=== PATIENT | male | born 1970 | race Caucasian/White ===

== ENCOUNTER 2019-07-30 15:38 | Inpatient (IN) | payer OTHER ==
[2019-07-30] VITALS (9 sets, daily range): BP systolic 140–158; BP diastolic 70–84
[~2019-07-30] VITALS: Ht 175.2 cm; Wt 111.0 kg
[2019-07-30] MEDS ORDERED: KETAMINE/NaCl 50 MG/5 ML SYRINGE (ED ONLY) ONE (15:49)
[2019-07-30] MEDS ORDERED: fentaNYL INJECTION 100 MCG/2 ML AMP ONE ×2 (15:50→20:10)
[2019-07-30] MEDS ORDERED: ONDANSETRON 4 MG/2 ML (SDV) Z0FRAN ONE ×3 (15:50→23:30)
[2019-07-30 16:00] LABS: HEMOGLOBIN 13.9 G/DL (13.3-17.7); MEAN PLATELET VOLUME 11.4 FL (7.4-10.4); RED CELL DISTRIBUTION WIDTH 13.2 % (10.0-14.5); WHITE BLOOD COUNT 29.5 10^3/uL (4.3-11.0)
[2019-07-30] MEDS ORDERED: HOLD METFORMIN - RECEIVED CONTRAST 20 ML VIAL IV SCH ×2 (16:00→16:15)
[2019-07-30] MEDS ORDERED: fentaNYL INJECTION 100 MCG/2 ML AMP IVP ONE (16:00)
[2019-07-30] MEDS ORDERED: NS 100 ML (IVPB) BAG IV ONE ×2 (16:00→16:15)
[2019-07-30] MEDS ORDERED: KETAMINE/NaCl 50 MG/5 ML SYRINGE (ED ONLY) IV ONE (16:00)
[2019-07-30] MEDS ORDERED: IOHEXOL 350 MG/ML 100 ML (OMNIPAQUE 350) VIAL IV ONE ×2 (16:00→16:15)
--- NOTE | 2019-07-30 16:18 | Diagnostic Imaging Report ---
INDICATION: Femur fracture. TIME OF EXAMINATION: 3:52 PM. COMPARISON: No prior studies are available for comparison. FINDINGS: The heart size is normal. The pulmonary vascularity is unremarkable. The lungs are clear. No infiltrate, effusion, or pneumothorax is detected. IMPRESSION: No acute cardiopulmonary process is detected. Dictated by: Dictated on workstation # [id number]
[2019-07-30 16:22] LABS: ALANINE AMINOTRANSFERASE 43 U/L (0-55); ALBUMIN 3.6 GM/DL (3.2-4.5); ALKALINE PHOSPHATASE 25 U/L (40-136); BILIRUBIN,DIRECT 0.1 MG/DL (0.0-0.3); BILIRUBIN,INDIRECT 0.3 MG/DL; BILIRUBIN,TOTAL 0.4 MG/DL (0.1-1.0); BUN/CREATININE RATIO 32; CARBON DIOXIDE 17 MMOL/L (21-32); CHLORIDE 102 MMOL/L (98-107); CREATININE SERUM 1.13 MG/DL (0.60-1.30); GFR ESTIMATED > 60; GLUCOSE 242 MG/DL (70-105); POTASSIUM 4.2 MMOL/L (3.6-5.0); SODIUM 134 MMOL/L (135-145)
--- NOTE | 2019-07-30 16:24 | Diagnostic Imaging Report ---
EXAMINATION: Left femur 2 or more views. HISTORY: Trauma. FINDINGS: No comparison available. There is a displaced comminuted and angulated mid left femoral fracture with an 11 cm butterfly fragment. Knee joint and hip joint alignment is normal. IMPRESSION: 1. Displaced, angled and comminuted midshaft left femoral fracture with large butterfly fragment. Dictated by: Dictated on workstation # [id number]
--- NOTE | 2019-07-30 16:24 | Diagnostic Imaging Report ---
INDICATION: Trauma. TIME OF EXAM: 03:54 p.m. FINDINGS: AP view of the pelvis shows femoral acetabular alignment to be normal. Both hips appear to be intact. Very slight prominence of the symphysis is noted. Left superior pubic ramus also appears to be slightly cephalad to the right superior pubic ramus. SI joints do not appear to be widened. No definite fracture is seen. IMPRESSION: There is very slight widening of the symphysis pubis as well as some minimal malalignment between the superior pubic rami. Pelvic fractures cannot be excluded, although no definite SI joint widening is seen. CT through the pelvis is recommended for further evaluation. This was discussed with Dr. Sanchez of the emergency department prior to this dictation. Dictated by: Dictated on workstation # [id number]
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
[2019-07-30] MEDS ORDERED: LIDOCAINE UROJET 2% GEL 10 ML PKG ONE (16:43)
[2019-07-30] MEDS ORDERED: HYDROmorphone 2 MG/ML VIAL (DILAUDID) ONE ×3 (16:43→22:35)
[2019-07-30] MEDS ORDERED: ONDANSETRON 4 MG/2 ML (SDV) Z0FRAN IVP ONE ×2 (16:45→20:15)
[2019-07-30] MEDS ORDERED: HYDROmorphone 2 MG/ML VIAL (DILAUDID) IV ONE ×3 (16:45→23:15)
[2019-07-30] MEDS ORDERED: LIDOCAINE UROJET 2% GEL 10 ML PKG TOP ONE (16:45)
[2019-07-30] MEDS ORDERED: TRANEXAMIC ACID INJECTION 1,000 MG in NS (IVPB) 50 ML IV ONE (16:45)
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
[2019-07-30] MEDS ORDERED: TRANEXAMIC ACID 100 MG/ML 10 ML INJECTION IV ONE (16:55)
[2019-07-30] MEDS ORDERED: NS (IVPB) 250 ML ONE (16:55)
[2019-07-30] MEDS ORDERED: TRANEXAMIC ACID INJECTION 1,000 MG in NS (IVPB) 250 ML IV SCH (17:00)
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
[2019-07-30] MEDS ORDERED: ceFAZolin 2 GM IV Premixed 50 ML IV ONE (18:00)
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
[2019-07-30 18:14] LABS: BILIRUBIN,URINE NEGATIVE (NEGATIVE); CLARITY,URINE CLEAR; COLOR,URINE YELLOW; GLUCOSE, URINE (UA) 1+ (NEGATIVE); KETONES,URINE NEGATIVE (NEGATIVE); LEUKOCYTE ESTERASE ,URINE NEGATIVE (NEGATIVE); NITRITE,URINE NEGATIVE (NEGATIVE); PH,URINE 5 (5-9); PROTEIN,URINE 2+ (NEGATIVE)
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
[2019-07-30 18:21] LABS: AMORPHOUS SEDIMENT,UR FEW AMOR URATES /LPF; BACTERIA,URINE TRACE /HPF; SQUAMOUS EPITHELIAL CELL,UR 0-2 /HPF
[2019-07-30] MEDS ORDERED: TETANUS,DIPTH,PERTUSS P/F (BOOSTRIX) 0.5 ML VIAL IM ONE (19:00)
[2019-07-30] MEDS: LACTATED RINGERS 1,000 ML IV SCH ×2 (19:09→21:45)
[2019-07-30] MEDS ORDERED: LIDOCAINE PF 2% 5 ML (XYLOCAINE) VIAL ONE (20:10)
[2019-07-30] MEDS ORDERED: SUCCINYLCHOLINE INJ 100 MG/5 ML SYR ONE (20:10)
[2019-07-30] MEDS ORDERED: ROCURONIUM 10 MG/ML 5 ML SYRINGE IV ONE (20:10)
[2019-07-30] MEDS ORDERED: DEXAMETHASONE 10 MG/ML (DECADRON) 1 ML VIAL ONE (20:10)
[2019-07-30] MEDS ORDERED: proPOfol 200 MG/20 ML (DIPRIVAN) VIAL IV ONE (20:10)
[2019-07-30] MEDS ORDERED: SEVOFLURANE (ULTANE) 15 ML INHAL SOLN ONE ×7 (20:10→21:48)
[2019-07-30] MEDS ORDERED: MIDAZOLAM 2 MG/2 ML (VERSED) VIAL ONE (20:11)
[2019-07-30] MEDS ORDERED: ceFAZolin INJECTION 2,000 MG ONE (20:37)
[2019-07-30] MEDS ORDERED: ROPIVACAINE 5MG/ML 30ML VIAL ONE (21:52)
[2019-07-30] MEDS ORDERED: METOCLOPRAMIDE INJ 10 MG/2 ML (REGLAN) ONE (22:16)
[2019-07-30] MEDS ORDERED: NEOSTIGMINE 3 MG/3 ML VIAL ONE (22:21)
[2019-07-30] MEDS ORDERED: GLYCOPYRROLATE 0.2 MG/ML (ROBINUL) 2 ML VIAL ONE (22:21)
[2019-07-30] MEDS ORDERED: NEO/POLY/BAC (NEOSPORIN) OINT 15 GM TUBE ONE (22:30)
[2019-07-30] MEDS ORDERED: fentaNYL INJECTION 100 MCG/2 ML AMP IVP PRN (23:15)
[2019-07-30] MEDS ORDERED: ONDANSETRON 4 MG/2 ML (SDV) Z0FRAN IVP PRN (23:15)
[2019-07-30] MEDS ORDERED: MEPERIDINE (DEMEROL) INJ 50 MG/ML IVP ONE (23:15)
[2019-07-30] MEDS ORDERED: MEPERIDINE (DEMEROL) INJ 50 MG/ML ONE (23:48)
--- NOTE | 2019-07-30 23:53 | Operative Report - Ortho ---
Operative Report Surgeon (s)/Steam Shovel Operator (s) Surgeon MAGALI LI MD Steam Shovel Operator n/a Pre-Operative Diagnosis comminuted fracture left femoral shaft Post-Operative Diagnosis same Operative Report Date of Procedure: Jul 30, 2019 Name of Procedure Performed: Closed IM rodding left femoral shaft fracture. 12 mm x 400 mm IM ada with 2 proximal and 2 distal locking screws Description & Findings The patient was seen in the emergency room and treatment options were discussed. I am rodding was recommended. The patient would like proceed understanding the procedure risks and complications. Patient was given 2 g Ancef IV preoperatively. He is taken to the operating room and after administration of general anesthesia was placed on the fracture table. A traction post was used. The right leg was placed in the well leg dukes with flexion and abduction of the hip and flexion of the knee. The left foot and ankle were placed in the traction boot which was reinforced with Coban and. Traction was then placed across the fracture site. The hip was placed in adduction. Image is used to visualize the fracture and fracture was out to length but displaced in both views which could be corrected with posterior direction on the distal aspect of the proximal fragment and ADD duction of the distal aspect of the proximal fragment. Initially the foot was placed in about 10 of internal rotation. A timeout was then performed. The left hip thigh and knee were then prepped and draped in the usual sterile manner. Incision was made just proximal to the tip of the greater trochanter. This was taken down through subtendinous tissue and through the gluteal fascia down to the tip of the greater trochanter. A guidewire was placed in the medial aspect of the tip of the greater trochanter in the central portion on the lateral view and this was advanced into the proximal femur. This was then overreamed with proximal reamer. The guidewire was removed and a beaded guidewire was placed into the proximal fragment. Using the reduction device the fracture was able to be reduced fairly well and the guidewire was advanced across the fracture site in both AP and lateral views and down to the knee just at the level of the proximal patella. This was then measured and a 400 mm ada was selected. The femur was reamed over the guidewire initially with a 8.5 mm reamer and advancing every 0.5 mm up to 13 mm. There was good reaming both proximal and distal to the fracture with the 13 mm reamer starting in about 11- 1/2 mm. Traction was taken off of the femur at this point and the fracture gap was reduced to approximately 2 mm. This could not be corrected with additional manipulation at the fracture site. At this point the 12 mm x 400 mm ada was i nserted and with the fracture reduced fairly well was advanced across the fracture site down into the distal femur. It was advanced to just below the opening in the greater trochanter which left it added the level of the patella superiorly in the distal fragment. The fracture was fairly well reduced even the comminuted aspect with the large butterfly fragment posterior fairly well reduced. The small butterfly fragment was fairly well reduced. Attempts were made to close the gap down at the non-comminuted lateral aspect of the fracture but this could only be reduced to about 2 mm with attempts at reduction. It was felt was probably some soft tissue between the fragments at this level. At this point the rotation was evaluated and the foot was placed in neutral position which matched up the thickness of the cortices. This point the 2 proximal locking screws were inserted through small neck incisions and guides which were then measured after drilling and appropriate length screws were inserted. The proximal femoral guide was then removed. At this point the hip and femur were brought out into neutral position and again the rotation was evaluated and it was felt that rotation was appropriate and accurate. The image was set up in the lateral view for distal locking screw insertion. Once in position the proximal screw was placed through the static hole drilling measuring and inserti ng the appropriate length screw. The next screw was placed through the slot distally again with drilling measuring and inserting appropriate length screws. This point the entire femur was evaluated and permanent images were obtained. These were AP and lateral hip, AP and lateral of the knee and AP and lateral of the fracture site. The wounds were irrigated with normal saline. Fascia was closed with #1 Vicryl. Subtendinous tissue with 2-0 Vicryl and the skin with skin clips. All wounds were dressed with antibiotic ointment and Adaptic and 4 x 4's including the abrasion which was noted at the lateral aspect of the distal femur and around the knee. The leg was wrapped with Kerlix and an Wali wrap. The right leg was taken out of the well leg dukes and the left foot and ankle were taken of the traction boot. Both knees were evaluated and no instability was noted. The legs had equal internal and neck or rotation at the hips. Leg lengths were equal. Anesthesia then inserted a femoral nerve block. The patient was then transferred to his hospital bed then to ICU for recovery. He tolerated procedure well. After the procedure on review of the x-rays it was noted that the AP and lateral of the fracture site was not saved from image or fluoroscopy. Permanent x-rays of the femur will be obtained Anesthesia Type Gen. Estimated Blood Loss 150 mL's. Replacement none. Drains none Packing none. Specimen(s) collected/removed None MAGALI LI MD Jul 30, 2019 23:53 POS
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
[2019-07-31] VITALS (23 sets, daily range): BP systolic 108–154; BP diastolic 73–94
[2019-07-31] MEDS: LACTATED RINGERS 1,000 ML IV SCH ×4 (00:17→20:24)
[2019-07-31] MEDS ORDERED: fentaNYL INJECTION 100 MCG/2 ML AMP ONE (00:57)
[2019-07-31] MEDS: fentaNYL INJECTION 100 MCG/2 ML AMP IVP PRN ×5 (01:03→20:10)
--- NOTE | 2019-07-31 01:44 | NUR ---
Call placed to Dr Fitzgerald at this time to update on patient condition and to request stop order on TXA as per protocol patient dose is complete but order is continuous in the EMAR. Order to DC the TXA order and to hold Lovenox. also ordered patient to have CT scan in the am of abd/pelvis. Dilaudid 0.5mg IV q 2 hrs PRN pain also ordered. This RN will place telephone orders at this time.
[2019-07-31] MEDS ORDERED: HYDROmorphone 2 MG/ML VIAL (DILAUDID) ONE (01:55)
[2019-07-31] MEDS: HYDROmorphone 2 MG/ML VIAL (DILAUDID) IV PRN ×4 (01:58→23:50)
[2019-07-31 03:13] LABS: BASOPHILS % (AUTO) 0 % (0-10); EOSINOPHILS % (AUTO) 0 % (0-10); HEMATOCRIT 34 % (40-54); HEMOGLOBIN 11.8 G/DL (13.3-17.7); LYMPHOCYTES % (AUTO) 4 % (12-44); MEAN CORPUSCULAR HEMOGLOBIN 29 PG (25-34); MEAN CORPUSCULAR HGB CONC 35 G/DL (32-36); MEAN CORPUSCULAR VOLUME 82 FL (80-99); MEAN PLATELET VOLUME 11.2 FL (7.4-10.4); MONOCYTES # (AUTO) 1.5 X 10^3 (0.0-1.0); MONOCYTES % (AUTO) 6 % (0-12); NEUTROPHILS # (AUTO) 24.5 X 10^3 (1.8-7.8); NEUTROPHILS % (AUTO) 91 % (42-75); PLATELET COUNT 308 10^3/uL (130-400); RED CELL DISTRIBUTION WIDTH 13.4 % (10.0-14.5)
[2019-07-31 03:46] LABS: BUN/CREATININE RATIO 28; CALCIUM 8.7 MG/DL (8.5-10.1); CARBON DIOXIDE 15 MMOL/L (21-32); CHLORIDE 103 MMOL/L (98-107); CREATININE SERUM 1.23 MG/DL (0.60-1.30); GFR ESTIMATED > 60; GLUCOSE 263 MG/DL (70-105); MAGNESIUM 1.7 MG/DL (1.6-2.4); PHOSPHORUS 5.1 MG/DL (2.3-4.7); POTASSIUM 5.1 MMOL/L (3.6-5.0); SODIUM 134 MMOL/L (135-145)
[2019-07-31] MEDS: ceFAZolin 2 GM IV Premixed 50 ML IV SCH ×2 (04:05→11:52)
[2019-07-31] MEDS: MAGNESIUM 1 GM/100 ML IVPB 100 ML IV SCH ×3 (04:08→04:49)
[2019-07-31] MEDS: POTASSIUM CL 10MEQ/50ML IVPB 50 ML IV SCH (04:10)
[2019-07-31] MEDS: KCL 20 MEQ TAB (K-DUR) PO SCH (04:11)
[2019-07-31 04:55] LABS: LYMPHOCYTES % (MANUAL) 2 %; MONOCYTES % (MANUAL) 4 %; NEUTROPHILS % (MANUAL) 94 %
[2019-07-31] MEDS ORDERED: CATHETER FLUSH 10 ML SYR IV PRN (07:00)
--- NOTE | 2019-07-31 07:15 | Diagnostic Imaging Report ---
INDICATION: Left femur fracture postop COMPARISON: None FINDINGS: Four views of the left femur demonstrate IM ada and cannulated screws in place. The fracture site in the mid femur is well aligned. There is no unexpected radiopaque foreign body. IMPRESSION: ORIF left femur Dictated by: Dictated on workstation # [id number]
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
--- NOTE | 2019-07-31 07:19 | Diagnostic Imaging Report ---
INDICATION: Shortness of breath. COMPARISON: 07/30/19 FINDINGS: Single view chest demonstrates clear lungs bilaterally. The heart is normal. There is no pneumothorax. Osseous structures normal. IMPRESSION: Negative chest. Dictated by: Dictated on workstation # [id number]
--- NOTE | 2019-07-31 07:20 | Diagnostic Imaging Report ---
INDICATION: Left femur. IMPRESSION: 4 fluoroscopic images left hip. Fluoroscopic time: 202 seconds. Dictated by: Dictated on workstation # [id number]
[2019-07-31] MEDS: oxyCODONE/APAP 5/325MG (PERCOCET 5) TABLET PO PRN ×4 (08:26→23:42)
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
[2019-07-31] MEDS ORDERED: ONDANSETRON 4 MG/2 ML (SDV) Z0FRAN IVP PRN (08:45)
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
[2019-07-31] MEDS ORDERED: FENO135C4 PO (10:39)
[2019-07-31] MEDS ORDERED: OMG1KC PO (10:39)
[2019-07-31] MEDS ORDERED: LISI-552 PO (10:39)
[2019-07-31] MEDS ORDERED: LORA10TA76 PO (10:39)
[2019-07-31] MEDS ORDERED: BACL20TA PO (10:40)
[2019-07-31] MEDS ORDERED: OXYC1TAB87 PO (10:40)
[2019-07-31] MEDS ORDERED: BACL10TA PO (10:42)
--- NOTE | 2019-07-31 10:42 | NUR ---
SPOKE WITH THE PATIENT ABOUT HIS MEDICATIONS. HE LISTED WHAT HE IS TAKING. I COMPARED IT WITH THE EXT MED HX AND CALLED [facility] TO VERIFY THE PAIN MEDICATIONS THAT WERE RECENTLY FILLED AND NOT SHOWING ON THE EXT MED HX. [facility] FILLED: 07-23-19 BACLOFEN 10MG TID #30 07-23-19 PERCOCET 5-325MG Q6H PRN #28 OTC MEDS: CLARITIN 10MG HS FISH OIL HS
--- NOTE | 2019-07-31 11:05 | NUR ---
Pastoral care visit.
[2019-07-31] MEDS ORDERED: ENOXAPARIN 40 MG/0.4 ML (LOVENOX) SYR SC SCH (11:15)
[2019-07-31] MEDS: HYDROcodone/APAP 5 MG/325 MG (LORTAB) TAB PO PRN (11:58)
--- NOTE | 2019-07-31 13:10 | Anesthesia-General Post-Op ---
General Patient Condition Mental Status/LOC: Same as Preop Cardiovascular: Satisfactory Nausea/Vomiting: Absent Respiratory: Satisfactory Pain: Controlled Complications: Absent Post Op Complications Complications None Follow Up Care/Instructions Patient Instructions None needed. Anesthesia/Patient Condition Patient Condition Patient is doing well, no complaints, stable vital signs, no apparent adverse anesthesia problems. No complications reported per nursing. BRENDA MARIEE CRNA Jul 31, 2019 13:10 POS
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
--- NOTE | 2019-07-31 13:46 | Physical Therapy Daily Note ---
PT Daily Note-Current Subjective Patient in bed pre tx, agrees to PT, has 6/10 pain in both wrists. Appearance Patient in recliner at bedside post tx with nurse call, phone, tray, all needs met. Mental Status Patient Orientation: Person, Place, Situation Attachments: SCD's, Powers Catheter, IV Transfers SCALE: Activities may be completed with or without assistive devices. 4-Ojgkbmviyr-xsvtfyg completes the activity by him/herself with no assistance from a helper. 5-Set-up or Clean-up Assistance-helper sets up or cleans up; patient completes activity. [place] assists only prior to or following the activity. 4-Supervision or Touching Assistance-helper provides verbal cues and/or touching/steadying and/or contact guard assistance as patient completes activity. Assistance may be provided throughout the activity or intermittently. 3-Partial/Moderate Assistance-helper does LESS THAN HALF the effort. [place] lifts, holds or supports trunk or limbs, but provides less than half the effort. 2-Substantial/Maximal Assistance-helper does MORE THAN HALF the effort. [place] lifts or holds trunk or limbs and provides more than half the effort. 6-Yalisnsuc-yeulkg does ALL the effort. Patient does none of the effort to complete the activity. Or, the assistance of 2 or more helpers is required for the patient to complete the activity. If activity was not attempted, code reason: 7-Patient Refused. 9-Not Applicable-not attempted and the patient did not perform the activity before the current illness, exacerbation or injury. 10-Not Attempted due to Environmental Limitations-(lack of equipment, weather restraints, etc.). 88-Not Attempted due to Medical Conditions or Safety Concerns. Roll Left to Right (QC): 3 Sit to Lying (QC): 3 Sit to Stand (QC): 4 Chair/Ipq-yx-Qwyrq Xfer(QC): 4 CGA for transfer, patient performed it quickly but seemed to keep weight off of left leg, however he did lean his arm onto the sonoscope operator of the walker on the right side. Patient needs a bilateral platform walker. Weight Bearing Right Lower Extremity: Right Full Weight Bearing Left Lower Extremity: Left Partial Weight Bearing Exercises Seated Therapy Exercises: Ankle pumps, Long arc quads, Hip flexion Seated Reps: 15 (AAROM on the left side except for ankle pumps) Treatments bed mobility and transfers, LE exercise Assessment Current Status: Fair Progress no nausea, patient was able to perform a stand pivot transfer PT Care Home Goals Public Health Internship Goals PT Public Health Internship Goals Time Frame: Aug 07, 2019 Sit to Lying (QC): 4 (SBA) Lying-Sitting on Side/Bed(QC): 4 (SBA) Sit to Stand (QC): 4 (SBA) Roll Left to Right (QC): 6 Chair/Hqt-kq-Qmbdr Xfer(QC): 4 (SBA) Distance: 20' Walk 10 feet (QC): 4 (CGA) Gait Assistive Device: Walker Platform PT Plan Problem List Problem List: Activity Tolerance, Functional Strength, Safety, Balance, Gait, Transfer, Bed Mobility, ROM Treatment/Plan Treatment Plan: Continue Plan of Care Treatment Plan: Bed Mobility, Concurrent Therapy, Education, Functional Activity Adonis, Functional Strength, Gait, Safety, Therapeutic Exercise, Transfers Treatment Duration: Aug 07, 2019 Frequency: 11 times per week Estimated Hrs Per Day: .25 hour per day Patient and/or Family Agrees t: Yes Safety Risks/Education Patient Education: Transfer Techniques, Reviewed Precautions, Correct Positioning, Safety Issues Teaching Recipient: Patient Teaching Methods: Demonstration, Discussion Response to Teaching: Reinforcement Needed Time/GCodes Time In: 1326 Time Out: 1339 Total Billed Treatment Time: 13 Total Billed Treatment 1 visit FA MARSHALL DASILVA PT Jul 31, 2019 13:46 POS
[2019-07-31] MEDS ORDERED: ceFAZolin 2 GM IV Premixed 50 ML IV SCH (20:00)
[2019-07-31] MEDS: lisINopril 20 MG (PRINIVIL) TABLET PO SCH (21:57)
[2019-08-01] VITALS (22 sets, daily range): BP systolic 110–147; BP diastolic 54–89
[2019-08-01 03:34] LABS: BASOPHILS % (AUTO) 0 % (0-10); EOSINOPHILS % (AUTO) 0 % (0-10); HEMATOCRIT 25 % (40-54); HEMOGLOBIN 8.6 G/DL (13.3-17.7); LYMPHOCYTES # (AUTO) 1.5 X 10^3 (1.0-4.0); LYMPHOCYTES % (AUTO) 13 % (12-44); MEAN CORPUSCULAR HEMOGLOBIN 29 PG (25-34); MEAN CORPUSCULAR HGB CONC 35 G/DL (32-36); MEAN CORPUSCULAR VOLUME 84 FL (80-99); MEAN PLATELET VOLUME 11.1 FL (7.4-10.4); MONOCYTES # (AUTO) 1.4 X 10^3 (0.0-1.0); MONOCYTES % (AUTO) 13 % (0-12); NEUTROPHILS # (AUTO) 8.3 X 10^3 (1.8-7.8); NEUTROPHILS % (AUTO) 74 % (42-75); PLATELET COUNT 179 10^3/uL (130-400); RED CELL DISTRIBUTION WIDTH 13.1 % (10.0-14.5); WHITE BLOOD COUNT 11.3 10^3/uL (4.3-11.0)
[2019-08-01] MEDS: oxyCODONE/APAP 5/325MG (PERCOCET 5) TABLET PO PRN ×5 (03:39→20:33)
[2019-08-01 03:50] LABS: BUN/CREATININE RATIO 30; CALCIUM 7.9 MG/DL (8.5-10.1); CARBON DIOXIDE 24 MMOL/L (21-32); CHLORIDE 100 MMOL/L (98-107); CREATININE SERUM 0.93 MG/DL (0.60-1.30); GFR ESTIMATED > 60; GLUCOSE 197 MG/DL (70-105); MAGNESIUM 2.1 MG/DL (1.6-2.4); PHOSPHORUS 2.8 MG/DL (2.3-4.7); POTASSIUM 4.3 MMOL/L (3.6-5.0); SODIUM 134 MMOL/L (135-145)
[2019-08-01] MEDS: fentaNYL INJECTION 100 MCG/2 ML AMP IVP PRN (03:55)
[2019-08-01] MEDS: POTASSIUM CL 10MEQ/50ML IVPB 50 ML IV SCH (05:23)
[2019-08-01] MEDS: KCL 20 MEQ TAB (K-DUR) PO SCH (05:23)
[2019-08-01] MEDS: LACTATED RINGERS 1,000 ML IV SCH ×2 (05:23→18:49)
[2019-08-01] MEDS: MAGNESIUM 1 GM/100 ML IVPB 100 ML IV SCH (05:23)
--- NOTE | 2019-08-01 09:32 | Physical Therapy Daily Note ---
PT Daily Note-Current Subjective Patient in bed pre tx, agrees to PT, has pain of 8/10 in left leg. Patient just got through with OT and just got back to bed and doesn't want to get back out at this time. Another platform was obtained for the walker so it is now a bilateral platform walker (due to right wrist pain). Patient will perform BLE ex this morning and get out of bed and try to ambulate this afternoon. Appearance Patient in bed post tx with nurse call, phone, tray, all needs met, SCD's on. Mental Status Patient Orientation: Normal For Age Attachments: SCD's, Powers Catheter, IV Transfers SCALE: Activities may be completed with or without assistive devices. 2-Wuqnijqfsu-oqiyrpx completes the activity by him/herself with no assistance from a helper. 5-Set-up or Clean-up Assistance-helper sets up or cleans up; patient completes activity. [place] assists only prior to or following the activity. 4-Supervision or Touching Assistance-helper provides verbal cues and/or touching/steadying and/or contact guard assistance as patient completes activity. Assistance may be provided throughout the activity or intermittently. 3-Partial/Moderate Assistance-helper does LESS THAN HALF the effort. [place] lifts, holds or supports trunk or limbs, but provides less than half the effort. 2-Substantial/Maximal Assistance-helper does MORE THAN HALF the effort. [place] lifts or holds trunk or limbs and provides more than half the effort. 9-Ofecjvlmh-udphja does ALL the effort. Patient does none of the effort to complete the activity. Or, the assistance of 2 or more helpers is required for the patient to complete the activity. If activity was not attempted, code reason: 7-Patient Refused. 9-Not Applicable-not attempted and the patient did not perform the activity before the current illness, exacerbation or injury. 10-Not Attempted due to Environmental Limitations-(lack of equipment, weather restraints, etc.). 88-Not Attempted due to Medical Conditions or Safety Concerns. Weight Bearing Right Lower Extremity: Right Full Weight Bearing Left Lower Extremity: Left Partial Weight Bearing Exercises Supine Ex: Ankle pumps, Quad Set, Glut sets, Heel Slides, Short Arc Quads, Straight leg raise, Hip abd/add Supine Reps: 15 (AAROM on the left leg except for QS and GS and HS) Treatments BLE exercise Assessment Current Status: Fair Progress better quad control on left leg PT Long-Term Goals Fruit Farmer Goals PT Fruit Farmer Goals Time Frame: Aug 07, 2019 Sit to Lying (QC): 4 (SBA) Lying-Sitting on Side/Bed(QC): 4 (SBA) Sit to Stand (QC): 4 (SBA) Roll Left to Right (QC): 6 Chair/Qux-kw-Nzkhb Xfer(QC): 4 (SBA) Distance: 20' Walk 10 feet (QC): 4 (CGA) Gait Assistive Device: Walker Platform PT Plan Problem List Problem List: Activity Tolerance, Functional Strength, Safety, Balance, Gait, Transfer, Bed Mobility, ROM Treatment/Plan Treatment Plan: Continue Plan of Care Treatment Plan: Bed Mobility, Concurrent Therapy, Education, Functional Activity Adonis, Functional Strength, Gait, Safety, Therapeutic Exercise, Transfers Treatment Duration: Aug 07, 2019 Frequency: 11 times per week Estimated Hrs Per Day: .25 hour per day Patient and/or Family Agrees t: Yes Safety Risks/Education Patient Education: Correct Positioning, Safety Issues Teaching Recipient: Patient Teaching Methods: Demonstration, Discussion Response to Teaching: Reinforcement Needed Time/GCodes Time In: 0908 Time Out: 09 Total Billed Treatment Time: 13 Total Billed Treatment 1 visit EX 13' MARSHALL LONG PT Aug 01, 2019 09:32 POS
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
--- NOTE | 2019-08-01 10:16 | Occupational Ther Daily Note ---
OT Current Status-Daily Note Subjective Pt. reports 7/10 pain in back and left LE. Nursing notified and gives pt. pain meds. Appearance Pt. in bed. Agrees to work with OT. Mental Status/Objective Patient Orientation: Person, Place, Time, Situation ADL-Treatment Therapy Code Descriptions/Definitions Functional Briggs Measure: 0=Not Assessed/NA 4=Minimal Assistance 1=Total Assistance 5=Supervision or Setup 2=Maximal Assistance 6=Modified Briggs 3=Moderate Assistance 7=Complete IndependenceSCALE: Activities may be completed with or without assistive devices. 1-Tiwnstagpe-uckgvfz completes the activity by him/herself with no assistance from a helper. 5-Set-up or Clean-up Assistance-helper sets up or cleans up; patient completes activity. [place] assists only prior to or following the activity. 4-Supervision or Touching Assistance-helper provides verbal cues and/or touching/steadying and/or contact guard assistance as patient completes activity. Assistance may be provided throughout the activity or intermittently. 3-Partial/Moderate Assistance-helper does LESS THAN HALF the effort. [place] lifts, holds or supports trunk or limbs, but provides less than half the effort. 2-Substantial/Maximal Assistance-helper does MORE THAN HALF the effort. [place] lifts or holds trunk or limbs and provides more than half the effort. 8-Atdqyidce-ymjeol does ALL the effort. Patient does none of the effort to complete the activity. Or, the assistance of 2 or more helpers is required for the patient to complete the activity. If activity was not attempted, code reason: 7-Patient Refused. 9-Not Applicable-not attempted and the patient did not perform the activity before the current illness, exacerbation or injury. 10-Not Attempted due to Environmental Limitations-(lack of equipment, weather restraints, etc.). 88-Not Attempted due to Medical Conditions or Safety Concerns. Oral Hygiene (QC): 5 (Set up with built up handle on toothbrush, seated on side of bed.) Pt. and OT talk about pt's current status. He reports that his right wrist is still sore and difficult to move. Dr. Lew came in and assessed it. Wrist splint to be ordered for pt. Pt. requests a second platform for walker before standing. PT notified and will put platform on walker. Pt. agrees to transfer to side of bed. Requires mod assist overall to transfer supine-sit, with careful positioning of left LE. Pt. reports feeling dizzy. BP and 02 sats appr opriate. Pt. sat on side of bed and brushed teeth, washed face. OT washed pt's hair with shampoo cap. Pt. able to comb hair afterwards. Pt. sat on side of bed with no physical assist, approximately 20 minutes. Requests to lay back down. Transferred sit-supine with min assist, and max x 2 for re-positioning in bed. All needs met back in bed. Education OT Patient Education: Correct positioning, Modified ADL techniques, Progress toward Goal/Update tx plan, Purpose of tx/functional activities, Reviewed precautions, Rehab process, Transfer techniques Teaching Recipient: Patient Teaching Methods: Demonstration, Discussion Response to Teaching: Verbalize Understanding, Return Demonstration OT Short Term Goals Short Term Goals Time Frame: Aug 07, 2019 Eating(FIM): 6 Grooming(FIM): 4 Bathing(FIM): 4 Upper Body Dressing(FIM): 4 Lower Body Dressing(FIM): 3 Toileting(FIM): 4 Transfers (B,C,W/C) (FIM): 4 Toilet/Commode Transfer(FIM): 4 Additional Short Term Goals: 1-Demonstrate ADL Tasks, 2-Verbalize Understanding, 3-ImproveStrength/Adonis 1=Demonstrate adherence to instructed precautions during ADL tasks. 2=Patient will verbalize/demonstrate understanding of assistive devices/[place] fications for ADL. 3=Patient will improve strength/tolerance for activity to enable patient to perform ADL's. OT Language Therapist Goals Mcc Goals Time Frame: Aug 14, 2019 Eating (QC): 6 Oral Hygiene (QC): 6 Shower/Bathe Self (QC): 6 Upper Body Dressing (QC): 6 Lower Body Dressing (QC): 6 On/Off Footwear (QC): 6 Toileting Hygiene (QC): 6 Toilet/Commode Transfer (QC): 6 Additional Goals: 1-Demonstrate ADL Tasks, 2-Verbalize Understanding, 3- ImproveStrength/Adonis 1=Demonstrate adherence to instructed precautions during ADL tasks. 2=Patient will verbalize/demonstrate understanding of assistive devices/modifications for ADL. 3=Patient will improve strength/tolerance for activity to enable patient to perform ADL's. OT Education/Plan Problem List/Assessment Assessment: Decreased Activ Tolerance, Decreased UE Strength, Dependent Transfers, Impaired Bed Mobility, Impaired Coordination, Impaired I ADL's, Impaired Self-Care Skills, Restricted Funct UE ROM Discharge Recommendations Plan/Recommendations: Continue POC Therapy Discharge Recommendati: Post Acute OT Comment Equipment needs and discharge location to be determined. Treatment Plan/Plan of Care Treatment,Training & Education: Yes Patient would benefit from OT for education, treatment and training to promote independence in ADL's, mobility, safety and/or upper extremity function for ADL's. Plan of Care: ADL Retraining, Functional Mobility, UE Funct Exercise/Act Treatment Duration: Aug 14, 2019 Frequency: 5 times per week Estimated Hrs Per Day: .5 hour per day Agreement: Yes Rehab Potential: Good Time/GCodes Start Time: 08:30 Stop Time: 09:05 Total Time Billed (hr/min): 35 Billed Treatment Time 1, FA x 20minutes, ADL x 15minutes SAMIRA DE LEON OT Aug 01, 2019 10:16 POS
--- NOTE | 2019-08-01 11:10 | NUR ---
Visit and communion provided by Rn Compliance.
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
[2019-08-01 12:32] LABS: HEMOGLOBIN 8.6 G/DL (13.3-17.7)
--- NOTE | 2019-08-01 15:38 | Physical Therapy Daily Note ---
PT Daily Note-Current Subjective pt in bed pre-tx. Pt agrees to PT this afternoon. pt reports 4/10 pain in his low back. Appearance pt in recliner post tx with feet down. pt has call light, room phone, and tray table in reach with all needs met at this time. pt has a family member in room at this time and for duration of session. Mental Status Patient Orientation: Person, Place, Time, Situation Attachments: SCD's, IV pulse-ox, tele, BP cuff. Transfers SCALE: Activities may be completed with or without assistive devices. 1-Rhemgpiveq-wydcbst completes the activity by him/herself with no assistance from a helper. 5-Set-up or Clean-up Assistance-helper sets up or cleans up; patient completes activity. [place] assists only prior to or following the activity. 4-Supervision or Touching Assistance-helper provides verbal cues and/or touching/steadying and/or contact guard assistance as patient completes activity. Assistance may be provided throughout the activity or intermittently. 3-Partial/Moderate Assistance-helper does LESS THAN HALF the effort. [place] lifts, holds or supports trunk or limbs, but provides less than half the effort. 2-Substantial/Maximal Assistance-helper does MORE THAN HALF the effort. [place] lifts or holds trunk or limbs and provides more than half the effort. 4-Ajfkitplt-ohrrum does ALL the effort. Patient does none of the effort to complete the activity. Or, the assistance of 2 or more helpers is required for the patient to complete the activity. If activity was not attempted, code reason: 7-Patient Refused. 9-Not Applicable-not attempted and the patient did not perform the activity bef ore the current illness, exacerbation or injury. 10-Not Attempted due to Environmental Limitations-(lack of equipment, weather r estraints, etc.). 88-Not Attempted due to Medical Conditions or Safety Concerns. Sit to Stand (QC): 4 (CGA) Chair/Zgw-uu-Gkufe Xfer(QC): 3 (Romy stand and stepping.) pt was able to stand from EOB and take multiple steps with B/L platform FWW over to the chair. Pt takes fast choppy steps and is hurried this session. Weight Bearing Right Lower Extremity: Right Full Weight Bearing Left Lower Extremity: Left Partial Weight Bearing Gait Training Does the Patient Walk?: Yes Distance: 5' Gait Assistive Device: Walker Platform (B/L platform) pt maintained.PWB on the LLE. Wheelchair Training Does the Pt Use a Wheelchair?: No Exercises Supine Ex: Ankle pumps, Quad Set Supine Reps: 10 Treatments Pt performed LE strengthening exercises, skilled ambulation training, transfer training, bed mobility training, and education this date. Assessment Current Status: Good Progress Pt ernesto EOB sitting with mod light headedness without drop in BP from supine. Pt was able to take multiple steps from bed to chair with the platformed FWW without increasing pain. Pt continues to have restricted LE ROM while in supine and c/o pain with movement in his groin. PT Prospecting Observer Goals Prospecting Observer Goals PT Prospecting Observer Goals Time Frame: Aug 07, 2019 Sit to Lying (QC): 4 (SBA) Lying-Sitting on Side/Bed(QC): 4 (SBA) Sit to Stand (QC): 4 (SBA) Roll Left to Right (QC): 6 Chair/Sum-bt-Cylyr Xfer(QC): 4 (SBA) Distance: 20' Walk 10 feet (QC): 4 (CGA) Gait Assistive Device: Walker Platform PT Plan Problem List Problem List: Activity Tolerance, Functional Strength, Safety, Balance, Gait, Transfer, Bed Mobility, ROM Treatment/Plan Treatment Plan: Continue Plan of Care Treatment Plan: Bed Mobility, Education, Functional Activity Adonis, Functional Strength, Gait, Safety, Therapeutic Exercise, Transfers Treatment Duration: Aug 07, 2019 Frequency: 11 times per week Estimated Hrs Per Day: .25 hour per day Patient and/or Family Agrees t: Yes Safety Risks/Education Patient Education: Gait Training, Transfer Techniques, Correct Positioning, Safety Issues Teaching Recipient: Patient Teaching Methods: Demonstration, Discussion Response to Teaching: Return Demonstration, Reinforcement Needed Time/GCodes Time In: 1237 Time Out: 1250 Total Billed Treatment Time: 13 Total Billed Treatment 1 visit FA 13' TRACE MICHAELS PT Aug 01, 2019 15:38 POS
[2019-08-01] MEDS: lisINopril 20 MG (PRINIVIL) TABLET PO SCH (20:33)
[2019-08-02] VITALS (27 sets, daily range): BP systolic 99–162; BP diastolic 63–90
[2019-08-02] MEDS: oxyCODONE/APAP 5/325MG (PERCOCET 5) TABLET PO PRN ×3 (01:00→09:10)
[2019-08-02 03:38] LABS: BASOPHILS % (AUTO) 0 % (0-10); EOSINOPHILS # (AUTO) 0.1 10^3/uL (0.0-0.3); EOSINOPHILS % (AUTO) 2 % (0-10); HEMATOCRIT 23 % (40-54); HEMOGLOBIN 7.9 G/DL (13.3-17.7); LYMPHOCYTES # (AUTO) 1.6 X 10^3 (1.0-4.0); LYMPHOCYTES % (AUTO) 20 % (12-44); MEAN CORPUSCULAR HEMOGLOBIN 29 PG (25-34); MEAN CORPUSCULAR HGB CONC 34 G/DL (32-36); MEAN CORPUSCULAR VOLUME 84 FL (80-99); MEAN PLATELET VOLUME 11.1 FL (7.4-10.4); MONOCYTES # (AUTO) 0.8 X 10^3 (0.0-1.0); MONOCYTES % (AUTO) 10 % (0-12); NEUTROPHILS # (AUTO) 5.4 X 10^3 (1.8-7.8); NEUTROPHILS % (AUTO) 68 % (42-75); PLATELET COUNT 167 10^3/uL (130-400); RED CELL DISTRIBUTION WIDTH 12.8 % (10.0-14.5)
[2019-08-02 04:06] LABS: ALANINE AMINOTRANSFERASE 26 U/L (0-55); ALBUMIN 3.1 GM/DL (3.2-4.5); ALKALINE PHOSPHATASE 33 U/L (40-136); BILIRUBIN,TOTAL 0.5 MG/DL (0.1-1.0); BUN/CREATININE RATIO 22; CARBON DIOXIDE 22 MMOL/L (21-32); CHLORIDE 107 MMOL/L (98-107); CREATININE SERUM 0.76 MG/DL (0.60-1.30); GFR ESTIMATED > 60; GLUCOSE 150 MG/DL (70-105); MAGNESIUM 2.1 MG/DL (1.6-2.4); PHOSPHORUS 2.1 MG/DL (2.3-4.7); SODIUM 138 MMOL/L (135-145); TOTAL PROTEIN 5.4 GM/DL (6.4-8.2)
[2019-08-02] MEDS: KCL 20 MEQ TAB (K-DUR) PO SCH (05:16)
[2019-08-02] MEDS: MAGNESIUM 1 GM/100 ML IVPB 100 ML IV SCH (05:16)
[2019-08-02] MEDS: POTASSIUM CL 10MEQ/50ML IVPB 50 ML IV SCH (05:16)
--- NOTE | 2019-08-02 07:00 | NUR ---
REPORT RECIEVED AND ASSESSMENT COMPLETED, PT HAS NO COMPLAINTS. HE WOULD LIKE SCHEDULED PAIN MEDICATION AVAILABLE. SENSATION INTACT TO ALL EXTREMITIES. WILL MONITOR CLOSELY.
--- NOTE | 2019-08-02 07:02 | Diagnostic Imaging Report ---
INDICATION: Dyspnea. COMPARISON: 07/31/2019. FINDINGS: The lungs are clear. Heart size and vessels normal. There is no effusion or pneumothorax. IMPRESSION: Negative. Dictated by: Dictated on workstation # [id number]
[2019-08-02] MEDS: LACTATED RINGERS 1,000 ML IV SCH ×2 (08:06→23:23)
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
[2019-08-02] MEDS ORDERED: LACTATED RINGERS 1,000 ML IV PRN (10:45)
--- NOTE | 2019-08-02 10:54 | Occ Therapy Progress Note ---
Therapy Progress Note Discussed pt plan of care with RN who states pt will be going to surgery today. Will hold therapy today and continue to follow. MARTINE MENSAH OT Aug 02, 2019 10:54 POS
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
--- NOTE | 2019-08-02 11:48 | Physical Therapy Daily Note ---
PT Daily Note-Current Subjective pt in bed pre-tx. pt agrees to bed exercises today but refuses out of bed activity due to surgical procedure this afternoon. Pt will only be seen once today secondary to his procedure scheduled for this afternoon. pt reports pain 5/10 in his L thigh and calf. Appearance pt in bed post-tx with family in the room, pt with call light, room phone, tray table in reach and all needs met at this time. pt had radiographs captured during this session. Mental Status Patient Orientation: Person, Place, Time, Situation Attachments: Powers Catheter, IV Transfers SCALE: Activities may be completed with or without assistive devices. 5-Qftsvdndzq-zovkhaq completes the activity by him/herself with no assistance from a helper. 5-Set-up or Clean-up Assistance-helper sets up or cleans up; patient completes activity. Paulina assists only prior to or following the activity. 4-Supervision or Touching Assistance-helper provides verbal cues and/or touching/steadying and/or contact guard assistance as patient completes activity. Assistance may be provided throughout the activity or intermittently. 3-Partial/Moderate Assistance-helper does LESS THAN HALF the effort. Paulina lifts, holds or supports trunk or limbs, but provides less than half the effort. 2-Substantial/Maximal Assistance-helper does MORE THAN HALF the effort. Paulina lifts or holds trunk or limbs and provides more than half the effort. 8-Bhmbtncmm-dyqarh does ALL the effort. Patient does none of the effort to compl ete the activity. Or, the assistance of 2 or more helpers is required for the patient to complete the activity. If activity was not attempted, code reason: 7-Patient Refused. 9-Not Applicable-not attempted and the patient did not perform the activity before the current illness, exacerbation or injury. 10-Not Attempted due to Environmental Limitations-(lack of equipment, weather restraints, etc.). 88-Not Attempted due to Medical Conditions or Safety Concerns. Weight Bearing Right Lower Extremity: Right Full Weight Bearing Left Lower Extremity: Left Partial Weight Bearing Exercises Supine Ex: Ankle pumps, Quad Set, Heel Slides, Short Arc Quads, Straight leg raise (AAROM), Hip abd/add Treatments Pt performed functional LE strengthening exercises in bed this morning. Assessment Current Status: Fair Progress Pt is increasing functional mobility of the LLE and pain free motion with AAROM this session. PT Mcfp Goals Mcfp Goals PT Rough Rib Grader Goals Time Frame: Aug 07, 2019 Sit to Lying (QC): 4 (SBA) Lying-Sitting on Side/Bed(QC): 4 (SBA) Sit to Stand (QC): 4 (SBA) Roll Left to Right (QC): 6 Chair/Pwz-jw-Argtm Xfer(QC): 4 (SBA) Distance: 20' Walk 10 feet (QC): 4 (CGA) Gait Assistive Device: Walker Platform PT Plan Problem List Problem List: Activity Tolerance, Functional Strength, Safety, Balance, Gait, Transfer, Bed Mobility, ROM Treatment/Plan Treatment Plan: Continue Plan of Care Treatment Plan: Bed Mobility, Education, Functional Activity Adonis, Functional Strength, Gait, Safety, Therapeutic Exercise, Transfers Treatment Duration: Aug 07, 2019 Frequency: 11 times per week Estimated Hrs Per Day: .25 hour per day Patient and/or Family Agrees t: Yes Safety Risks/Education Patient Education: Correct Positioning, Safety Issues Teaching Recipient: Patient Teaching Methods: Demonstration, Discussion Response to Teaching: Return Demonstration, Reinforcement Needed Time/GCodes Time In: 1055 Time Out: 1109 Total Billed Treatment Time: 14 Total Billed Treatment 1 visit EX 14' MARSHALL LONG PT Aug 02, 2019 11:48 POS
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
--- NOTE | 2019-08-02 15:00 | NUR ---
PT TO OR WITH SURGICAL STAFF VIA BED.
[2019-08-02] MEDS: LACTATED RINGERS 1,000 ML IV PRN ×2 (15:05→15:53)
[2019-08-02] MEDS ORDERED: BUP/EPI 0.5% 1:200,000 (SENSORCAINE) 30 ML VIAL ONE (15:21)
[2019-08-02] MEDS ORDERED: MIDAZOLAM 2 MG/2 ML (VERSED) VIAL ONE (15:24)
[2019-08-02] MEDS ORDERED: fentaNYL INJECTION 100 MCG/2 ML AMP ONE ×2 (15:26→15:39)
[2019-08-02] MEDS ORDERED: DEXAMETHASONE 10 MG/ML (DECADRON) 1 ML VIAL ONE (15:29)
[2019-08-02] MEDS ORDERED: SEVOFLURANE (ULTANE) 15 ML INHAL SOLN ONE ×5 (15:29→16:33)
[2019-08-02] MEDS ORDERED: proPOfol 200 MG/20 ML (DIPRIVAN) VIAL IV ONE (15:29)
[2019-08-02] MEDS ORDERED: GLYCOPYRROLATE 0.2 MG/ML (ROBINUL) 2 ML VIAL ONE (15:29)
[2019-08-02] MEDS ORDERED: ONDANSETRON 4 MG/2 ML (SDV) Z0FRAN ONE (15:29)
[2019-08-02] MEDS ORDERED: ROCURONIUM 10 MG/ML 5 ML SYRINGE IV ONE (15:29)
[2019-08-02] MEDS ORDERED: LIDOCAINE PF 2% 5 ML (XYLOCAINE) VIAL ONE (15:29)
[2019-08-02] MEDS ORDERED: NEOSTIGMINE 3 MG/3 ML VIAL ONE (15:29)
[2019-08-02] MEDS ORDERED: ceFAZolin INJECTION 2,000 MG ONE (15:54)
[2019-08-02] MEDS ORDERED: PHENYLEPHRINE 100 MCG/ML 10 ML (ANESTHESIA) SYR ONE (15:56)
[2019-08-02] MEDS ORDERED: morphine INJ 10 MG/ML 1ML (SYR OR VIAL) ONE (16:35)
[2019-08-02] MEDS ORDERED: ONDANSETRON 4 MG/2 ML (SDV) Z0FRAN IVP PRN (16:45)
[2019-08-02] MEDS ORDERED: morphine INJ 10 MG/ML 1ML (SYR OR VIAL) IVP ONE (16:45)
[2019-08-02] MEDS ORDERED: HYDROmorphone 2 MG/ML VIAL (DILAUDID) IV ONE (16:45)
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
[2019-08-02] MEDS: HYDROcodone/APAP 5 MG/325 MG (LORTAB) TAB PO PRN (20:36)
[2019-08-02] MEDS: lisINopril 20 MG (PRINIVIL) TABLET PO SCH (20:36)
[2019-08-03] VITALS (14 sets, daily range): BP systolic 107–136; BP diastolic 61–89
[2019-08-03] MEDS: HYDROcodone/APAP 5 MG/325 MG (LORTAB) TAB PO PRN ×5 (00:32→19:59)
[2019-08-03 02:54] LABS: BASOPHILS % (AUTO) 0 % (0-10); EOSINOPHILS % (AUTO) 0 % (0-10); HEMATOCRIT 24 % (40-54); HEMOGLOBIN 8.5 G/DL (13.3-17.7); LYMPHOCYTES # (AUTO) 0.6 X 10^3 (1.0-4.0); LYMPHOCYTES % (AUTO) 7 % (12-44); MEAN CORPUSCULAR HEMOGLOBIN 30 PG (25-34); MEAN CORPUSCULAR HGB CONC 35 G/DL (32-36); MEAN CORPUSCULAR VOLUME 84 FL (80-99); MEAN PLATELET VOLUME 10.6 FL (7.4-10.4); MONOCYTES # (AUTO) 0.4 X 10^3 (0.0-1.0); MONOCYTES % (AUTO) 5 % (0-12); NEUTROPHILS # (AUTO) 7.2 X 10^3 (1.8-7.8); NEUTROPHILS % (AUTO) 88 % (42-75); PLATELET COUNT 237 10^3/uL (130-400); RED CELL DISTRIBUTION WIDTH 12.5 % (10.0-14.5); WHITE BLOOD COUNT 8.2 10^3/uL (4.3-11.0)
[2019-08-03 03:16] LABS: BUN/CREATININE RATIO 22; CALCIUM 8.5 MG/DL (8.5-10.1); CARBON DIOXIDE 20 MMOL/L (21-32); CHLORIDE 105 MMOL/L (98-107); CREATININE SERUM 0.76 MG/DL (0.60-1.30); GFR ESTIMATED > 60; GLUCOSE 189 MG/DL (70-105); MAGNESIUM 2.2 MG/DL (1.6-2.4); PHOSPHORUS 3.1 MG/DL (2.3-4.7); POTASSIUM 4.2 MMOL/L (3.6-5.0); SODIUM 137 MMOL/L (135-145)
[2019-08-03] MEDS: KCL 20 MEQ TAB (K-DUR) PO SCH (05:12)
[2019-08-03] MEDS: POTASSIUM CL 10MEQ/50ML IVPB 50 ML IV SCH (05:12)
[2019-08-03] MEDS: MAGNESIUM 1 GM/100 ML IVPB 100 ML IV SCH (05:12)
--- NOTE | 2019-08-03 06:55 | Diagnostic Imaging Report ---
INDICATION: Shortness of breath COMPARISON: 07/30/2019 FINDINGS: Frontal view of the chest demonstrates clear lungs bilaterally. The heart size is normal. There is no pneumothorax. Osseous structures are normal. IMPRESSION: No acute findings. Normal chest. Dictated by: Dictated on workstation # [id number]
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
--- NOTE | 2019-08-03 09:19 | Progress Note - Ortho ---
Progress Note Subjective Date of Exam 08/03/19 Chief Complaint POD#4 I am rodding left femur HPI/Events since last exam Mr Fuller is doing better. He states he's having less pain in both wrists. He states his ankle feels better as well. Still pain in left thigh. Review of Systems Reviewed and no additions or changes Allergies: Coded Allergies: cyclobenzaprine (Verified Allergy, Unknown, 07/30/19) Home Meds Reported Medications Baclofen (Baclofen) 10 Mg Tablet, 10 MG PO TID PRN for MUSCLE SPASMS, TAB 07/31/19 Oxycodone HCl/Acetaminophen (Percocet 5-325 mg Tablet) 1 Each Tablet, 1 TAB PO Q6H PRN for PAIN-MODERATE, TAB 07/31/19 [place] 3 Polyunsat Fatty Acids (Fish Oil 1,000 mg Capsule) 1,000 Mg Cap, 1000 MG PO HS, CAP 07/31/19 Loratadine (Claritin) 10 Mg Tablet, 10 MG PO HS, TAB 07/31/19 Fenofibric Acid (Choline) (Fenofibric Acid) 135 Mg Capsule.dr, 135 MG PO HS, CAP 07/31/19 Lisinopril (Lisinopril) 20 Mg Tablet, 20 MG PO HS, TAB 07/31/19 Discontinued Reported Medications Baclofen (Baclofen) 20 Mg Tablet, 20 MG PO TID, TAB 07/31/19 Objective Exam Constitutional: [] HEENT: [] Neck: [] Cardiovascular: [] Respiratory: [] Gastrointestinal: [] Genitourinary: [] Skin: [] Back/Spine: [] Extremities: [] Right upper extremity has mild swelling and bruising in the wrist and distal forearm but normal sensation to the fingers and thumb with good cap refill. Good motion and strength with less pain. Left upper extremitycast is intact. No swelling in the fingers. Normal sensation with good capillary refill and no pain with motion of the fingers or thumb Left lower extremitydressings are intact. Mild swelling left ankle with mild pain with palpation. No instability. Normal sensation. No weakness with dorsiflexion or plantarflexion foot-ankle Neurologic: [] Psychiatric: [] Hematologic/lymphatic/immunologic: [] Vital Signs Vital Signs Date Time Temp Pulse Resp B/P (MAP) Pulse Ox O2 Delivery O2 Flow Rate FiO2 08/03/19 08:00 72 11 122/74 (90) 100 Room Air 08/03/19 07:00 79 08/03/19 07:00 84 15 115/69 (84) 99 Room Air 08/03/19 06:00 80 14 107/64 (78) 91 Room Air 08/03/19 05:00 83 17 117/68 (84) 97 Room Air 08/03/19 04:00 Room Air 08/03/19 04:00 37.3 08/03/19 04:00 97 18 124/89 (101) 90 Room Air 08/03/19 03:00 81 17 110/67 (81) 97 Room Air 08/03/19 02:00 84 16 109/65 (80) 95 Room Air 08/03/19 01:00 89 08/03/19 01:00 86 19 117/65 (82) 97 Room Air 08/03/19 00:00 37.5 08/03/19 00:00 103 19 136/61 (86) 97 Room Air 08/03/19 00:00 Room Air 08/02/19 23:00 91 19 121/66 (84) 97 Room Air 08/02/19 22:00 98 20 112/64 (80) 98 Room Air 08/02/19 21:00 89 19 138/82 (100) 97 Room Air 08/02/19 20:00 92 22 118/63 (81) 98 Room Air 08/02/19 20:00 Room Air 08/02/19 20:00 37.5 08/02/19 19:00 104 08/02/19 19:00 104 19 132/79 (96) 98 Room Air 08/02/19 18:00 86 19 99/66 (77) 97 Room Air 08/02/19 17:50 Room Air 08/02/19 17:50 36.7 18 117/67 (84) 98 Room Air 08/02/19 17:41 Room Air 08/02/19 17:40 18 120/65 (83) 98 Room Air 08/02/19 17:30 18 117/73 (88) 100 Room Air 08/02/19 17:30 87 21 124/75 (91) 100 Room Air 08/02/19 17:28 OxyMask 2 08/02/19 17:20 18 124/75 (91) 100 OxyMask 4 08/02/19 17:15 OxyMask 4 08/02/19 17:10 Room Air 08/02/19 17:10 18 123/68 (86) 100 OxyMask 6 08/02/19 17:02 36.9 15 115/69 (84) 100 OxyMask 6 08/02/19 17:02 OxyMask 6 08/02/19 14:00 87 13 124/71 (88) 98 Room Air 08/02/19 13:00 83 08/02/19 13:00 87 15 123/78 (93) 98 Room Air 08/02/19 12:32 Room Air 08/02/19 12:00 86 15 135/90 (105) 99 Room Air 08/02/19 12:00 36.9 08/02/19 11:00 87 16 124/77 (93) 99 Room Air 08/02/19 10:00 85 21 110/82 (91) 99 Room Air I & O 08/03/19 07:00 Intake Total 4270 ml Output Total 4650 ml Balance -380 ml Lab Results Laboratory Tests 08/03/19 02:50: White Blood Count 8.2, Red Blood Count 2.86L, Hemoglobin 8.5L, Hematocrit 24L, Mean Corpuscular Volume 84, Mean Corpuscular Hemoglobin 30, Mean Corpuscular Hemoglobin Concent 35, Red Cell Distribution Width 12.5, Platelet Count 237, Mean Platelet Volume 10.6H, Neutrophils (%) (Auto) 88H, Lymphocytes (%) (Auto) 7L, Monocytes (%) (Auto) 5, Eosinophils (%) (Auto) 0, Basophils (%) (Auto) 0, Neutrophils # (Auto) 7.2, Lymphocytes # (Auto) 0.6L, Monocytes # (Auto) 0.4, Eosinophils # (Auto) 0.0, Basophils # (Auto) 0.0, Sodium Level 137, Potassium Level 4.2, Chloride Level 105, Carbon Dioxide Level 20L, Anion Gap 12, Blood Urea Nitrogen 17, Creatinine 0.76, Estimat Glomerular Filtration Rate > 60, BUN/Creatinine Ratio 22, Glucose Level 189H, Calcium Level 8.5, Phosphorus Level 3.1, Magnesium Level 2.2 Assessment and Plan Assessment Doing well postop day number 4 Problem List No changes Plan Still awaiting splint for her right wrist. Continue out of bed as tolerated with partial weight on the left and full weight on the right. Rehabilitation limited to 3 extremities involved Final Diagonsis Nondisplaced fracture left distal radius ulnar styloid Fracture mid shaft left femur status post IM rodding Level of the visit: Level 3 Clinical Quality Measures DVT/VTE Risk/Contraindication: Risk Factor Score Per Nursin RFS Level Per Nursing on Admit: 4+=Very High MAGALI LI MD Aug 03, 2019 09:19 POS
--- NOTE | 2019-08-03 11:46 | Physical Therapy Daily Note ---
PT Daily Note-Current Subjective Pt is agreeable with the plan to get up and ambulate. Mental Status Patient Orientation: Person, Place, Time, Situation Transfers SCALE: Activities may be completed with or without assistive devices. 1-Cxttdorcad-frmhuph completes the activity by him/herself with no assistance from a helper. 5-Set-up or Clean-up Assistance-helper sets up or cleans up; patient completes activity. [place] assists only prior to or following the activity. 4-Supervision or Touching Assistance-helper provides verbal cues and/or touching/steadying and/or contact guard assistance as patient completes activity. Assistance may be provided throughout the activity or intermittently. 3-Partial/Moderate Assistance-helper does LESS THAN HALF the effort. [place] lifts, holds or supports trunk or limbs, but provides less than half the effort. 2-Substantial/Maximal Assistance-helper does MORE THAN HALF the effort. [place] lifts or holds trunk or limbs and provides more than half the effort. 6-Yandvhime-ztqmyj does ALL the effort. Patient does none of the effort to complete the activity. Or, the assistance of 2 or more helpers is required for the patient to complete the activity. If activity was not attempted, code reason: 7-Patient Refused. 9-Not Applicable-not attempted and the patient did not perform the activity before the current illness, exacerbation or injury. 10-Not Attempted due to Environmental Limitations-(lack of equipment, weather restraints, etc.). 88-Not Attempted due to Medical Conditions or Safety Concerns. Transfers (B, C, W/C): 5 Roll Left to Right (QC): 5 Sit to Lying (QC): 5 Sit to Stand (QC): 5 Chair/Kde-rw-Fyfnb Xfer(QC): 5 Bed to/from Chair: 5 Weight Bearing Right Lower Extremity: Right Full Weight Bearing Left Lower Extremity: Left Partial Weight Bearing Gait Training Does the Patient Walk?: Yes Gait: 3 Distance: 30ft Gait Assistive Device: Walker Platform Wheelchair Training Does the Pt Use a Wheelchair?: No Assessment Pt was able to perform sit to stand pivot to the bedside chair. Then he was able to perform sit to stand with SBA and ambulated 30ft with the platform walker. PT Video Editing Internship Goals Video Editing Internship Goals PT Prison Goals Time Frame: Aug 07, 2019 Sit to Lying (QC): 4 (SBA) Lying-Sitting on Side/Bed(QC): 4 (SBA) Sit to Stand (QC): 4 (SBA) Roll Left to Right (QC): 6 Chair/Mei-pu-Kzapn Xfer(QC): 4 (SBA) Distance: 20' Walk 10 feet (QC): 4 (CGA) Gait Assistive Device: Walker Platform PT Plan Treatment/Plan Treatment Plan: Continue Plan of Care Treatment Plan: Bed Mobility, Education, Functional Activity Adonis, Functional Strength, Gait, Safety, Therapeutic Exercise, Transfers Treatment Duration: Aug 07, 2019 Frequency: 11 times per week Estimated Hrs Per Day: .25 hour per day Patient and/or Family Agrees t: Yes Time/GCodes Time In: 1048 Time Out: 1103 Total Billed Treatment Time: 15 Total Billed Treatment 1, gt 15 ORI WU PT Aug 03, 2019 11:46 POS
--- NOTE | 2019-08-03 11:47 | NUR ---
Patient transferred to 415 per RECLINER accompanied by ICU staff. Patient and family notified and understand transfer. Personal belongings with patient. Report given to THIS RN PER SENIOR HR GENERALIST.
--- NOTE | 2019-08-03 12:35 | NUR ---
PT TO ROOM 415 VIA W/C ACCOMPANIED BY THIS RN AT 1045 REPORT GIVEN TO CHIP AYALA.
[2019-08-03] MEDS: lisINopril 20 MG (PRINIVIL) TABLET PO SCH (20:46)
[2019-08-04] VITALS: BP 122/74
[2019-08-04] MEDS: HYDROcodone/APAP 5 MG/325 MG (LORTAB) TAB PO PRN ×5 (00:08→19:48)
[2019-08-04 04:00] VITALS: BP 147/83
[2019-08-04 08:00] VITALS: BP 136/87
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
--- NOTE | 2019-08-04 11:06 | NUR ---
PT IS SITTING UP IN BED. FAMILY AT BEDSIDE. PT STATES HE HAS PAIN BUT IT IS CONTROLLED. HE STATES HE IS ONLY TAKING THE HYDROCODONE. DENIES ANY NEEDS AT THIS TIME.
[2019-08-04 12:00] VITALS: BP 157/91
--- NOTE | 2019-08-04 13:53 | Anesthesia-General Post-Op ---
General Patient Condition Mental Status/LOC: Same as Preop Cardiovascular: Satisfactory Nausea/Vomiting: Absent Respiratory: Satisfactory Pain: Controlled Complications: Absent Post Op Complications Complications None Follow Up Care/Instructions Patient Instructions None needed. Anesthesia/Patient Condition Patient Condition Patient is doing well, no complaints, stable vital signs, no apparent adverse anesthesia problems. No complications reported per nursing. KANIKA HARMAN CRNA Aug 04, 2019 13:53 POS
[2019-08-04 16:15] VITALS: BP 128/69
[2019-08-04 20:00] VITALS: BP 143/84
[2019-08-04] MEDS: lisINopril 20 MG (PRINIVIL) TABLET PO SCH (21:06)
[2019-08-05 00:20] VITALS: BP 147/79
[2019-08-05] MEDS: HYDROcodone/APAP 5 MG/325 MG (LORTAB) TAB PO PRN ×5 (01:55→20:17)
[2019-08-05 04:00] VITALS: BP 147/88
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
[2019-08-05 07:51] LABS: HEMOGLOBIN 9.2 G/DL (13.3-17.7)
[2019-08-05 08:00] VITALS: BP 134/76
--- NOTE | 2019-08-05 09:50 | Physical Therapy Daily Note ---
PT Daily Note-Current Subjective Patient and family agree to PT at this time. Patient reports the furthest he has walked since being hospitalized is to the bathroom or doorway. Pain Numeric Pain Scale: 5-Moderate Pain Location: Left Location Body Site: Knee Pain Description: Acute Mental Status Patient Orientation: Person, Place, Time, Situation Transfers SCALE: Activities may be completed with or without assistive devices. 3-Spvlcicibc-ywnwozn completes the activity by him/herself with no assistance from a helper. 5-Set-up or Clean-up Assistance-helper sets up or cleans up; patient completes activity. [place] assists only prior to or following the activity. 4-Supervision or Touching Assistance-helper provides verbal cues and/or touching/steadying and/or contact guard assistance as patient completes activity. Assistance may be provided throughout the activity or intermittently. 3-Partial/Moderate Assistance-helper does LESS THAN HALF the effort. [place] lifts, holds or supports trunk or limbs, but provides less than half the effort. 2-Substantial/Maximal Assistance-helper does MORE THAN HALF the effort. [place] lifts or holds trunk or limbs and provides more than half the effort. 4-Zpikitujg-izelsq does ALL the effort. Patient does none of the effort to complete the activity. Or, the assistance of 2 or more helpers is required for the patient to complete the activity. If activity was not attempted, code reason: 7-Patient Refused. 9-Not Applicable-not attempted and the patient did not perform the activity before the current illness, exacerbation or injury. 10-Not Attempted due to Environmental Limitations-(lack of equipment, weather restraints, etc.). 88-Not Attempted due to Medical Conditions or Safety Concerns. Transfers (B, C, W/C): 5 Roll Left to Right (QC): 6 Sit to Stand (QC): 5 (elevated bed height) Weight Bearing Right Lower Extremity: Right Full Weight Bearing Left Lower Extremity: Left Partial Weight Bearing Gait Training Does the Patient Walk?: Yes Gait: 5 Distance: 225' Walk 10 feet (QC): 5 Walk 50 ft with 2 Turns(QC): 5 Walk 150 ft (QC): 5 Gait Assistive Device: Walker Platform (bilateral) PWB left LE Exercises Supine Ex: Ankle pumps, Heel Slides, Straight leg raise, Hip abd/add Supine Reps: 10 Seated Therapy Exercises: Long arc quads Seated Reps: 10 Assessment Patient required assistance to complete LLE exercises but was able to complete bed mobility independently. Patient stood from elevated bed with use of platform walker. Patient ambulated with platform walker 225' PWB with rest breaks. Edwin cox reported fatigue at conclusion of treatment and seated in chair with LE down to continue exercising. Patient states he won't perform exercises unless someone is with him and tells him to do to. This PT educated patient on performing exercises and bed mobility by self to improve strength and LOF. Patient continued to voice he would not do that. PT Shelter Goals Supervisor Film Processing Goals PT Supervisor Film Processing Goals Time Frame: Aug 07, 2019 Sit to Lying (QC): 4 (SBA) Lying-Sitting on Side/Bed(QC): 4 (SBA) Sit to Stand (QC): 4 (SBA) Roll Left to Right (QC): 6 Chair/Kcx-qw-Qtpyl Xfer(QC): 4 (SBA) Distance: 20' Walk 10 feet (QC): 4 (CGA) Gait Assistive Device: Walker Platform PT Plan Treatment/Plan Treatment Plan: Continue Plan of Care Treatment Plan: Bed Mobility, Education, Functional Activity Adonis, Functional Strength, Gait, Safety, Therapeutic Exercise, Transfers Treatment Duration: Aug 07, 2019 Frequency: 11 times per week Estimated Hrs Per Day: .25 hour per day Patient and/or Family Agrees t: Yes Safety Risks/Education Patient Education: Gait Training, Disease Process Teaching Recipient: Patient Teaching Methods: Discussion Response to Teaching: Verbalize Understanding, Return Demonstration Time/GCodes Time In: 820 Time Out: 843 Total Billed Treatment Time: 23 Total Billed Treatment 1 visit EX 10min FA 13min TRACE MICHAELS PT Aug 05, 2019 09:50 POS
--- NOTE | 2019-08-05 10:05 | NUR ---
TIMELINE NOTE BELOW: 08/05/19 AT 1000: PT PULLED IV OUT. 08/05/19 AT 1004: THIS RN CALLED DR. RUIZ TO ASK ABOUT NEW IV START. DR. RUIZ STATED "LEAVE IT OUT." NEW ORDERS OBTAINED, SEE ORDER HISTORY.
[2019-08-05] MEDS: ENOXAPARIN 40 MG/0.4 ML (LOVENOX) SYR SC SCH (10:12)
[2019-08-05] MEDS ORDERED: ONDANSETRON 4 MG (ZOFRAN) ORAL DISSOLVE TAB PO PRN (10:15)
--- NOTE | 2019-08-05 10:52 | NUR ---
TUNDE/FELIPA spoke with the patient upon the patient's request. The patient was seeking information regarding voting. TUNDE/FELIPA spoke to the [facility] to obtain information for the patient. The worker Rebekah called back and stated that she would fax forms over for the patient. TUNDE/FELIPA gave the patient the forms and information such as address, phone number, and office hours. Will continue to follow if forms need faxed back to the office. Addendum: 08/05/19 at 1212 by LADONNA WONG reviewed / approved
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
--- NOTE | 2019-08-05 11:49 | Occupational Ther Daily Note ---
OT Current Status-Daily Note Subjective Pt alert and willing to participate with OT services this date, however he reported that he was fatigued from PT session earlier this morning. Pt declined participating in ADLs and also declined participating in functional mobility training. ADL-Treatment Therapy Code Descriptions/Definitions Functional [place] Measure: 0=Not Assessed/NA 4=Minimal Assistance 1=Total Assistance 5=Supervision or Setup 2=Maximal Assistance 6=Modified [place] 3=Moderate Assistance 7=Complete IndependenceSCALE: Activities may be completed with or without assistive devices. 6-Ciakpramum-eitnazh completes the activity by him/herself with no assistance from a helper. 5-Set-up or Clean-up Assistance-helper sets up or cleans up; patient completes activity. [place] assists only prior to or following the activity. 4-Supervision or Touching Assistance-helper provides verbal cues and/or touching/steadying and/or contact guard assistance as patient completes activity. Assistance may be provided throughout the activity or intermittently. 3-Partial/Moderate Assistance-helper does LESS THAN HALF the effort. [place] lifts, holds or supports trunk or limbs, but provides less than half the effort. 2-Substantial/Maximal Assistance-helper does MORE THAN HALF the effort. [place] lifts or holds trunk or limbs and provides more than half the effort. 1-Xoltqfpdb-elzspu does ALL the effort. Patient does none of the effort to complete the activity. Or, the assistance of 2 or more helpers is required for the patient to complete the activity. If activity was not attempted, code reason: 7-Patient Refused. 9-Not Applicable-not attempted and the patient did not perform the activity before the current illness, exacerbation or injury. 10-Not Attempted due to Environmental Limitations-(lack of equipment, weather restraints, etc.). 88-Not Attempted due to Medical Conditions or Safety Concerns. Other Treatment Pt participated in bed mobility training, as well as activities while seated unsupported at EOB. Pt required [place] for supine to sit, and SBA to maintain unsupported sitting at EOB. Pt participated in functional sit to stand transfer training from EOB to standing with platform walker. Pt required CGA and verbal cues for PWB through LLE, and NWB through wrists. Pt able to maintain precautions with verbal cues. Pt able to perform sitting to supine with [place] to manage affected LLE. Pt educated on positioning in bed, as well as ROM exercises to complete through BUE's later on in the day when he is feeling less fatigued. Pt positioned properly in bed, and call light was within reach. OT Short Term Goals Short Term Goals Time Frame: Aug 07, 2019 Eating(FIM): 6 Grooming(FIM): 4 Bathing(FIM): 4 Upper Body Dressing(FIM): 4 Lower Body Dressing(FIM): 3 Toileting(FIM): 4 Transfers (B,C,W/C) (FIM): 4 Toilet/Commode Transfer(FIM): 4 Additional Short Term Goals: 1-Demonstrate ADL Tasks, 2-Verbalize Understanding, 3-ImproveStrength/Adonis 1=Demonstrate adherence to instructed precautions during ADL tasks. 2=Patient will verbalize/demonstrate understanding of assistive devices/modifications for ADL. 3=Patient will improve strength/tolerance for activity to enable patient to perform ADL's. OT Instrumentation Engineer Goals Alf Goals Time Frame: Aug 14, 2019 Eating (QC): 6 Oral Hygiene (QC): 6 Shower/Bathe Self (QC): 6 Upper Body Dressing (QC): 6 Lower Body Dressing (QC): 6 On/Off Footwear (QC): 6 Toileting Hygiene (QC): 6 Toilet/Commode Transfer (QC): 6 Additional Goals: 1-Demonstrate ADL Tasks, 2-Verbalize Understanding, 3- ImproveStrength/Adonis 1=Demonstrate adherence to instructed precautions during ADL tasks. 2=Patient will verbalize/demonstrate understanding of assistive devices/modifications for ADL. 3=Patient will improve strength/tolerance for activity to enable patient to perform ADL's. OT Education/Plan Discharge Recommendations Plan/Recommendations: Continue POC Treatment Plan/Plan of Care Patient would benefit from OT for education, treatment and training to promote independence in ADL's, mobility, safety and/or upper extremity function for ADL's. Plan of Care: ADL Retraining, Functional Mobility, UE Funct Exercise/Act Treatment Duration: Aug 14, 2019 Frequency: 5 times per week Estimated Hrs Per Day: .5 hour per day Agreement: Yes Rehab Potential: Good Time/GCodes Start Time: 11:23 Stop Time: 11:48 Total Time Billed (hr/min): 25 Billed Treatment Time 1, TA2 SHADY MORRIS OT Aug 05, 2019 11:48 POS
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
--- NOTE | 2019-08-05 14:04 | NUR ---
provided prayer and Communion.
--- NOTE | 2019-08-05 14:10 | NUR ---
REPORT GIVEN TO JAMIE BARRERA.
--- NOTE | 2019-08-05 14:27 | NUR ---
IRF Evaluation Chart review complete and findings discussed with Dr. Zaman - patient accepted. Prior authorization process initiated and clinical information submitted to [facility]. Will continue to follow. Thank you for this referral.
--- NOTE | 2019-08-05 15:15 | Physical Therapy Daily Note ---
PT Daily Note-Current Subjective Patient agrees to PT at this time. Patient reports he sat in his chair until noon this morning before returning to bed. Pain Numeric Pain Scale: 5-Moderate Pain Location: Left Location Body Site: Thigh Pain Description: Ache Mental Status Patient Orientation: Person, Place, Time, Situation Transfers SCALE: Activities may be completed with or without assistive devices. 1-Aamzfyddmh-beodbuz completes the activity by him/herself with no assistance from a helper. 5-Set-up or Clean-up Assistance-helper sets up or cleans up; patient completes activity. [place] assists only prior to or following the activity. 4-Supervision or Touching Assistance-helper provides verbal cues and/or touching/steadying and/or contact guard assistance as patient completes activity . Assistance may be provided throughout the activity or intermittently. 3-Partial/Moderate Assistance-helper does LESS THAN HALF the effort. [place] lifts, holds or supports trunk or limbs, but provides less than half the effort. 2-Substantial/Maximal Assistance-helper does MORE THAN HALF the effort. [place] lifts or holds trunk or limbs and provides more than half the effort. 3-Bacwsskzh-bgjlzc does ALL the effort. Patient does none of the effort to complete the activity. Or, the assistance of 2 or more helpers is required for the patient to complete the activity. If activity was not attempted, code reason: 7-Patient Refused. 9-Not Applicable-not attempted and the patient did not perform the activity before the current illness, exacerbation or injury. 10-Not Attempted due to Environmental Limitations-(lack of equipment, weather restraints, etc.). 88-Not Attempted due to Medical Conditions or Safety Concerns. Transfers (B, C, W/C): 6 Roll Left to Right (QC): 6 Sit to Stand (QC): 5 Weight Bearing Right Lower Extremity: Right Full Weight Bearing Left Lower Extremity: Left Partial Weight Bearing Gait Training Does the Patient Walk?: Yes Gait: 5 Distance: 225' Walk 10 feet (QC): 5 Walk 50 ft with 2 Turns(QC): 5 Gait Assistive Device: Walker Platform (Bilateral platform) Antalgic gait, PWB LLE, significant weight bearing through upper body and UE on walker, required rest breaks during ambulation and fatigued at conclusion Exercises Seated Therapy Exercises: Long arc quads Seated Reps: 8 Assessment Patient performed all bed mobility independently and was able to stand from elevated EOB with use of platform walker. Patient ambulated 225' with walker, SBA, and PWB on LLE. Patient self limited with reported fatigue and difficulty of task. Patient demonstrated improved ambulation mechanics compared to morning treatment. Patient seated in chair with LEs in dependent position at conclusion of treatment. PT Short Term Goals Short Term Goals Time Frame: Aug 05, 2019 PT Half-Way Goals Extrusion Bender Goals PT Half-Way Goals Time Frame: Aug 07, 2019 Sit to Lying (QC): 4 (SBA) Lying-Sitting on Side/Bed(QC): 4 (SBA) Sit to Stand (QC): 4 (SBA) Roll Left to Right (QC): 6 Chair/Tkn-mz-Zpydx Xfer(QC): 4 (SBA) Distance: 20' Walk 10 feet (QC): 4 (CGA) Gait Assistive Device: Walker Platform PT Plan Treatment/Plan Treatment Plan: Continue Plan of Care Treatment Plan: Bed Mobility, Education, Functional Activity Adonis, Functional Strength, Gait, Safety, Therapeutic Exercise, Transfers Treatment Duration: Aug 07, 2019 Frequency: 11 times per week Estimated Hrs Per Day: .25 hour per day Patient and/or Family Agrees t: Yes Time/GCodes Time In: 225 Time Out: 237 Total Billed Treatment Time: 12 Total Billed Treatment 1 visit FA 12min TRACE MICHAELS PT Aug 05, 2019 15:15 POS
[2019-08-05 15:50] VITALS: BP 127/75
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
[2019-08-05] MEDS: lisINopril 20 MG (PRINIVIL) TABLET PO SCH (20:16)
[2019-08-06] VITALS: BP 141/81
[2019-08-06] MEDS: HYDROcodone/APAP 5 MG/325 MG (LORTAB) TAB PO PRN ×3 (01:01→08:57)
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
[2019-08-06 08:00] VITALS: BP 125/81
[2019-08-06] MEDS: ENOXAPARIN 40 MG/0.4 ML (LOVENOX) SYR SC SCH (08:40)
[2019-08-06] MEDS ORDERED: NORM2DIS3 IV (09:13)
[2019-08-06] MEDS ORDERED: ONDA4TAB11 PO (09:13)
[2019-08-06] MEDS ORDERED: ACHD5005 PO (09:13)
[2019-08-06] MEDS ORDERED: ENOX40DI8 SC (09:13)
--- NOTE | 2019-08-06 11:25 | Progress Note ---
SHASHANK MORAMED STUDENT 08/06/19 1124: Progress Note Pt feeling well today. Pain well controlled 02/08 during visit. Informed him his insurance approved him for rehab and patient agreed with plan to transfer to rehab unit today. Denied BRITO, chest pain, N/V constipation, diarrhea, syncope, SOB. States his work has been very accommodating setting up his short term disability. Participating in PT and ambulating with their assistance. Endorses some fatigue after bowel movements. No other concerns at this time. Accompanied by mother at bedside. JANEL BERRY DO 08/06/192020: Supervisory-Addendum Brief Verification & Attestation Participated in pt care: history, MDM, physical Personally performed: exam, history, MDM, supervision of care Care discussed with: Medical Student Procedures: n/a Results interpretation: Verified all documentation Verification and Attestation of Medical Student E/M Service A medical student performed and documented this service in my presence. I reviewed and verified all information documented by the medical student and made modifications to such information, when appropriate. I personally performed the physical exam and medical decision making. Janel Berry, Aug 06, 2019,20:21 SHASHANK MORA,MED STUDENT Aug 06, 2019 11:24 JANEL FLORES DO Aug 06, 2019 20:21 POS
== END 2019-08-06 09:44 | DRG 956 ==
LOC: EDUNIT# 15:38 → ER 15:40 → SDC 19:49 → ICU 23:21 → 4TH 08-03 11:44
PROVIDERS: ADMIT Surgery; ATTEND Surgery
PROC: 2W3DX2Z Immobilization of Left Lower Arm using Cast (ICD-10-PCS; 2019-07-30)
PROC: 0QS936Z Reposition Left Femoral Shaft with Intramedullary Internal Fixation Device, Percutaneous Approach (ICD-10-PCS; principal; 2019-07-30 20:30)
PROC: 0DJW4ZZ Inspection of Peritoneum, Percutaneous Endoscopic Approach (ICD-10-PCS; 2019-08-02)
PROC: 0DJV4ZZ Inspection of Mesentery, Percutaneous Endoscopic Approach (ICD-10-PCS; 2019-08-02)
PROC: 0WJP4ZZ Inspection of Gastrointestinal Tract, Percutaneous Endoscopic Approach (ICD-10-PCS; 2019-08-02)
PROC: 0WJF4ZZ Inspection of Abdominal Wall, Percutaneous Endoscopic Approach (ICD-10-PCS; 2019-08-02)
PROC: 0WJJ4ZZ Inspection of Pelvic Cavity, Percutaneous Endoscopic Approach (ICD-10-PCS; 2019-08-02)
DX: S72.352A Displaced comminuted fracture of shaft of left femur, initial encounter for closed fracture (principal); S52.515A Nondisplaced fracture of left radial styloid process, initial encounter for closed fracture; S52.612A Displaced fracture of left ulna styloid process, initial encounter for closed fracture; S36.892A Contusion of other intra-abdominal organs, initial encounter; S36.899A Unspecified injury of other intra-abdominal organs, initial encounter; Z23 Encounter for immunization; R04.0 Epistaxis; S36.893A Laceration of other intra-abdominal organs, initial encounter; S50.02XA Contusion of left elbow, initial encounter; S63.501A Unspecified sprain of right wrist, initial encounter; S80.01XA Contusion of right knee, initial encounter; S80.02XA Contusion of left knee, initial encounter; S60.511A Abrasion of right hand, initial encounter; S60.512A Abrasion of left hand, initial encounter; S81.812A Laceration without foreign body, left lower leg, initial encounter; S50.312A Abrasion of left elbow, initial encounter; S93.402A Sprain of unspecified ligament of left ankle, initial encounter; S02.2XXA Fracture of nasal bones, initial encounter for closed fracture; I10 Essential (primary) hypertension; E78.00 Pure hypercholesterolemia, unspecified; M54.40 Lumbago with sciatica, unspecified side; V43.52XA Car driver injured in collision with other type car in traffic accident, initial encounter; Y92.413 State road as the place of occurrence of the external cause
CPT/HCPCS: 36415; 51702; 70450; 71045; 71260; 72125; 72170; 73110; 73552; 73610; 74176; 74177; 80048; 80053; 80076; 80320; 81000; 83735; 84100; 85007; 85014; 85018; 85025; 85027; 86850; 86900; 86901; 86920; 90715; 93041; 94664; 96361; 96365; 96366; 96375; 96376

== ENCOUNTER 2019-08-06 08:50 | Inpatient (IN) | payer OTHER ==
[~2019-08-06] VITALS: Ht 172.7 cm; Wt 103.2 kg
[~2019-08-06 08:50] MED LIST: BACL10TA PO; BACL20TA PO; FENO135C4 PO; LISI-552 PO; LORA10TA76 PO; OMG1KC PO; OXYC1TAB87 PO
[2019-08-06] MEDS ORDERED: ENOX40DI8 SC (09:13)
[2019-08-06] MEDS ORDERED: NORM2DIS3 IV (09:13)
[2019-08-06] MEDS ORDERED: ONDA4TAB11 PO (09:13)
[2019-08-06] MEDS ORDERED: ACHD5005 PO (09:13)
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
[2019-08-06 10:19] VITALS: BP 118/78
[2019-08-06 10:30] LABS: HEMOGLOBIN 10.5 G/DL (13.3-17.7); MEAN PLATELET VOLUME 9.8 FL (7.4-10.4); RED CELL DISTRIBUTION WIDTH 14.5 % (10.0-14.5); WHITE BLOOD COUNT 16.3 10^3/uL (4.3-11.0)
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
--- NOTE | 2019-08-06 10:44 | NUR ---
Dr. Lew here to see patient.
[2019-08-06 10:53] LABS: ALANINE AMINOTRANSFERASE 32 U/L (0-55); ALBUMIN 3.9 GM/DL (3.2-4.5); ALKALINE PHOSPHATASE 44 U/L (40-136); BILIRUBIN,TOTAL 1.2 MG/DL (0.1-1.0); BUN/CREATININE RATIO 19; CARBON DIOXIDE 19 MMOL/L (21-32); CHLORIDE 102 MMOL/L (98-107); CREATININE SERUM 0.96 MG/DL (0.60-1.30); GFR ESTIMATED > 60; GLUCOSE 174 MG/DL (70-105); SODIUM 135 MMOL/L (135-145); TOTAL PROTEIN 6.7 GM/DL (6.4-8.2)
--- NOTE | 2019-08-06 10:58 | NUR ---
REVIEWED MED REC IT WAS ORDERED UPON DISCHARGE FROM 4TH FLOOR. THE FOLLOWING CHANGES WERE MADE AT THAT DISCHARGE: START TAKING: SALINE FLUSH PRN LOVENOX 40MG DAILY HYDROCODONE 5-325MG Q4H PRN ZOFRAN ODT 4MG Q6H PRN I WILL UPDATE THE MED REC BACK TO THE LIST OF MEDICATIONS REPORTED UPON ADMISSION TO ICU AT A LATER DATE FOR PROPER DISCHARGE TO HOME ORDERS. Addendum: 08/06/19 at 1355 by JACKIE KING cloth picker REMOVED THE 4 NEW PRESCRIPTIONS ORDERED AT DISCHARGE FROM 4TH FLOOR FROM THE MED REC AT THIS TIME. REVIEWED EVERYTHING ELSE IT WAS REPORTED UPON ADMISSION TO ICU.
[2019-08-06] MEDS ORDERED: ONDANSETRON 4 MG (ZOFRAN) ORAL DISSOLVE TAB PO PRN (11:30)
[2019-08-06] MEDS ORDERED: CATHETER FLUSH 10 ML SYR IV PRN (11:30)
--- NOTE | 2019-08-06 11:51 | Progress Note - Ortho ---
Progress Note Subjective Date of Exam 08/06/19 Chief Complaint POD#7 closed IM rodding left femur. HPI/Events since last exam was transferred to rehabilitation this morning. He states he's Arty walked up and down the hallway to the gym without any problems using his platform walker partial weightbearing on the left. He states her right wrist feels much better with the splint. No problems with the left wrist Review of Systems Reviewed and no additions or changes Allergies: Coded Allergies: cyclobenzaprine (Verified Allergy, Unknown, 07/30/19) Home Meds Active Scripts Ondansetron (Ondansetron Odt) 4 Mg Tab.rapdis, 4 MG PO Q6H PRN for NAUSEA/VOMITING-1ST LINE for 1 Day, TAB Prov:SHARA RUIZ DO 08/06/19 0.9 % Sodium Chloride (Normal Saline Flush) 2 Ml Syringe, 0 ML IV NEEDED PRN for LINE FLUSH for 1 Day, SYRINGE Prov:SHARA RUIZ DO 08/06/19 Hydrocodone Bit/Acetaminophen (Hydrocodone/Acetaminophen 5/325mg Tablet) 1 Tab Tab, 1 TAB PO Q4H PRN for PAIN-MODERATE for 1 Day, TAB Prov:SHARA RUIZ DO 08/06/19 Enoxaparin Sodium (Enoxaparin Sodium) 40 Mg/0.4 Ml Syringe, 40 MG SC Q24H for 1 Day, SYRINGE Prov:SHARA RUIZ DO 08/06/19 Reported Medications Baclofen (Baclofen) 10 Mg Tablet, 10 MG PO TID PRN for MUSCLE SPASMS, TAB 07/31/19 Oxycodone HCl/Acetaminophen (Percocet 5-325 mg Tablet) 1 Each Tablet, 1 TAB PO Q6H PRN for PAIN-MODERATE, TAB 07/31/19 [place] 3 Polyunsat Fatty Acids (Fish Oil 1,000 mg Capsule) 1,000 Mg Cap, 1000 MG PO HS, CAP 07/31/19 Loratadine (Claritin) 10 Mg Tablet, 10 MG PO HS, TAB 07/31/19 Fenofibric Acid (Choline) (Fenofibric Acid) 135 Mg Capsule.dr, 135 MG PO HS, CAP 07/31/19 Lisinopril (Lisinopril) 20 Mg Tablet, 20 MG PO HS, TAB 07/31/19 Discontinued Reported Medications Baclofen (Baclofen) 20 Mg Tablet, 20 MG PO TID, TAB 07/31/19 Objective Exam Constitutional: [] HEENT: [] Neck: [] Cardiovascular: [] Respiratory: [] Gastrointestinal: [] Genitourinary: [] Skin: [] Back/Spine: [] Extremities: [The right wrist is still painful and mildly swollen with bruising. But he has normal sensation of the fingers and thumb with good capillary refill bilateral. Bivalved cast is in good condition and no swelling in the fingers or thumb Left lower extremity all dressings were removed. All incisions look well without redness or drainage. His abrasions are healing well without redness or drainage. No calf tenderness negative Homans. He is neurovascularly intact to both lower extremities] Neurologic: [] Psychiatric: [] Hematologic/lymphatic/immunologic: [] Vital Signs Vital Signs Date Time Temp Pulse Resp B/P (MAP) Pulse Ox O2 Delivery O2 Flow Rate FiO2 08/06/19 10:19 35.2 109 20 118/78 99 Room Air Lab Results Laboratory Tests 08/06/19 10:25: White Blood Count 16.3H, Red Blood Count 3.57L, Hemoglobin 10.5L, Hematocrit 30L , Mean Corpuscular Volume 84, Mean Corpuscular Hemoglobin 29, Mean Corpuscular Hemoglobin Concent 35, Red Cell Distribution Width 14.5, Platelet Count 562H, Mean Platelet Volume 9.8, Sodium Level 135, Potassium Level 4.0, Chloride Level 102, Carbon Dioxide Level 19L, Anion Gap 14, Blood Urea Nitrogen 18, Creatinine 0.96, Estimat Glomerular Filtration Rate > 60, BUN/Creatinine Ratio 19, Glucose Level 174H, Calcium Level 9.0, Corrected Calcium 9.1, Total Bilirubin 1.2H, Aspartate Amino Transf (AST/SGOT) 21, Alanine Aminotransferase (ALT/SGPT) 32, Alkaline Phosphatase 44, Total Protein 6.7, Albumin 3.9 Assessment and Plan Assessment Doing well postop day number 7 Problem List Unchanged Plan His cast left wrist was incorporated with a 2 inch roll of fiberglass since his swelling is down. Continue with platform walker ambulation partial weight on the left. Dressing changes needed. Final Diagonsis Midshaft fracture left femur status post IM rodding Nondisplaced intra-articular fracture left radius and minimally displaced ulnar styloid fracture Sprain right wrist Level of the visit: Level 3 MAGALI LI MD Aug 06, 2019 11:51 POS
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
[2019-08-06] MEDS ORDERED: ACETAMINOPHEN 500 MG TAB (TYLENOL) PO SCH (12:00)
--- NOTE | 2019-08-06 12:00 | NUR ---
Pt is Rastafari. Weigher Bulker provided prayer and Communion.
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
[2019-08-06] MEDS: HYDROcodone/APAP 5 MG/325 MG (LORTAB) TAB PO PRN ×2 (13:43→19:22)
[2019-08-06 14:06] LABS: BILIRUBIN,URINE NEGATIVE (NEGATIVE); CLARITY,URINE CLEAR; COLOR,URINE YELLOW; GLUCOSE, URINE (UA) NEGATIVE (NEGATIVE); KETONES,URINE NEGATIVE (NEGATIVE); LEUKOCYTE ESTERASE ,URINE NEGATIVE (NEGATIVE); NITRITE,URINE NEGATIVE (NEGATIVE); PH,URINE 6 (5-9); PROTEIN,URINE 1+ (NEGATIVE)
[2019-08-06 14:16] LABS: AMORPHOUS SEDIMENT,UR RARE AMOR URATES /LPF; BACTERIA,URINE NEGATIVE /HPF; SQUAMOUS EPITHELIAL CELL,UR RARE /HPF; WBC,URINE RARE /HPF
--- NOTE | 2019-08-06 15:17 | Occupational Ther Daily Note ---
OT Current Status-Daily Note Subjective No c/o of pain. Pt laying in bed. Pt mother in room. Pt agrees to therapy treatment. Mental Status/Objective Patient Orientation: Person, Place, Time, Situation ADL-Treatment Therapy Code Descriptions/Definitions Functional [place] Measure: 0=Not Assessed/NA 4=Minimal Assistance 1=Total Assistance 5=Supervision or Setup 2=Maximal Assistance 6=Modified [place] 3=Moderate Assistance 7=Complete IndependenceSCALE: Activities may be completed with or without assistive devices. 7-Sxhjetwokt-virmogj completes the activity by him/herself with no assistance from a helper. 5-Set-up or Clean-up Assistance-helper sets up or cleans up; patient completes activity. [place] assists only prior to or following the activity. 4-Supervision or Touching Assistance-helper provides verbal cues and/or touching/steadying and/or contact guard assistance as patient completes activity. Assistance may be provided throughout the activity or intermittently. 3-Partial/Moderate Assistance-helper does LESS THAN HALF the effort. [place] lifts, holds or supports trunk or limbs, but provides less than half the effort. 2-Substantial/Maximal Assistance-helper does MORE THAN HALF the effort. [place] lifts or holds trunk or limbs and provides more than half the effort. 7-Jvbpqlyaa-heklwh does ALL the effort. Patient does none of the effort to complete the activity. Or, the assistance of 2 or more helpers is required for the patient to complete the activity. If activity was not attempted, code reason: 7-Patient Refused. 9-Not Applicable-not attempted and the patient did not perform the activity before the current illness, exacerbation or injury. 10-Not Attempted due to Environmental Limitations-(lack of equipment, weather restraints, etc.). 88-Not Attempted due to Medical Conditions or Safety Concerns. Oral Hygiene (QC): 6 (Pt had supplies next to recliner. Completed oral hygiene independently seated on his recliner.) Bathing Location: L Arm, R Arm, L Upper Leg, R Upper Leg, L Lower Leg (including foot), R Lower Leg (including foot), Chest, Abdomen, Perineal Area Shower/Bathe Self (QC): 3 (Pt completed sponge bath with set up only. Pt stated that he needed assistance to cleanse buttocks.) Upper Body Dressing (QC): 5 (Pt required set to complete upper body dressing.) Lower Body Dressing (QC): 3 (Pt required mod assist to stand to hike pants over hips. Pt was dependent with donning socks.) Toileting Hygiene (QC): 7 (Pt did not use the toilet.) Toilet Transfer (QC): 7 Footwear QC- 1. Will introduce pt to sock aide. Other Treatment Supine to EOB, pt required mod assist sit to stand then min A to transfer with B UE platform walker to the recliner. Pt was set for sponge bath. Pt did not use toilet at this time. Pt declined to cleanse bottom stated that " they just stephen serina it". Pt completed sponge bath seated on his recliner, OT assisted with shampooing pt hair. Pt combed hair and brushed teeth while seated. Pt donned/doffed on brace on his right hand with supervision. Pt then participated in UE fine motor/strengthening exercise to improve activity tolerance for functional tasks. Pt given therapy sponge to increase preliminary school psychologist/pinch strength and educated the important of it. Pt seated in recliner, phone/call light in reach. All needs met. Education OT Patient Education: Correct positioning, Exercise program, Instructions don/doff splint/brace, Modified ADL techniques, Progress toward Goal/Update tx plan, Purpose of tx/functional activities, Reviewed precautions, Rehab process, Safety issues, Transfer techniques, Use of adapted equipment Teaching Recipient: Patient, Family Teaching Methods: Demonstration Response to Teaching: Verbalize Understanding, Return Demonstration OT Short Term Goals Short Term Goals Upper Body Dressing(FIM): 3 Lower Body Dressing(FIM): 3 1=Demonstrate adherence to instructed precautions during ADL tasks. 2=Patient will verbalize/demonstrate understanding of assistive devices/modifications for ADL. 3=Patient will improve strength/tolerance for activity to enable patient to perform ADL's. OT Jail Goals Jail Goals Time Frame: Aug 20, 2019 Eating (QC): 6 Oral Hygiene (QC): 6 Shower/Bathe Self (QC): 5 Upper Body Dressing (QC): 6 Lower Body Dressing (QC): 6 On/Off Footwear (QC): 6 Toileting Hygiene (QC): 6 Toilet/Commode Transfer (QC): 6 Additional Goals: 1-Demonstrate ADL Tasks, 2-Verbalize Understanding, 3- ImproveStrength/Adonis 1=Demonstrate adherence to instructed precautions during ADL tasks. 2=Patient will verbalize/demonstrate understanding of assistive devices/mod ifications for ADL. 3=Patient will improve strength/tolerance for activity to enable patient to perform ADL's. OT Education/Plan Problem List/Assessment Assessment: Decreased Activ Tolerance, Decreased UE Strength, Dependent Transfers, Impaired Bed Mobility, Impaired Coordination, Impaired Funct Balance, Impaired I ADL's, Impaired Self-Care Skills, Restricted Funct UE ROM Discharge Recommendations Plan/Recommendations: Continue POC Therapy Discharge Recommendati: Post Acute OT Equpiment Recommendations-D/C: Sock Aide Treatment Plan/Plan of Care Treatment,Training & Education: Yes Patient would benefit from OT for education, treatment and training to promote independence in ADL's, mobility, safety and/or upper extremity function for ADL's. Plan of Care: ADL Retraining, Caregiver Training, Functional Mobility, Group Exercise/Act as Ind, UE Funct Exercise/Act Treatment Duration: Aug 20, 2019 Frequency: At least 5 of 7 days/Wk (IRF) Estimated Hrs Per Day: 1.5 hours per day Rehab Potential: Good Time/GCodes Start Time: 14:15 Stop Time: 15:15 Total Time Billed (hr/min): 60 Billed Treatment Time 1, ADL x 45 Minutes EX x15 Minutes MAYE WALTER Aug 06, 2019 15:17 POS
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
--- NOTE | 2019-08-06 15:55 | Diagnostic Imaging Report ---
INDICATION: Elevated white count. Comparison made with prior examination of 08/03/2019. PA and lateral views of the chest were obtained. FINDINGS: The heart size, mediastinal configuration, and pulmonary vascularity are within normal limits. There is no pleural effusion, pneumothorax, or pneumonia. The osseous structures are unremarkable. IMPRESSION: No acute cardiopulmonary abnormality. Dictated by: Dictated on workstation # [id number]
--- NOTE | 2019-08-06 16:17 | Physical Therapy Daily Note ---
PT Daily Note-Current Subjective Pt sitting in recliner visiting with mother upon arrival. Pt agrees to PT. Pain Numeric Pain Scale: 5-Moderate Pain Location: Left Location Body Site: Thigh Pain Description: Ache, Tightness Mental Status Patient Orientation: Person, Place, Time, Situation Transfers SCALE: Activities may be completed with or without assistive devices. 7-Ofeuiwvvwr-csqkvdi completes the activity by him/herself with no assistance from a helper. 5-Set-up or Clean-up Assistance-helper sets up or cleans up; patient completes a ctivity. [place] assists only prior to or following the activity. 4-Supervision or Touching Assistance-helper provides verbal cues and/or touching/steadying and/or contact guard assistance as patient completes activity. Assistance may be provided throughout the activity or intermittently. 3-Partial/Moderate Assistance-helper does LESS THAN HALF the effort. [place] lifts, holds or supports trunk or limbs, but provides less than half the effort. 2-Substantial/Maximal Assistance-helper does MORE THAN HALF the effort. [place] lifts or holds trunk or limbs and provides more than half the effort. 3-Qopzsoacj-acgbnu does ALL the effort. Patient does none of the effort to complete the activity. Or, the assistance of 2 or more helpers is required for the patient to complete the activity. If activity was not attempted, code reason: 7-Patient Refused. 9-Not Applicable-not attempted and the patient did not perform the activity before the current illness, exacerbation or injury. 10-Not Attempted due to Environmental Limitations-(lack of equipment, weather restraints, etc.). 88-Not Attempted due to Medical Conditions or Safety Concerns. Sit to Stand (QC): 4 Weight Bearing Right Lower Extremity: Right Full Weight Bearing Left Lower Extremity: Left Partial Weight Bearing Gait Training Does the Patient Walk?: Yes Gait: 4 Distance: 150' x2 Walk 10 feet (QC): 4 Walk 50 ft with 2 Turns(QC): 4 Walk 150 ft (QC): 4 Gait Persons Needed: 1 Gait Assistive Device: Walker Platform Pt walks using double platform walker & is PWB on L LE. Exercises NuStep Minutes: 10 NuStep Workload: 4 Treatments Pt transfers to standing then ambulates in hallway. Pt uses NuStep for 10m at WL 4 (pt requested). Pt then ambulates back to room to rest Supine in bed. Pt needs Min A to lift B LE into bed. Pt has all needs met, call light in hand. Assessment Current Status: Good Progress Pt is motivated to get stronger and heal to get home. PT Manager Multimedia Goals Mcc Goals PT Mcc Goals Time Frame: Aug 20, 2019 Sit to Lying (QC): 6 Lying-Sitting on Side/Bed(QC): 6 Sit to Stand (QC): 6 Roll Left to Right (QC): 6 Chair/Oru-cd-Nhugm Xfer(QC): 6 Car Transfer (QC): 6 Walk 10 feet (QC): 6 Walk 10ft-Uneven Surface(QC): 6 Walk 50ft with 2 Turns (QC): 6 Walk 150 ft (QC): 6 Gait Assistive Device: FWW ( with platform) 1 Step (curb) (QC): 6 4 Steps (QC): 6 12 Steps (QC): 6 PT Plan Problem List Problem List: Activity Tolerance Treatment/Plan Treatment Plan: Continue Plan of Care Treatment Plan: Bed Mobility, Education, Functional Activity Adonis, Functional Strength, Group Therapy, Gait, Safety, Therapeutic Exercise, Transfers Treatment Duration: Aug 20, 2019 Frequency: At least 5 of 7 days/Wk (IRF) Estimated Hrs Per Day: 1.5 hours per day Patient and/or Family Agrees t: Yes Safety Risks/Education Patient Education: Gait Training, Transfer Techniques, Correct Positioning, Safety Issues Teaching Recipient: Patient Teaching Methods: Discussion Response to Teaching: Verbalize Understanding Time/GCodes Time In: 1500 Time Out: 1530 Total Billed Treatment Time: 30 Total Billed Treatment 1, GT (15m) & EX (15m) ELISEO PETERSON SURGICAL CODER Aug 06, 2019 16:17 POS
[2019-08-06] MEDS ORDERED: ACETAMINOPHEN 500 MG TAB (TYLENOL) PO PRN (17:00)
[2019-08-06 18:00] VITALS: BP 118/79
[2019-08-06] MEDS: lisINopril 20 MG (PRINIVIL) TABLET PO SCH (21:14)
[2019-08-07] MEDS: HYDROcodone/APAP 5 MG/325 MG (LORTAB) TAB PO PRN ×6 (00:14→21:07)
[2019-08-07 06:00] VITALS: BP 125/75
[2019-08-07 06:36] LABS: BASOPHILS % (AUTO) 1 % (0-10); EOSINOPHILS # (AUTO) 0.3 10^3/uL (0.0-0.3); EOSINOPHILS % (AUTO) 4 % (0-10); HEMATOCRIT 27 % (40-54); HEMOGLOBIN 9.4 G/DL (13.3-17.7); LYMPHOCYTES # (AUTO) 1.7 X 10^3 (1.0-4.0); LYMPHOCYTES % (AUTO) 20 % (12-44); MEAN CORPUSCULAR HEMOGLOBIN 29 PG (25-34); MEAN CORPUSCULAR HGB CONC 34 G/DL (32-36); MEAN CORPUSCULAR VOLUME 85 FL (80-99); MEAN PLATELET VOLUME 10.1 FL (7.4-10.4); MONOCYTES # (AUTO) 0.7 X 10^3 (0.0-1.0); MONOCYTES % (AUTO) 8 % (0-12); NEUTROPHILS # (AUTO) 5.7 X 10^3 (1.8-7.8); NEUTROPHILS % (AUTO) 68 % (42-75); PLATELET COUNT 369 10^3/uL (130-400); RED CELL DISTRIBUTION WIDTH 14.9 % (10.0-14.5); WHITE BLOOD COUNT 8.5 10^3/uL (4.3-11.0)
[2019-08-07 07:02] LABS: ALANINE AMINOTRANSFERASE 27 U/L (0-55); ALBUMIN 3.4 GM/DL (3.2-4.5); ALKALINE PHOSPHATASE 38 U/L (40-136); BILIRUBIN,TOTAL 1.1 MG/DL (0.1-1.0); BUN/CREATININE RATIO 21; CALCIUM 8.6 MG/DL (8.5-10.1); CARBON DIOXIDE 22 MMOL/L (21-32); CHLORIDE 106 MMOL/L (98-107); CREATININE SERUM 0.71 MG/DL (0.60-1.30); GFR ESTIMATED > 60; GLUCOSE 134 MG/DL (70-105); SODIUM 138 MMOL/L (135-145); TOTAL PROTEIN 5.9 GM/DL (6.4-8.2)
[2019-08-07] MEDS: ENOXAPARIN 40 MG/0.4 ML (LOVENOX) SYR SC SCH (08:40)
[2019-08-07] MEDS: NEO/POLY/BAC (NEOSPORIN) OINT 15 GM TUBE TOP SCH (08:41)
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
--- NOTE | 2019-08-07 08:45 | Individualized Plan of Care ---
Individualized Plan of Care Rehab Nursing IPOC Order Admission Date Aug 06, 2019 at 09:40 Current Orders Orders Admission Order(Inpt,Obs,Sdc) (08/06/19 09:42) Vital Signs: Per Unit Policy ( 08,16,00 (08/06/19 09:42) Belting Cutter-Inpt Rehab Con (08/06/19 09:42) Rehab Nursing Orders-Ipoc (08/06/19 09:42) Physical Therapy Rehab Orders (08/06/19 09:42) Occupational Therapy Rehab Ord (08/06/19 09:42) Speech Therapy Rehab Orders (08/06/19 09:42) Cbc No Diff (08/06/19 09:42) Comprehensive Metabolic Panel (08/06/19 09:42) Intake & Output 06,14,22 (08/06/19 09:42) Precautions (Aru) (08/06/19 09:42) Weekly Weight WEEK (08/06/19 09:42) Rehab-Intensity Of Therapy (08/06/19 09:42) Initiate Admission Nursing Pro .admission (08/06/19 09:42) Acetaminophen Tablet (Tylenol Tablet) (08/06/19 12:00) Therapeutic Activity Goal (08/06/19 09:42) Initiate Admission Nursing Pro .admission (08/06/19 09:42) Admission Arrival Bed Request (08/06/19 09:49) Jesse/Poly/Crow Topical Ointment (Neosporin (08/07/19 09:00) Code/Resuscitation (08/06/19 11:29) Dressing Order (Intervention) ONCE (08/06/19 11:29) Ice: Apply To Affected Area (08/06/19 11:29) Incentive Spirometry (Nursing) Q2H (08/06/19 11:29) Oxygen-Administer 07,19 (08/06/19 11:29) Hydrocodone/Apap 5/325 Tablet (Lortab 5 (08/06/19 11:30) Ondansetron Oral Dissolve Tab (Zofran (08/06/19 11:30) Sodium Chloride Flush (Catheter Flush Sy (08/06/19 11:30) Lisinopril Tablet (Zestril Tablet) (08/06/19 21:00) Enoxaparin Injection (Lovenox Injection) (08/07/19 09:00) Request Ot Evaluate & Treat (08/06/19 11:49) Urinalysis (08/06/19 14:00) Chest Pa/Lat (2 View) (08/06/19 11:55) Cbc With Automated Diff (08/07/19 06:00) Comprehensive Metabolic Panel (08/07/19 06:00) Ambulate 08,12,20 (08/06/19 12:12) Sequential Compression Device Q4H (08/06/19 12:12) Dvt/Vte Risk - Notifiy Physici Q4H (08/06/19 12:12) Patient Visit (08/06/19 ) Speech Sound Lang Comp (08/06/19 ) Patient Visit (08/06/19 ) Pt Eval Moderate Complexity (08/06/19 ) Gait Training, Ea 15 Min (08/06/19 ) Functional Activities, Ea 15 (08/06/19 ) Patient Visit (08/06/19 ) Exercise Therap, Ea 15 Min (08/06/19 ) Gait Training, Ea 15 Min (08/06/19 ) Acetaminophen Tablet (Tylenol Tablet) (08/06/19 17:00) General/Regular (08/07/19 Dinner) Consult Physician (08/07/19 13:51) Patient Visit (08/07/19 ) Gait Training, Ea 15 Min (08/07/19 ) Exercise Therap, Ea 15 Min (08/07/19 ) Functional Activities, Ea 15 (08/07/19 ) Patient Visit (08/07/19 ) Therapeutic, Group (08/07/19 ) Loperamide Tablet (Imodium Tablet) (08/07/19 16:15) Rehab Nursing Orders: Ongoing Assess. of Function Status, Bladder Training, Bowel Management, Disease Management & Educaiton, DVT Prophylaxis, Fall Prevention, Fluid/Electrolyte/Nutrition Mgmt, Medication Management & Education, Management of Risks & Complications, Nutrition Management, Pain Management, Patient/Family Support, Safety Management Intensity of Therapy to be met Patient to be seen: Min.3h per day/5 of 7d PT IPOC Problem List: Activity Tolerance Treatment Plan: Continue Plan of Care Bed Mobility, Education, Functional Activity Adonis, Functional Strength, Group Therapy, Gait, Safety, Therapeutic Exercise, Transfers Treatment Duration: Aug 20, 2019 Frequency: At least 5 of 7 days/Wk (IRF) Estimated Hrs Per Day: 1.5 hours per day OT IPOC Problems: Decreased Activ Tolerance, Decreased UE Strength, Dependent T ransfers, Impaired Bed Mobility, Impaired Coordination, Impaired Funct Balance, Impaired I ADL's, Impaired Self-Care Skills, Restricted Funct UE ROM OT Treatment, Training and Edu: Yes Plan of Care: ADL Retraining, Caregiver Training, Functional Mobility, Group Exercise/Act as Ind, UE Funct Exercise/Act Treatment Duration: Aug 20, 2019 Frequency: At least 5 of 7 days/Wk (IRF) Estimated Hrs Per Day: 1.[address] IPOC Speech Therapy Treatment Plan: Discontinue ST Treatment Duration: Aug 06, 2019 Frequency: 1 time per week Estimated Hrs Per Day: .25 hour per day Belting Cutter/Case Mgmt Belting Cutter/Case Managemen: Discharge Planning Dietitian/Physician Dietitian/Physician to monitor nutritional status and make changes and/or recommendations as needed and work with speech pathology on dietary upgrades as the occur. Physician IPOC Medical Issues being managed closely and that require the 24 hour availability of a physician: Recent femur fracture with anemia post op and leukocytosis at risk for infection will require close observation Medical Issues: Bowel/Bladder Function, DVT Prophylaxis, Falls Precautions, Fluid/Electrolyte/Nutrition Balance, Infection Protection, Pain Management, Wound Care Brief Synthesis of Preadmission Screen, Post-Admission Evaluation, and Therapy Evaluations: PT will focus on partial weight bearing status with ambulatory devices OT will focus on regaining independent ADL's Medical Prognosis: Good Anticipated Length of Stay: 7 days YESENIA BERRY DO Aug 07, 2019 08:45 POS
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
--- NOTE | 2019-08-07 09:59 | Occupational Ther Daily Note ---
OT Current Status-Daily Note Subjective Pt alert, lying in bed. Pt agrees to therapy. Pt states that it is time for his pain pill, reported to nrsg. Pt stated that his hip was stiff and sore. Mental Status/Objective Patient Orientation: Person, Place, Time, Situation ADL-Treatment Pt agrees to shower. With bed slightly elevated and assist to hold front of FWW down while pt pulls self up with FWW, pt able to complete with CGA. Pt ambulated with SBA using platform FWW to shower. Transferred with close SBA for shower transfer. Sitting on shower bench to cleanse all areas using hand held shower, grabbars and long handle sponge. Set up for upper/lower body dressing. Pt donned/doffed upper body clothing by self. Pt introduced to dressing stick and sock aide for donning/doffing socks. Pt able to don/doff pants over feet by self then CGA in standing to hike pants over hips. Sitting at sink pt able to complete oral care and grooming. Nrsg in room at end of therapy. Pt sitting in recliner with call light/phone in reach. All needs met in room. Therapy Code Descriptions/Definitions Functional [place] Measure: 0=Not Assessed/NA 4=Minimal Assistance 1=Total Assistance 5=Supervision or Setup 2=Maximal Assistance 6=Modified [place] 3=Moderate Assistance 7=Complete IndependenceSCALE: Activities may be completed with or without assistive devices. 7-Xonvcucfrm-ueecpme completes the activity by him/herself with no assistance from a helper. 5-Set-up or Clean-up Assistance-helper sets up or cleans up; patient completes activity. [place] assists only prior to or following the activity. 4-Supervision or Touching Assistance-helper provides verbal cues and/or touching/steadying and/or contact guard assistance as patient completes activity. Assistance may be provided throughout the activity or intermittently. 3-Partial/Moderate Assistance-helper does LESS THAN HALF the effort. [place] lifts, holds or supports trunk or limbs, but provides less than half the effort. 2-Substantial/Maximal Assistance-helper does MORE THAN HALF the effort. [place] lifts or holds trunk or limbs and provides more than half the effort. 0-Pelpbvikq-qkjxgr does ALL the effort. Patient does none of the effort to complete the activity. Or, the assistance of 2 or more helpers is required for the patient to complete the activity. If activity was not attempted, code reason: 7-Patient Refused. 9-Not Applicable-not attempted and the patient did not perform the activity before the current illness, exacerbation or injury. 10-Not Attempted due to Environmental Limitations-(lack of equipment, weather restraints, etc.). 88-Not Attempted due to Medical Conditions or Safety Concerns. Oral Hygiene (QC): 6 Shower/Bathe Self (QC): 4 Upper Body Dressing (QC): 5 Lower Body Dressing (QC): 4 Toileting Hygiene (QC): 7 Toilet Transfer (QC): 7 Footwear (QC) 3 OT Short Term Goals Short Term Goals Upper Body Dressing(FIM): 3 Lower Body Dressing(FIM): 3 1=Demonstrate adherence to instructed precautions during ADL tasks. 2=Patient will verbalize/demonstrate understanding of assistive devices/modifications for ADL. 3=Patient will improve strength/tolerance for activity to enable patient to perform ADL's. OT Mcfp Goals Weight Checker Goals Time Frame: Aug 20, 2019 Eating (QC): 6 Oral Hygiene (QC): 6 Shower/Bathe Self (QC): 5 Upper Body Dressing (QC): 6 Lower Body Dressing (QC): 6 On/Off Footwear (QC): 6 Toileting Hygiene (QC): 6 Toilet/Commode Transfer (QC): 6 Additional Goals: 1-Demonstrate ADL Tasks, 2-Verbalize Understanding, 3- ImproveStrength/Adonis 1=Demonstrate adherence to instructed precautions during ADL tasks. 2=Patient will verbalize/demonstrate understanding of assistive devices/mod ifications for ADL. 3=Patient will improve strength/tolerance for activity to enable patient to perform ADL's. OT Education/Plan Problem List/Assessment Assessment: Decreased Activ Tolerance, Impaired Coordination, Impaired Funct Balance, Impaired Self-Care Skills, Restricted Funct UE ROM Discharge Recommendations Plan/Recommendations: Continue POC Treatment Plan/Plan of Care Patient would benefit from OT for education, treatment and training to promote independence in ADL's, mobility, safety and/or upper extremity function for ADL' s. Plan of Care: ADL Retraining, Caregiver Training, Functional Mobility, Group Exercise/Act as Ind, UE Funct Exercise/Act Treatment Duration: Aug 20, 2019 Frequency: At least 5 of 7 days/Wk (IRF) Estimated Hrs Per Day: 1.5 hours per day Rehab Potential: Good Time/GCodes Start Time: 08:15 Stop Time: 09:15 Total Time Billed (hr/min): 60 Billed Treatment Time 1 visit-ADL 4 (60 min) MAYE WALTER Aug 07, 2019 09:59 POS
--- NOTE | 2019-08-07 11:09 | Physical Therapy Daily Note ---
PT Daily Note-Current Subjective Pt agreeable to PT session. States he had his pain med about 2 hours ago. Pain Numeric Pain Scale: 5-Moderate Pain Comment: L hip pain, has been giving him the most problems, L knee tightens up Appearance Upon arrival, pt in bed awake and alert. Pt requesting and assisted to bathroom for BM during session, requiring physical assist for BM kiko care. At end of session, pt sitting up in recliner with feet on small pedestal, call light, phone and bedside table within reach. Mental Status Patient Orientation: Person, Place, Time, Eyes Open, Situation, Normal For Age Attachments: Other-See Comments cast LUE, splint RUE, bandages LLE Transfers SCALE: Activities may be completed with or without assistive devices. 2-Piefbaagbf-ajtjstf completes the activity by him/herself with no assistance from a helper. 5-Set-up or Clean-up Assistance-helper sets up or cleans up; patient completes activity. [place] assists only prior to or following the activity. 4-Supervision or Touching Assistance-helper provides verbal cues and/or touching/steadying and/or contact guard assistance as patient completes activity. Assistance may be provided throughout the activity or intermittently. 3-Partial/Moderate Assistance-helper does LESS THAN HALF the effort. [place] lifts, holds or supports trunk or limbs, but provides less than half the effort. 2-Substantial/Maximal Assistance-helper does MORE THAN HALF the effort. [place] lifts or holds trunk or limbs and provides more than half the effort. 3-Rlfttezxz-xpygxa does ALL the effort. Patient does none of the effort to complete the activity. Or, the assistance of 2 or more helpers is required for the patient to complete the activity. If activity was not attempted, code reason: 7-Patient Refused. 9-Not Applicable-not attempted and the patient did not perform the activity before the current illness, exacerbation or injury. 10-Not Attempted due to Environmental Limitations-(lack of equipment, weather restraints, etc.). 88-Not Attempted due to Medical Conditions or Safety Concerns. Roll Left to Right (QC): 5 (use of bedrail) Sit to Lying (QC): 5 (use of bedrail) Sit to Stand (QC): 3 (physical assist to stabilize walker for pt to stand due to not wanting to put pressure on UE's pushing from bed, instead UE's on platforms on walker before standing) Weight Bearing Right Lower Extremity: Right Full Weight Bearing Left Lower Extremity: Left Partial Weight Bearing Gait Training Does the Patient Walk?: Yes Distance: 400, 100 Walk 10 feet (QC): 4 Walk 50 ft with 2 Turns(QC): 4 Walk 150 ft (QC): 4 Gait Persons Needed: 1 Gait Assistive Device: Walker Platform (BUE platform) pt demonstrates good follow through with NWB LLE precautions, fair balance, several standing rest breaks, decreased stance time LLE and on toes, fatigue and SOA Exercises NuStep Minutes: 16 (16 min 47 sec, 1038 steps) NuStep Workload: 4 (LE's only) Treatments safety, education, bed mobility, transfers, gait, balance, strength, functional mobility, activity tolerance, kiko care Assessment Current Status: Good Progress PT Chcf Goals Print Finisher Goals PT Chcf Goals Time Frame: Aug 20, 2019 Sit to Lying (QC): 6 Lying-Sitting on Side/Bed(QC): 6 Sit to Stand (QC): 6 Roll Left to Right (QC): 6 Chair/Dcp-nw-Zeuio Xfer(QC): 6 Car Transfer (QC): 6 Walk 10 feet (QC): 6 Walk 10ft-Uneven Surface(QC): 6 Walk 50ft with 2 Turns (QC): 6 Walk 150 ft (QC): 6 Gait Assistive Device: FWW ( with platform) 1 Step (curb) (QC): 6 4 Steps (QC): 6 12 Steps (QC): 6 PT Plan Treatment/Plan Treatment Plan: Continue Plan of Care Treatment Plan: Bed Mobility, Education, Functional Activity Adonis, Functional Strength, Group Therapy, Gait, Safety, Therapeutic Exercise, Transfers Treatment Duration: Aug 20, 2019 Frequency: At least 5 of 7 days/Wk (IRF) Estimated Hrs Per Day: 1.5 hours per day Patient and/or Family Agrees t: Yes Safety Risks/Education Patient Education: Gait Training, Transfer Techniques, Reviewed Precautions, Safety Issues Teaching Recipient: Patient Teaching Methods: Discussion Response to Teaching: Verbalize Understanding, Return Demonstration Time/GCodes Time In: 1100 Time Out: 1200 Total Billed Treatment Time: 60 Total Billed Treatment 1 visit, ex x16 min, FA x17 min, GT x 27min ISRAEL KING MOLD MAKER PLASTER Aug 07, 2019 11:09 POS
--- NOTE | 2019-08-07 12:00 | NUR ---
provided prayer and Communion.
--- NOTE | 2019-08-07 14:25 | Therapy Group Daily Note ---
Therapy Daily Group Note Patient Education Topic Home Safety Exercises LE Seated Exercise, UE Exercise Session Ratio (pt:therapist): 6:2 Goal of Session: Home Safety Strategies, UE/LE Strengthing Goal Met for this Session: Yes Pt Benefit of Group: Contributions to Others, F/U Use of Strategies @Home, Increased Functional Safety, Increased Functional Strength, Improved Cognition, Recognition of Peers, Socialization Other/Notes Pt ambulated using B UE platform [facility]PT group. Group consisted of introductions (name, place living, favorite room), socialization, U E/LE seated exercises and educational topics over home safety environment/adaptive equipment. Pt introduced self appropriately and actively listened to peers. Pt was able to complete UE/LE exercises without difficulty. Pt acknowledged understanding of educational topics with personal stories and strategies used at own home. After therapy, pt lying in bed with call light/phone in reach. All needs met in room. Start Time: 12:55 Stop Time: 14:10 Total Billed Treatment Time: 75 Total Billed Treatment 1-[facility] MAYE WALTER Aug 07, 2019 14:25 POS
[2019-08-07] MEDS ORDERED: LOPERAMIDE 2 MG (IMODIUM) TABLET PO PRN (16:15)
--- NOTE | 2019-08-07 16:21 | NUR ---
Reviewed weekly rehab team conference summary with patient and his mother, Sweta Fuller. Patient is in agreement to a continued stay with proposed discharge 08/13/19 if medically and functionally stable; otherwise, review 08/14/19. DME: Will need shower chair, sock aide and dressing stick, FWW with bilateral platforms. SUMMARY/UPDATE: An optional day pass for weekend was discussed, patient verbalized he did not think he was ready for that. No other changes in discharge planning at this time. Patient is young and motivated to return home within the boundaries of his recuperation and functional status with adequate support.
[2019-08-07 17:29] VITALS: BP 133/78
[2019-08-07] MEDS: lisINopril 20 MG (PRINIVIL) TABLET PO SCH (20:24)
[2019-08-08] MEDS: HYDROcodone/APAP 5 MG/325 MG (LORTAB) TAB PO PRN ×5 (02:28→20:01)
[2019-08-08 05:12] VITALS: BP 115/71
[2019-08-08] MEDS: ENOXAPARIN 40 MG/0.4 ML (LOVENOX) SYR SC SCH (08:44)
[2019-08-08] MEDS: NEO/POLY/BAC (NEOSPORIN) OINT 15 GM TUBE TOP SCH (08:45)
--- NOTE | 2019-08-08 09:59 | Occupational Ther Daily Note ---
OT Current Status-Daily Note Subjective Pt seen in room, up in bed, agreeable to OT. No pain mentioned Appearance Alert, cooperative ADL-Treatment Pt agreeable to completing a sponge bath at the sink. CGA sit to stand, with bed elevated. Pt pulls up from walker due to difficulty positioning hands for push ing up (cast and splint on hands). Walked SBA, FWW with platforms, to bathroom and sat in chair with CGA. Pt setup bathing at sink and washed/dried upper body without help (except help to wash his back). Washed lower body with min assist sit to stand from lower chair and CGA when washing bottom while standing. Pt dressed upper body with setup, lower body with min assist sit to stand, then he pulled pants up. Doffed/donned socks with dressing stick and sock aid but otherwise setup. Brushed teeth indep at sink. Min assist to get up from chair, then walked SBA, FWW to recliner. Pt completed 15 reps bilat UE exercise with 1# weight on each arm, focusing on shoulders and elbows, as needed for getting up and down during ADLs. Up from recliner with CGA and walked SBA, FWW to bed. Able to get into bed without help. pt left up in bed, all needs met. Therapy Code Descriptions/Definitions Functional [place] Measure: 0=Not Assessed/NA 4=Minimal Assistance 1=Total Assistance 5=Supervision or Setup 2=Maximal Assistance 6=Modified [place] 3=Moderate Assistance 7=Complete IndependenceSCALE: Activities may be completed with or without assistive devices. 0-Jjxscxxuth-ajktyfd completes the activity by him/herself with no assistance from a helper. 5-Set-up or Clean-up Assistance-helper sets up or cleans up; patient completes activity. [place] assists only prior to or following the activity. 4-Supervision or Touching Assistance-helper provides verbal cues and/or touching/steadying and/or contact guard assistance as patient completes activity. Assistance may be provided throughout the activity or intermittently. 3-Partial/Moderate Assistance-helper does LESS THAN HALF the effort. [place] lifts, holds or supports trunk or limbs, but provides less than half the effort. 2-Substantial/Maximal Assistance-helper does MORE THAN HALF the effort. [place] lifts or holds trunk or limbs and provides more than half the effort. 2-Ndlppeeur-gikftq does ALL the effort. Patient does none of the effort to complete the activity. Or, the assistance of 2 or more helpers is required for the patient to complete the activity. If activity was not attempted, code reason: 7-Patient Refused. 9-Not Applicable-not attempted and the patient did not perform the activity before the current illness, exacerbation or injury. 10-Not Attempted due to Environmental Limitations-(lack of equipment, weather restraints, etc.). 88-Not Attempted due to Medical Conditions or Safety Concerns. Oral Hygiene (QC): 6 Shower/Bathe Self (QC): 3 (Min assist sit to stand to wash bottom, then CGA when standing) Upper Body Dressing (QC): 5 Lower Body Dressing (QC): 3 (min assist sit to stand to manage clothing. Socks setup) Education OT Patient Education: Exercise program, Progress toward Goal/Update tx plan, Purpose of tx/functional activities, Reviewed precautions, Transfer techniques, Use of adapted equipment Teaching Recipient: Patient Teaching Methods: Discussion Response to Teaching: Verbalize Understanding, Return Demonstration OT Short Term Goals Short Term Goals Upper Body Dressing(FIM): 3 Lower Body Dressing(FIM): 3 1=Demonstrate adherence to instructed precautions during ADL tasks. 2=Patient will verbalize/demonstrate understanding of assistive devices/modifications for ADL. 3=Patient will improve strength/tolerance for activity to enable patient to perform ADL's. OT Director Of Staff Development Goals [facility] Goals Time Frame: Aug 20, 2019 Eating (QC): 6 Oral Hygiene (QC): 6 Shower/Bathe Self (QC): 5 Upper Body Dressing (QC): 6 Lower Body Dressing (QC): 6 On/Off Footwear (QC): 6 Toileting Hygiene (QC): 6 Toilet/Commode Transfer (QC): 6 Additional Goals: 1-Demonstrate ADL Tasks, 2-Verbalize Understanding, 3- ImproveStrength/Adonis 1=Demonstrate adherence to instructed precautions during ADL tasks. 2=Patient will verbalize/demonstrate understanding of assistive devices/m odifications for ADL. 3=Patient will improve strength/tolerance for activity to enable patient to perform ADL's. OT Education/Plan Discharge Recommendations Plan/Recommendations: Continue POC Treatment Plan/Plan of Care Patient would benefit from OT for education, treatment and training to promote independence in ADL's, mobility, safety and/or upper extremity function for ADL's. Plan of Care: ADL Retraining, Caregiver Training, Functional Mobility, Group Exercise/Act as Ind, UE Funct Exercise/Act Treatment Duration: Aug 20, 2019 Frequency: At least 5 of 7 days/Wk (IRF) Estimated Hrs Per Day: 1.5 hours per day Rehab Potential: Good Time/GCodes Start Time: 08:45 Stop Time: 09:45 Total Time Billed (hr/min): 60 Billed Treatment Time visit, 45 minutes ADL, 15 minutes exercise GILA BARTH OT Aug 08, 2019 09:59 POS
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
--- NOTE | 2019-08-08 13:22 | Occupational Ther Daily Note ---
OT Current Status-Daily Note Subjective Pt seen in room up in bed, agreeable to OT. Pain mentioned later in tx, in his back due to sciatica, per pt report. He declined interventions during tx but applied ice pack to hip area at end of tx. Appearance Alert, cooperative ADL-Treatment Therapy Code Descriptions/Definitions Functional [place] Measure: 0=Not Assessed/NA 4=Minimal Assistance 1=Total Assistance 5=Supervision or Setup 2=Maximal Assistance 6=Modified [place] 3=Moderate Assistance 7=Complete IndependenceSCALE: Activities may be completed with or without assistive devices. 5-Lzvtiztynv-jxqnnmz completes the activity by him/herself with no assistance from a helper. 5-Set-up or Clean-up Assistance-helper sets up or cleans up; patient completes activity. [place] assists only prior to or following the activity. 4-Supervision or Touching Assistance-helper provides verbal cues and/or touching/steadying and/or contact guard assistance as patient completes ac tivity. Assistance may be provided throughout the activity or intermittently. 3-Partial/Moderate Assistance-helper does LESS THAN HALF the effort. [place] lifts, holds or supports trunk or limbs, but provides less than half the effort. 2-Substantial/Maximal Assistance-helper does MORE THAN HALF the effort. [place] lifts or holds trunk or limbs and provides more than half the effort. 6-Fwwpkyksr-gxkltl does ALL the effort. Patient does none of the effort to complete the activity. Or, the assistance of 2 or more helpers is required for the patient to complete the activity. If activity was not attempted, code reason: 7-Patient Refused. 9-Not Applicable-not attempted and the patient did not perform the activity before the current illness, exacerbation or injury. 10-Not Attempted due to Environmental Limitations-(lack of equipment, weather restraints, etc.). 88-Not Attempted due to Medical Conditions or Safety Concerns. Other Treatment Pt got up to EOB without help and got up from bed with help holding walker stationary. He walked SBA, FWW with platforms, to gym, appearing to follow weight bearing restrictions. He got into chair with arms with SBA but needed help to hold walker steady when getting back up at end of tx. He completed 10 minutes bilat UE exercise set at 15-20W resistance and no recovery breaks except at end. He reported no difficulty hanging on to handles with his hands, even with cast and splint. To strengthen arms to help with transfers and ADLs. Pt walked back to room SBA, FWW and got into bed SBA. 4 rails up, per pt request. Pt left up in bed, all needs met, ice packs for comfort. Education OT Patient Education: Exercise program, Progress toward Goal/Update tx plan, Purpose of tx/functional activities Teaching Recipient: Patient Teaching Methods: Discussion Response to Teaching: Verbalize Understanding, Return Demonstration OT Short Term Goals Short Term Goals Upper Body Dressing(FIM): 3 Lower Body Dressing(FIM): 3 1=Demonstrate adherence to instructed precautions during ADL tasks. 2=Patient will verbalize/demonstrate understanding of assistive devices/m odifications for ADL. 3=Patient will improve strength/tolerance for activity to enable patient to perform ADL's. OT [facility] Goals Linen Manager Goals Time Frame: Aug 20, 2019 Eating (QC): 6 Oral Hygiene (QC): 6 Shower/Bathe Self (QC): 5 Upper Body Dressing (QC): 6 Lower Body Dressing (QC): 6 On/Off Footwear (QC): 6 Toileting Hygiene (QC): 6 Toilet/Commode Transfer (QC): 6 Additional Goals: 1-Demonstrate ADL Tasks, 2-Verbalize Understanding, 3- ImproveStrength/Adonis 1=Demonstrate adherence to instructed precautions during ADL tasks. 2=Patient will verbalize/demonstrate understanding of assistive devices/modifications for ADL. 3=Patient will improve strength/tolerance for activity to enable patient to perform ADL's. OT Education/Plan Discharge Recommendations Plan/Recommendations: Continue POC Treatment Plan/Plan of Care Patient would benefit from OT for education, treatment and training to promote independence in ADL's, mobility, safety and/or upper extremity function for ADL's. Plan of Care: ADL Retraining, Caregiver Training, Functional Mobility, Group Exercise/Act as Ind, UE Funct Exercise/Act Treatment Duration: Aug 20, 2019 Frequency: At least 5 of 7 days/Wk (IRF) Estimated Hrs Per Day: 1.5 hours per day Rehab Potential: Good Time/GCodes Start Time: 12:45 Stop Time: 13:15 Total Time Billed (hr/min): 30 Billed Treatment Time visit, 30 minutes exercise GILA BARTH OT Aug 08, 2019 13:22 POS
--- NOTE | 2019-08-08 15:10 | Physical Therapy Daily Note ---
PT Daily Note-Current Subjective Patient agrees to PT at this time. Patient reports he would like to walk and use the NuStep to work his legs. Pain Numeric Pain Scale: 5-Moderate Pain Location: Left Location Body Site: Thigh Pain Description: Ache Mental Status Patient Orientation: Person, Place, Time, Situation Transfers SCALE: Activities may be completed with or without assistive devices. 7-Eybmmktefu-tllmjhr completes the activity by him/herself with no assistance from a helper. 5-Set-up or Clean-up Assistance-helper sets up or cleans up; patient completes activity. [place] assists only prior to or following the activity. 4-Supervision or Touching Assistance-helper provides verbal cues and/or touching/steadying and/or contact guard assistance as patient completes activity. Assistance may be provided throughout the activity or intermittently. 3-Partial/Moderate Assistance-helper does LESS THAN HALF the effort. [place] lifts, holds or supports trunk or limbs, but provides less than half the effort. 2-Substantial/Maximal Assistance-helper does MORE THAN HALF the effort. [place] lifts or holds trunk or limbs and provides more than half the effort. 2-Bpvkbaesd-aurwlf does ALL the effort. Patient does none of the effort to complete the activity. Or, the assistance of 2 or more helpers is required for the patient to complete the activity. If activity was not attempted, code reason: 7-Patient Refused. 9-Not Applicable-not attempted and the patient did not perform the activity before the current illness, exacerbation or injury. 10-Not Attempted due to Environmental Limitations-(lack of equipment, weather restraints, etc.). 88-Not Attempted due to Medical Conditions or Safety Concerns. Roll Left to Right (QC): 5 Sit to Lying (QC): 5 Sit to Stand (QC): 5 Weight Bearing Right Lower Extremity: Right Full Weight Bearing Left Lower Extremity: Left Partial Weight Bearing Gait Training Gait: 4 Distance: 300' Walk 10 feet (QC): 4 Walk 50 ft with 2 Turns(QC): 4 Walk 150 ft (QC): 4 Gait Assistive Device: Walker Platform PWB LLE compliant during ambulation, forward flexed posture to weight bear through UE on walker, requires rest breaks during prolonged ambulation. Exercises Seated Therapy Exercises: Sit to stand Seated Reps: 5 NuStep Minutes: 12 (For strengthening and mobility) NuStep Workload: 4 Assessment Patient able to perform bed mobility from supine to sitting EOB without assistance, using platform walker to help stand. Patient ambulated 300' with platform walker with a few rest breaks to recover from fatigue. Patient performed 12 minutes of NuStep with just LE movement at load 4 to improve strengthening and provide mobility of BLE. Patient then performed 3 sets of STS from chair with focus on not using UE to assist and maintaining PWB of LLE. Patient returned to bed at conclusion of treatment with ice on hip. PT Alf Goals Alf Goals PT Alf Goals Time Frame: Aug 20, 2019 Sit to Lying (QC): 6 Lying-Sitting on Side/Bed(QC): 6 Sit to Stand (QC): 6 Roll Left to Right (QC): 6 Chair/Jow-ez-Ucdvb Xfer(QC): 6 Car Transfer (QC): 6 Walk 10 feet (QC): 6 Walk 10ft-Uneven Surface(QC): 6 Walk 50ft with 2 Turns (QC): 6 Walk 150 ft (QC): 6 Gait Assistive Device: FWW ( with platform) 1 Step (curb) (QC): 6 4 Steps (QC): 6 12 Steps (QC): 6 PT Plan Treatment/Plan Treatment Plan: Continue Plan of Care Treatment Plan: Bed Mobility, Education, Functional Activity Adonis, Functional Strength, Group Therapy, Gait, Safety, Therapeutic Exercise, Transfers Treatment Duration: Aug 20, 2019 Frequency: At least 5 of 7 days/Wk (IRF) Estimated Hrs Per Day: 1.5 hours per day Patient and/or Family Agrees t: Yes Time/GCodes Time In: 1430 Time Out: 1500 Total Billed Treatment Time: 30 Total Billed Treatment 1 visit EX 15min FA 15min TRACE MICHAELS PT Aug 08, 2019 15:10 POS
[2019-08-08 16:27] VITALS: BP 117/72
--- NOTE | 2019-08-08 18:00 | NUR ---
FEELS LIKE PAIN IS WELL CONTROLLED. ICE PACKS HELP WITH THE PAIN.
[2019-08-08] MEDS: lisINopril 20 MG (PRINIVIL) TABLET PO SCH (20:01)
[2019-08-09] MEDS: HYDROcodone/APAP 5 MG/325 MG (LORTAB) TAB PO PRN ×5 (00:45→19:34)
[2019-08-09 06:21] VITALS: BP 127/76
[2019-08-09] MEDS: NEO/POLY/BAC (NEOSPORIN) OINT 15 GM TUBE TOP SCH (08:30)
[2019-08-09] MEDS: ENOXAPARIN 40 MG/0.4 ML (LOVENOX) SYR SC SCH (08:30)
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
--- NOTE | 2019-08-09 09:57 | Occupational Ther Daily Note ---
OT Current Status-Daily Note Subjective Pt seen in room, up in bed, agreeable to OT. Pain not mentioned. Appearance Alert, cooperative Mental Status/Objective Patient Orientation: Person, Place, Time, Situation Attachments: Other-See Comments (cast L UE) ADL-Treatment Pt got up from bed with SBA and help holding the walker steady. Walked into bathroom SBA and transferred into shower stall and onto shower bench SBA, using grab bars. Moves rapidly and encouraged to slow down a bit for safety. He undressed with setup, using dressing stick. Cast covered with plastic. pt turned water on and off, retrieved towels, washed and dried all parts except SBA when standing to wash bottom. Transferred CGA, FWW to chair to dress. Pt took a large step out of the shower and recognized that it was too big so he adjusted it. Dressed with setup and SBA when standing to pull pants up (also held walker steady). Used sock aid for donning socks setup. He brushed teeth independently seated at the sink. Therapy Code Descriptions/Definitions Functional [place] Measure: 0=Not Assessed/NA 4=Minimal Assistance 1=Total Assistance 5=Supervision or Setup 2=Maximal Assistance 6=Modified [place] 3=Moderate Assistance 7=Complete IndependenceSCALE: Activities may be completed with or without assistive devices. 4-Vicyxzcavn-gbrofpq completes the activity by him/herself with no assistance from a helper. 5-Set-up or Clean-up Assistance-helper sets up or cleans up; patient completes activity. [place] assists only prior to or following the activity. 4-Supervision or Touching Assistance-helper provides verbal cues and/or touching/steadying and/or contact guard assistance as patient completes activity. Assistance may be provided throughout the activity or intermittently. 3-Partial/Moderate Assistance-helper does LESS THAN HALF the effort. [place] lifts, holds or supports trunk or limbs, but provides less than half the effort. 2-Substantial/Maximal Assistance-helper does MORE THAN HALF the effort. [place] lifts or holds trunk or limbs and provides more than half the effort. 0-Orjhnikyo-grzyjg does ALL the effort. Patient does none of the effort to complete the activity. Or, the assistance of 2 or more helpers is required for the patient to complete the activity. If activity was not attempted, code reason: 7-Patient Refused. 9-Not Applicable-not attempted and the patient did not perform the activity before the current illness, exacerbation or injury. 10-Not Attempted due to Environmental Limitations-(lack of equipment, weather restraints, etc.). 88-Not Attempted due to Medical Conditions or Safety Concerns. Oral Hygiene (QC): 6 Shower/Bathe Self (QC): 4 (SBA) Upper Body Dressing (QC): 5 Lower Body Dressing (QC): 4 (SBA) Toileting Hygiene (QC): 5 Other Treatment Pt completed 15 reps bilat UE exercise with 1# weight on each arm, needed only initiation cues for each exercise. To strengthen arms to help with transfers and ADLs. Pt got up from chair with SBA, steadying for walker, then walked SBA to bed. Pt left up in bed, 4 rails up at his request, ice packs available, all needs met. Education OT Patient Education: Exercise program, Modified ADL techniques, Purpose of tx/functional activities, Safety issues, Transfer techniques Teaching Recipient: Patient Teaching Methods: Discussion Response to Teaching: Verbalize Understanding, Return Demonstration OT Short Term Goals Short Term Goals Upper Body Dressing(FIM): 3 Lower Body Dressing(FIM): 3 1=Demonstrate adherence to instructed precautions during ADL tasks. 2=Patient will verbalize/demonstrate understanding of assistive devices/modifications for ADL. 3=Patient will improve strength/tolerance for activity to enable patient to perform ADL's. OT [facility] Goals Guest Specialist Goals Time Frame: Aug 20, 2019 Eating (QC): 6 Oral Hygiene (QC): 6 Shower/Bathe Self (QC): 5 Upper Body Dressing (QC): 6 Lower Body Dressing (QC): 6 On/Off Footwear (QC): 6 Toileting Hygiene (QC): 6 Toilet/Commode Transfer (QC): 6 Additional Goals: 1-Demonstrate ADL Tasks, 2-Verbalize Understanding, 3-ImproveStrength/Adonis 1=Demonstrate adherence to instructed precautions during ADL tasks. 2=Patient will verbalize/demonstrate understanding of assistive devices/modifications for ADL. 3=Patient will improve strength/tolerance for activity to enable patient to perform ADL's. OT Education/Plan Discharge Recommendations Plan/Recommendations: Continue POC Treatment Plan/Plan of Care Patient would benefit from OT for education, treatment and training to promote independence in ADL's, mobility, safety and/or upper extremity function for ADL's. Plan of Care: ADL Retraining, Caregiver Training, Functional Mobility, Group Exercise/Act as Ind, UE Funct Exercise/Act Treatment Duration: Aug 20, 2019 Frequency: At least 5 of 7 days/Wk (IRF) Estimated Hrs Per Day: 1.5 hours per day Rehab Potential: Good Time/GCodes Start Time: 08:45 Stop Time: 09:45 Total Time Billed (hr/min): 60 Billed Treatment Time visit, 45 minutes ADL, 15 minutes exercise GILA BARTH OT Aug 09, 2019 09:57 POS
--- NOTE | 2019-08-09 12:06 | Physical Therapy Daily Note ---
PT Daily Note-Current Subjective Pt. states he is in some pain in LLE he still identifies as sciatic pain and requests stretches he can do Pain Numeric Pain Scale: 4 Location: Left Location Body Site: Hip (sciatica) Pain Description: Radiating Mental Status Patient Orientation: Normal For Age Attachments: Other-See Comments (wrist splint and cast) Transfers SCALE: Activities may be completed with or without assistive devices. 8-Nybbebyqxb-jbiqlln completes the activity by him/herself with no assistance from a helper. 5-Set-up or Clean-up Assistance-helper sets up or cleans up; patient completes activity. [place] assists only prior to or following the activity. 4-Supervision or Touching Assistance-helper provides verbal cues and/or touching/steadying and/or contact guard assistance as patient completes activity. Assistance may be provided throughout the activity or intermittently. 3-Partial/Moderate Assistance-helper does LESS THAN HALF the effort. [place] lifts, holds or supports trunk or limbs, but provides less than half the effort. 2-Substantial/Maximal Assistance-helper does MORE THAN HALF the effort. [place] lifts or holds trunk or limbs and provides more than half the effort. 8-Vhyuxxrvo-rtnrce does ALL the effort. Patient does none of the effort to comp lete the activity. Or, the assistance of 2 or more helpers is required for the patient to complete the activity. If activity was not attempted, code reason: 7-Patient Refused. 9-Not Applicable-not attempted and the patient did not perform the activity before the current illness, exacerbation or injury. 10-Not Attempted due to Environmental Limitations-(lack of equipment, weather restraints, etc.). 88-Not Attempted due to Medical Conditions or Safety Concerns. Transfers (B, C, W/C): 5 Roll Left to Right (QC): 6 Sit to Lying (QC): 6 Sit to Stand (QC): 5 Chair/Ova-lv-Vbzcn Xfer(QC): 5 Weight Bearing Right Lower Extremity: Right Full Weight Bearing Left Lower Extremity: Left Partial Weight Bearing Gait Training Does the Patient Walk?: Yes Gait: 5 Walk 10 feet (QC): 5 Walk 50 ft with 2 Turns(QC): 5 Walk 150 ft (QC): 5 Gait Persons Needed: 1 Gait Assistive Device: Walker Platform bilat platf attachnvs Stair Training Stair Training: Handrails/: uses walker #of Steps: 3 1 Step (curb) (QC): 4 Stairs: Pattern: Step to Level of Assist: 4 initiated steps with pink step using FWW over with instruction needed for sequence each step Exercises Supine Ex: Ankle pumps, Quad Set, Rolling, Glut sets, Heel Slides, Short Arc Quads, Scooting, Straight leg raise (assisted L), Hip abd/add Supine Reps: 20 supine for L hamstring stretch technique for neural stretches 4 x 15 sec with pull stretch technique. instructed pt in seated hamstring stretches as well, nustep 15 m at 5 as well as seated leg presses on nustep NuStep Minutes: 15 NuStep Workload: 5 Assessment Current Status: Good Progress PT Rx Specialist Goals Halfway Goals PT Rx Specialist Goals Time Frame: Aug 20, 2019 Sit to Lying (QC): 6 Lying-Sitting on Side/Bed(QC): 6 Sit to Stand (QC): 6 Roll Left to Right (QC): 6 Chair/Bfz-sr-Ovlgh Xfer(QC): 6 Car Transfer (QC): 6 Walk 10 feet (QC): 6 Walk 10ft-Uneven Surface(QC): 6 Walk 50ft with 2 Turns (QC): 6 Walk 150 ft (QC): 6 Gait Assistive Device: FWW ( with platform) 1 Step (curb) (QC): 6 4 Steps (QC): 6 12 Steps (QC): 6 PT Plan Treatment/Plan Treatment Plan: Continue Plan of Care Treatment Plan: Bed Mobility, Education, Functional Activity Adonis, Functional Strength, Group Therapy, Gait, Safety, Therapeutic Exercise, Transfers Treatment Duration: Aug 20, 2019 Frequency: At least 5 of 7 days/Wk (IRF) Estimated Hrs Per Day: 1.5 hours per day Patient and/or Family Agrees t: Yes Safety Risks/Education Patient Education: Gait Training, Transfer Techniques, Steps, Correct Positioning, Disease Process, Safety Issues Teaching Recipient: Patient Teaching Methods: Demonstration, Discussion Response to Teaching: Verbalize Understanding, Return Demonstration, Reinforcement Needed Time/GCodes Time In: 1100 Time Out: 1200 Total Billed Treatment Time: 60 Total Billed Treatment 1,GT15m,EX25m,FA20m LEONARDA DEY ACCOUNTING TECHNICIAN Aug 09, 2019 12:06 POS
--- NOTE | 2019-08-09 13:17 | NUR ---
provided prayer and Communion.
--- NOTE | 2019-08-09 14:29 | Therapy Group Daily Note ---
Therapy Daily Group Note Patient Education Topic Home Safety (winter health and safety) Exercises LE Seated Exercise, UE Exercise Session Ratio (pt:therapist): 4:1 Goal of Session: Home Safety Strategies, UE/LE Strengthing Goal Met for this Session: Yes Pt Benefit of Group: Contributions to Others, F/U Use of Strategies @Home, Increased Functional Safety, Socialization Other/Notes Pt. was an active participant in PT OT group session. Pt. introduced himself a nd shared readily regarding subject matter. Education was focused on managing winter at home and in your community, staying healthy and safe in all aspects of living during winter, ie nutrition and hydration, influenza and pnuemonia vaccines, managing depression and loneliness, staying active and safe at home during possible periods of ice, snow or power outages. Pts. all participated in seated U&L extremity exercises sharing and demonstrating exercises they recall. Pt. to from group with assistance for ambulation with FWW. Pt in bed after group with call ball at side and needs met. Start Time: 13:00 Stop Time: 14:10 Total Billed Treatment Time: 70 Total Billed Treatment 1,GRP LEONARDA DEY LAMINATION MACHINE OPERATOR Aug 09, 2019 14:29 POS
[2019-08-09 16:00] VITALS: BP 118/66
[2019-08-09 18:47] VITALS: BP 118/66
[2019-08-09] MEDS: lisINopril 20 MG (PRINIVIL) TABLET PO SCH (19:35)
[2019-08-10] MEDS: HYDROcodone/APAP 5 MG/325 MG (LORTAB) TAB PO PRN ×5 (01:12→19:20)
[2019-08-10 05:30] VITALS: BP 124/73
--- NOTE | 2019-08-10 08:08 | Physical Therapy Daily Note ---
PT Daily Note-Current Subjective States that he is doing okay. Transfers SCALE: Activities may be completed with or without assistive devices. 4-Vhtxgxproh-qjnwmfq completes the activity by him/herself with no assistance from a helper. 5-Set-up or Clean-up Assistance-helper sets up or cleans up; patient completes activity. [place] assists only prior to or following the activity. 4-Supervision or Touching Assistance-helper provides verbal cues and/or touching/steadying and/or contact guard assistance as patient completes activity. Assistance may be provided throughout the activity or intermittently. 3-Partial/Moderate Assistance-helper does LESS THAN HALF the effort. [place] lifts, holds or supports trunk or limbs, but provides less than half the effort. 2-Substantial/Maximal Assistance-helper does MORE THAN HALF the effort. [place] lifts or holds trunk or limbs and provides more than half the effort. 3-Qvcxxrwqj-ulntdd does ALL the effort. Patient does none of the effort to complete the activity. Or, the assistance of 2 or more helpers is required for the patient to complete the activity. If activity was not attempted, code reason: 7-Patient Refused. 9-Not Applicable-not attempted and the patient did not perform the activity before the current illness, exacerbation or injury. 10-Not Attempted due to Environmental Limitations-(lack of equipment, weather restraints, etc.). 88-Not Attempted due to Medical Conditions or Safety Concerns. Transfers (B, C, W/C): 5 Roll Left to Right (QC): 5 Sit to Lying (QC): 5 Sit to Stand (QC): 5 Chair/Fka-oe-Wgumm Xfer(QC): 5 Bed to/from Chair: 5 Car Transfer (QC): 5 Weight Bearing Right Lower Extremity: Right Full Weight Bearing Left Lower Extremity: Left Partial Weight Bearing Gait Training Gait: 5 Distance: 50' x 2 Gait Persons Needed: 1 Gait Assistive Device: Walker Platform Exercises Assisted stretches of: SKTC, piriformis stretch, knee across body stretch, hamstring stretch and trunk rotations. NuStep Minutes: 5 NuStep Workload: 4 Assessment Current Status: Excellent Progress Patient had improved flexibility after stretching. PT Manager Heart Failure Goals Manager Heart Failure Goals PT Manager Heart Failure Goals Time Frame: Aug 20, 2019 Sit to Lying (QC): 6 Lying-Sitting on Side/Bed(QC): 6 Sit to Stand (QC): 6 Roll Left to Right (QC): 6 Chair/Cgk-ja-Mhblm Xfer(QC): 6 Car Transfer (QC): 6 Walk 10 feet (QC): 6 Walk 10ft-Uneven Surface(QC): 6 Walk 50ft with 2 Turns (QC): 6 Walk 150 ft (QC): 6 Gait Assistive Device: FWW ( with platform) 1 Step (curb) (QC): 6 4 Steps (QC): 6 12 Steps (QC): 6 PT Plan Treatment/Plan Treatment Plan: Continue Plan of Care Treatment Plan: Bed Mobility, Education, Functional Activity Adonis, Functional Strength, Group Therapy, Gait, Safety, Therapeutic Exercise, Transfers Treatment Duration: Aug 20, 2019 Frequency: At least 5 of 7 days/Wk (IRF) Estimated Hrs Per Day: 1.5 hours per day Patient and/or Family Agrees t: Yes Time/GCodes Time In: 725 Time Out: 755 Total Billed Treatment Time: 30 Total Billed Treatment 10' gait, 20' ther-ex ORI SAMANIEGO PT Aug 10, 2019 08:08 POS
[2019-08-10] MEDS: ENOXAPARIN 40 MG/0.4 ML (LOVENOX) SYR SC SCH (08:37)
[2019-08-10] MEDS: NEO/POLY/BAC (NEOSPORIN) OINT 15 GM TUBE TOP SCH (08:43)
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
[2019-08-10 16:38] VITALS: BP 119/75
[2019-08-10] MEDS: lisINopril 20 MG (PRINIVIL) TABLET PO SCH (19:20)
[2019-08-11] MEDS: HYDROcodone/APAP 5 MG/325 MG (LORTAB) TAB PO PRN ×5 (01:25→22:01)
[2019-08-11 05:07] VITALS: BP 130/62
[2019-08-11] MEDS: ENOXAPARIN 40 MG/0.4 ML (LOVENOX) SYR SC SCH (08:38)
[2019-08-11] MEDS: NEO/POLY/BAC (NEOSPORIN) OINT 15 GM TUBE TOP SCH (11:50)
[2019-08-11 17:30] VITALS: BP 136/83
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
[2019-08-11] MEDS: lisINopril 20 MG (PRINIVIL) TABLET PO SCH (19:57)
[2019-08-12] MEDS: HYDROcodone/APAP 5 MG/325 MG (LORTAB) TAB PO PRN ×4 (02:50→19:44)
[2019-08-12 05:06] VITALS: BP 110/70
[2019-08-12 05:11] LABS: BASOPHILS # (AUTO) 0.1 10^3/uL (0.0-0.1); BASOPHILS % (AUTO) 1 % (0-10); EOSINOPHILS # (AUTO) 0.3 10^3/uL (0.0-0.3); EOSINOPHILS % (AUTO) 4 % (0-10); HEMATOCRIT 31 % (40-54); HEMOGLOBIN 10.4 G/DL (13.3-17.7); LYMPHOCYTES # (AUTO) 1.7 X 10^3 (1.0-4.0); LYMPHOCYTES % (AUTO) 22 % (12-44); MEAN CORPUSCULAR HGB CONC 34 G/DL (32-36); MEAN CORPUSCULAR VOLUME 86 FL (80-99); MONOCYTES # (AUTO) 0.6 X 10^3 (0.0-1.0); MONOCYTES % (AUTO) 8 % (0-12); NEUTROPHILS # (AUTO) 5.1 X 10^3 (1.8-7.8); NEUTROPHILS % (AUTO) 66 % (42-75); PLATELET COUNT 340 10^3/uL (130-400); WHITE BLOOD COUNT 7.8 10^3/uL (4.3-11.0)
[2019-08-12 05:17] LABS: MEAN CORPUSCULAR HEMOGLOBIN 29 PG (25-34)
[2019-08-12 05:31] LABS: ALANINE AMINOTRANSFERASE 23 U/L (0-55); ALBUMIN 3.8 GM/DL (3.2-4.5); ALKALINE PHOSPHATASE 105 U/L (40-136); BILIRUBIN,TOTAL 0.8 MG/DL (0.1-1.0); BUN/CREATININE RATIO 25; CALCIUM 8.9 MG/DL (8.5-10.1); CARBON DIOXIDE 20 MMOL/L (21-32); CHLORIDE 106 MMOL/L (98-107); CREATININE SERUM 0.72 MG/DL (0.60-1.30); GFR ESTIMATED > 60; GLUCOSE 131 MG/DL (70-105); POTASSIUM 3.9 MMOL/L (3.6-5.0); SODIUM 138 MMOL/L (135-145); TOTAL PROTEIN 6.4 GM/DL (6.4-8.2)
[2019-08-12] MEDS: NEO/POLY/BAC (NEOSPORIN) OINT 15 GM TUBE TOP SCH (08:25)
[2019-08-12] MEDS: ENOXAPARIN 40 MG/0.4 ML (LOVENOX) SYR SC SCH (08:25)
--- NOTE | 2019-08-12 08:56 | Physical Therapy Daily Note ---
PT Daily Note-Current Subjective pt in bed pre-tx agrees to PT. Pt reports 5/10 pain in the L hip this morning, pain meds given during session. Pt spouse in room for duration of tx. Appearance pt sitting EOB post-tx with spouse present. pt with call light, room phone, tray table in reach with all needs met at this time. Mental Status Patient Orientation: Person, Place, Time, Situation Transfers SCALE: Activities may be completed with or without assistive devices. 3-Jtheexvxwj-aeutuyg completes the activity by him/herself with no assistance from a helper. 5-Set-up or Clean-up Assistance-helper sets up or cleans up; patient completes activity. Clint assists only prior to or following the activity. 4-Supervision or Touching Assistance-helper provides verbal cues and/or touching/steadying and/or contact guard assistance as patient completes activity. Assistance may be provided throughout the activity or intermittently. 3-Partial/Moderate Assistance-helper does LESS THAN HALF the effort. Clint lifts, holds or supports trunk or limbs, but provides less than half the effort. 2-Substantial/Maximal Assistance-helper does MORE THAN HALF the effort. Clint lifts or holds trunk or limbs and provides more than half the effort. 3-Mycjkafit-bwepbe does ALL the effort. Patient does none of the effort to complete the activity. Or, the assistance of 2 or more helpers is required for the patient to complete the activity. If activity was not attempted, code reason: 7-Patient Refused. 9-Not Applicable-not attempted and the patient did not perform the activity before the current illness, exacerbation or injury. 10-Not Attempted due to Environmental Limitations-(lack of equipment, weather restraints, etc.). 88-Not Attempted due to Medical Conditions or Safety Concerns. Roll Left to Right (QC): 6 (pt unable to roll to the left secondary to pain.) Sit to Lying (QC): 6 Sit to Stand (QC): 6 Chair/Ana-hb-Fnugr Xfer(QC): 6 Car Transfer (QC): 6 Pt is independent with all transfers at this time including all bed mobility, sit <-> stand, and supine <->sit. for sit<-> stand pt keeps B/L UE on FWW with platforms and pulls up or slowly lowers down. Weight Bearing Right Lower Extremity: Right Full Weight Bearing Left Lower Extremity: Left Partial Weight Bearing Gait Training Does the Patient Walk?: Yes Distance: 250', 200' Walk 10 feet (QC): 6 Walk 50 ft with 2 Turns(QC): 6 Walk 150 ft (QC): 6 Walking 10ft/uneven surface-QC: 6 Gait Assistive Device: Walker Platform (B/L) Pt is indep ambulating up to 250' with a B/L platform FWW including 150' and 50' with atleast 2 turns. Pt continues to lack LLE heel strike first and maintains L knee in a flexed position through gait. Pt demonstrates increased WB through UE platforms. Wheelchair Training Does the Pt Use a Wheelchair?: No Stair Training Stair Training: Handrails/: uses walker #of Steps: 1 1 Step (curb) (QC): 6 4 Steps (QC): 88 12 Steps (QC): 88 Stairs: Pattern: Step to Pt able to ambulate up one curb step indep with FWW. Pt unable to attempt multiple steps secondary to unable to put weight through B/L hands Balance Picking up an Object (QC): 4 (CGA) Exercises Supine Ex: Ankle pumps, Quad Set, Heel Slides, Short Arc Quads, Straight leg raise Supine Reps: 40 (20sets 2 reps) Seated Therapy Exercises: Long arc quads, Hip flexion, Hip abd/add Seated Reps: 40 (20reps 2 sets) Treatments Pt performed functional LE strengthening exercises, skilled ambulation training, bed mobility training, transfer training, step training, and education this date. Assessment Current Status: Good Progress Pt is able to ernesto increased ambulation distance. Pt is able to transfer and perform bed mobility indep at this time. Pt reports no increase in pain from baseline during this session. pt requires 2 standing rest breaks during each ambulation set. PT Assisted Goals Paraffin Plant Sweater Operator Goals PT Paraffin Plant Sweater Operator Goals Time Frame: Aug 20, 2019 Sit to Lying (QC): 6 Lying-Sitting on Side/Bed(QC): 6 Sit to Stand (QC): 6 Roll Left to Right (QC): 6 Chair/Cak-se-Woham Xfer(QC): 6 Car Transfer (QC): 6 Walk 10 feet (QC): 6 Walk 10ft-Uneven Surface(QC): 6 Walk 50ft with 2 Turns (QC): 6 Walk 150 ft (QC): 6 Gait Assistive Device: FWW ( with platform) 1 Step (curb) (QC): 6 4 Steps (QC): 6 12 Steps (QC): 6 PT Plan Problem List Problem List: Activity Tolerance, Functional Strength, Safety, Balance, Gait, Transfer, Bed Mobility, ROM Treatment/Plan Treatment Plan: Continue Plan of Care Treatment Plan: Bed Mobility, Education, Functional Activity Adonis, Functional Strength, Group Therapy, Gait, Safety, Therapeutic Exercise, Transfers Treatment Duration: Aug 20, 2019 Frequency: At least 5 of 7 days/Wk (IRF) Estimated Hrs Per Day: 1.5 hours per day Patient and/or Family Agrees t: Yes Safety Risks/Education Patient Education: Gait Training, Transfer Techniques, Steps, Correct Positioning, Safety Issues Teaching Recipient: Patient Teaching Methods: Demonstration, Discussion Response to Teaching: Return Demonstration, Reinforcement Needed Time/GCodes Time In: 800 Time Out: 900 Total Billed Treatment Time: 60 Total Billed Treatment 1 visit FA 30' EX 30' MARSHALL LONG PT Aug 12, 2019 08:56 POS
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
--- NOTE | 2019-08-12 10:25 | Occupational Ther Daily Note ---
OT Current Status-Daily Note Subjective Pt alert, lying in bed. Pt agrees to therapy. Pt's himarcy' is in room and will assist pt with bathing/dressing. Mental Status/Objective Patient Orientation: Person, Place, Time, Situation ADL-Treatment Pt states that he went to bathroom prior to OT session and only required assist with transfer and SBA for balance during clothing manipulation. Pt agrees to shower. Pt's sabi' assisted pt with retrieving clothing from closet. Pt ambulated to bathroom using B UE platform FWW. SBA using AE to transfer into shower. Using grabbars and shower bench to complete own shower, long handle sponge for lower legs then fiance' dried lower legs. Using AE, for dressing when needed. SBA in stance to hike pants over hips. Sitting at sink, pt able to complete by self. Using AE to don/doff socks. Pt stated that he has no grabbars or tub seat. Will look at getting tub seat for home use, per pt. After therapy, pt sitting EOB with sabi' in room. Call light/phone in reach. All needs met in room. Therapy Code Descriptions/Definitions Functional [place] Measure: 0=Not Assessed/NA 4=Minimal Assistance 1=Total Assistance 5=Supervision or Setup 2=Maximal Assistance 6=Modified [place] 3=Moderate Assistance 7=Complete IndependenceSCALE: Activities may be completed with or without assistive devices. 1-Ilicyfoiup-ohbimuc completes the activity by him/herself with no assistance from a helper. 5-Set-up or Clean-up Assistance-helper sets up or cleans up; patient completes activity. [place] assists only prior to or following the activity. 4-Supervision or Touching Assistance-helper provides verbal cues and/or touching/steadying and/or contact guard assistance as patient completes activity. Assistance may be provided throughout the activity or intermittently. 3-Partial/Moderate Assistance-helper does LESS THAN HALF the effort. [place] lifts, holds or supports trunk or limbs, but provides less than half the effort. 2-Substantial/Maximal Assistance-helper does MORE THAN HALF the effort. [place] lifts or holds trunk or limbs and provides more than half the effort. 8-Gnbwkfuep-xlbmlr does ALL the effort. Patient does none of the effort to complete the activity. Or, the assistance of 2 or more helpers is required for the patient to complete the activity. If activity was not attempted, code reason: 7-Patient Refused. 9-Not Applicable-not attempted and the patient did not perform the activity before the current illness, exacerbation or injury. 10-Not Attempted due to Environmental Limitations-(lack of equipment, weather restraints, etc.). 88-Not Attempted due to Medical Conditions or Safety Concerns. Eating (QC): 6 (Pt demonstrates ability to complete by self.) Oral Hygiene (QC): 6 Bathing Location: L Arm, R Arm, L Upper Leg, R Upper Leg, L Lower Leg (including foot), R Lower Leg (including foot), Chest, Abdomen, Buttocks, Perineal Area Shower/Bathe Self (QC): 5 (Pt leanse side to side to cleanse buttocks.) Upper Body Dressing (QC): 5 Lower Body Dressing (QC): 4 (QC Footwear-6) Toileting Hygiene (QC): 4 Toilet Transfer (QC): 4 OT Short Term Goals Short Term Goals Upper Body Dressing(FIM): 3 Lower Body Dressing(FIM): 3 1=Demonstrate adherence to instructed precautions during ADL tasks. 2=Patient will verbalize/demonstrate understanding of assistive devices/modifications for ADL. 3=Patient will improve strength/tolerance for activity to enable patient to perform ADL's. OT Yarder Puncher Goals Yarder Puncher Goals Time Frame: Aug 20, 2019 Eating (QC): 6 (met-08/12/2019) Oral Hygiene (QC): 6 (met-08/12/2019) Shower/Bathe Self (QC): 5 (met-08/12/2019) Upper Body Dressing (QC): 6 (not met) Lower Body Dressing (QC): 6 (not met) On/Off Footwear (QC): 6 (met-08/12/2019) Toileting Hygiene (QC): 6 (not met) Toilet/Commode Transfer (QC): 6 (not met) Additional Goals: 1-Demonstrate ADL Tasks, 2-Verbalize Understanding, 3-ImproveStrength/Adonis 1=Demonstrate adherence to instructed precautions during ADL tasks. 2=Patient will verbalize/demonstrate understanding of assistive devices/modifications for ADL. 3=Patient will improve strength/tolerance for activity to enable patient to perform ADL's. OT Education/Plan Problem List/Assessment Assessment: Decreased Activ Tolerance, Decreased UE Strength, Impaired Self- Care Skills Discharge Recommendations Plan/Recommendations: Continue POC Therapy Discharge Recommendati: Post Acute OT (outpt) Equpiment Recommendations-D/C: Bath Chair, Sock Aide, Dressing Stick, Other, See Comments (grabbars) Treatment Plan/Plan of Care Patient would benefit from OT for education, treatment and training to promote independence in ADL's, mobility, safety and/or upper extremity function for ADL's. Plan of Care: ADL Retraining, Caregiver Training, Functional Mobility, Group Exercise/Act as Ind, UE Funct Exercise/Act Treatment Duration: Aug 20, 2019 Frequency: At least 5 of 7 days/Wk (IRF) Estimated Hrs Per Day: 1.5 hours per day Rehab Potential: Good Time/GCodes Start Time: 09:00 Stop Time: 10:00 Total Time Billed (hr/min): 60 Billed Treatment Time 1 visit-ADL 4 (60 min) MAYE WALTER Aug 12, 2019 10:25 POS
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
--- NOTE | 2019-08-12 14:42 | Therapy Group Daily Note ---
Therapy Daily Group Note Patient Education Topic Other List Below (handwashing, memory) Exercises LE Seated Exercise, UE Exercise Session Ratio (pt:therapist): 4:1 Goal of Session: Memory Strategies, UE/LE Strengthing, Other (list) (handwashing) Goal Met for this Session: Yes Pt Benefit of Group: Contributions to Others, Increased Functional Strength, Improved Cognition, Recognition of Peers, Socialization Other/Notes Pt ambulated with B UE platform FWW to [facility] for OT/PT group. Group consisted of introductions (name, building born in, makes you proud), socialization, B UE/LE seated exercises, education for handwashing and memory. Pt introduced self appropriately and actively listened to peers. Pt demonstrated ability to complete exercises without out difficulty. Pt acknowledged understanding of educational topics by giving personal strategies and ideas. Pt was able to match images during a memory activity and assisted peers when needed. After therapy, pt lying in bed with call light/phone in reach. All needs met in room. Start Time: 13:00 Stop Time: 14:15 Total Billed Treatment Time: 75 Total Billed Treatment 1-GRP MAYE WALTER Aug 12, 2019 14:42 POS
--- NOTE | 2019-08-12 14:46 | NUR ---
provided prayer and Communion.
[2019-08-12 15:57] VITALS: BP 131/78
[2019-08-12 18:03] VITALS: BP 131/78
--- NOTE | 2019-08-12 19:17 | NUR ---
bedside report received from NICK AYALA, assume care of pt
--- NOTE | 2019-08-12 19:44 | NUR ---
c/o to charo wrists, lt leg pain level 5/10 on numeric scale, Lortab 5 1 tab given
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
[2019-08-12 20:30] VITALS: BP 119/66
[2019-08-12] MEDS: lisINopril 20 MG (PRINIVIL) TABLET PO SCH (20:34)
--- NOTE | 2019-08-12 20:40 | NUR ---
rates pain 3/10 on numeric scale
[2019-08-13] MEDS: HYDROcodone/APAP 5 MG/325 MG (LORTAB) TAB PO PRN ×3 (01:33→13:31)
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
--- NOTE | 2019-08-13 02:09 | NUR ---
resting quietly in bed, pain level 0/1o on flacc scale
[2019-08-13 05:47] VITALS: BP 137/76
--- NOTE | 2019-08-13 06:45 | NUR ---
c/o charo wrist & lt leg pain, level 5/10 on numeric scale, Lortab 5 1 tab given
--- NOTE | 2019-08-13 07:15 | NUR ---
bedside report given to NICK AYALA, pain level 3/10 on numeric scale
[2019-08-13] MEDS ORDERED: ACHD5005 PO (08:22)
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
[2019-08-13] MEDS: ENOXAPARIN 40 MG/0.4 ML (LOVENOX) SYR SC SCH (09:00)
[2019-08-13] MEDS: NEO/POLY/BAC (NEOSPORIN) OINT 15 GM TUBE TOP SCH (09:00)
--- NOTE | 2019-08-13 09:08 | D/C HH Face to Face Order ---
D/C Face to Face Orders Reconcile Patient Problems Problems Reviewed?: Yes Instructions for Patient [facility], Patient Instructions/FollowUp: PCP Dr Blake Physician to follow Patient: Dr Blake Discharge Diet for Home: No Restrictions Patient Problems: Left femur fracture Left arm fracture Goals for Patient: Return to independent living Patient Data-Allergies,Ht & Wt Patient Allergies: Coded Allergies: cyclobenzaprine (Verified Allergy, Unknown, 07/30/19) Home Health Need/Face to Face Date of Face to Face: Aug 13, 2019 Clinical Findings: Generalized weakness and fatigue, Instability, Muscle weakness, Non or partial weight bearing, Pain with ambulation, Unsteady gait I have seen Pt [id number]: Yes Discharged To: Home Diagnosis/Conditions: Left femur fracture Left arm fracture Patient is Homebound due to: Umer fall risk due to instabilty, Muscle weakness , Pain w/ambulation Homebound Status Due to the above stated illness, injury or surgical procedure (medical condition or diagnosis) and associated clinical findings, the patient is homebound because of his/her inability to leave home except with aid of a supportive device and/or person AND leaving the home requires a considerable and taxing effort or is medically contraindicated. Pt req the following assistanc: Walker, Wheelchair Home Health Nursing Orders Home Health Services Order: Nursing Services, Archeologist Classical-Evaluate & Treat, Physical Therapy-Evaluate & Treat Certify Stmt I certify that this patient is under my care and that I, a nurse practitioner or a physician; a neurosurgical physician assistant working with me, had a face to face encounter that - meets the physician face to face encounter requirements with this patient as dated. YESENIA BERRY DO Aug 13, 2019 09:08 POS
--- NOTE | 2019-08-13 10:17 | NUR ---
provided prayer and Communion.
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
--- NOTE | 2019-08-13 11:40 | Diagnostic Imaging Report ---
INDICATION: Femur fracture. Postop. COMPARISON: 07/31/2019 FINDINGS: Four radiographic views of the left femur were obtained and show stable postsurgical changes of interval ORIF. Long intramedullary ada is seen traversing the left femoral shaft. Proximal and distal anchor screws are noted. Femoral fracture fragments are in stable position. There may be some early surrounding callus formation. Fracture lines otherwise remain conspicuous. No new acute fracture or dislocation is seen. No unexpected radiopaque foreign bodies are identified. Joint spaces are maintained. IMPRESSION: 1. Perhaps early partial interval healing in regards to previously described left femoral shaft fracture. Dictated by: Dictated on workstation # [id number]
--- NOTE | 2019-08-13 11:54 | Diagnostic Imaging Report ---
INDICATION: Fracture, follow up. TECHNIQUE: Two views of the left wrist. CORRELATION STUDY: 07/30/2019. FINDINGS: Cast material has been placed obscuring detail. The intra-articular distal left radius fracture appears to demonstrate slight interval healing and slight sclerosis demonstrated. Alignment appears to be relatively anatomic. There does appear to be perhaps slight bony resorption and increased diastasis at the mildly displaced ulnar styloid process fracture. No new bony abnormality. IMPRESSION: 1. Perhaps slight interval healing changes about the intra-articular distal left radius fracture. Very slight increased diastasis is suggested at the mildly displaced ulnar styloid process fracture. Dictated by: Dictated on workstation # [id number]
--- NOTE | 2019-08-13 11:59 | Therapy Team Discharge Summary ---
Therapy Discharge Summary Discharge Recommendations Date of Discharge Occupational Therapy Pt admitted with L femur fracture, L radial fracture, R wrist sprain. Pt completed bathing with min A, LB dressing with mod A, and footwear with TD. Pt and OT worked towards IND within I/ADLs with functional activities and ADLs, UE strengthening, AE training and safety education. Pt's safety awareness acted as hindrance, pt somewhat impulsive and moves with quick movements; pt slows upon cues. 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 Upon d/c, pt s/u (to cover casts) with showering tasks with shower bench, min A with LB dressing, and IND with footwear with use of sock aide. Pt d/c OT services with AE equipment recommendations of: sock aide, ruling machine feeder, dressing stick, shower chair, grab bars within shower, and long handled sponge for bathing. Pt to d/c OT services. Decreased Activ Tolerance, Decreased UE Strength, Impaired Self-Care Skills PT Stem Cleaning Machine Feeder Goals Stem Cleaning Machine Feeder Goals PT Stem Cleaning Machine Feeder Goals Time Frame: Aug 20, 2019 Roll Left to Right (QC): 6 Sit to Lying (QC): 6 Lying-Sitting on Side/Bed(QC): 6 Sit to Stand (QC): 6 Chair/Dkd-up-Lsdln Xfer(QC): 6 Car Transfer (QC): 6 Walk 10 feet (QC): 6 Walk 10ft-Uneven Surface(QC): 6 Walk 50ft with 2 Turns (QC): 6 Walk 150 ft (QC): 6 Gait Assistive Device: FWW ( with platform) 1 Step (curb) (QC): 6 4 Steps (QC): 6 12 Steps (QC): 6 OT Stem Cleaning Machine Feeder Goals Stem Cleaning Machine Feeder Goals Time Frame: Aug 20, 2019 Eating (FIM): 6 Eating (QC): 6 (met-08/12/2019) Oral Hygiene (QC): 6 (met-08/12/2019) Shower/Bathe Self (QC): 5 (met-08/12/2019) Upper Body Dressing (QC): 6 (not met) Lower Body Dressing (QC): 6 (not met) On/Off Footwear (QC): 6 (met-08/12/2019) Toileting(FIM): 6 Toileting Hygiene (QC): 6 (not met) Toilet/Commode Transfer (QC): 6 (not met) Additional Goals: 1-Demonstrate ADL Tasks, 2-Verbalize Understanding, 3-ImproveStrength/Adonis 1=Demonstrate adherence to instructed precautions during ADL tasks. 2=Patient will verbalize/demonstrate understanding of assistive devices/modifications for ADL. 3=Patient will improve strength/tolerance for activity to enable patient to perform ADL's. VINCENT PRECIADO OTR Aug 13, 2019 11:59 POS
--- NOTE | 2019-08-13 12:05 | Diagnostic Imaging Report ---
PATIENT HISTORY: Follow-up right wrist sprain. TECHNIQUE: Four views of the right wrist. COMPARISON: 08/01/2019 FINDINGS: There is a small ossific fragment adjacent to the radial styloid, which could represent a displaced avulsion fracture. Otherwise, alignment appears normal. Joint spaces are preserved. No cortical erosions are seen. No other fractures are identified. IMPRESSION: Small ossific fragment adjacent to the right radial styloid may represent a displaced avulsion fracture. Dictated by: Dictated on workstation # [id number]
--- NOTE | 2019-08-13 12:35 | NUR ---
16 belinda removed from left hip and leg incision without incidence. Incisions well approximated. Mastisol applied to incisional sites, steri-strips applied to uppermost incision. Care instructions given. Pt tolerates procedure well, voices understanding of incisional care until follow up appointment with Dr. Lew on 08/27/2019 and 1300.
--- NOTE | 2019-08-13 13:27 | NUR ---
Patient is discharged to return home today with his parents and fiance as before. Coordinated post hospital services with patient/father choice agencies through [facility]. HHC: Finalized with [facility] for RN and PT/OT. DME: Finalized with [facility] for FWW with bilateral arm platforms, shower chair, and wheelchair. Updated patient, father Agusto will brick picker equipment from agency. Hospital PT Medical Attendant has agreed to loan the therapy FWW until HME can provide what is needed due to a delay in getting the platforms patient requires. Patient [employer] claim #[id number] and Program Therapist name Miquel Hansen @ [phone] was provided to all involved for post hospital followup, including on patient discharge packet. Agusto indicates he has men available to assist getting patient into the home. They intend to use wheelchair and back patient up the steps. Agusto verbalized no concerns about home access with wheelchair. 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
--- NOTE | 2019-08-13 14:47 | Progress Note - Ortho ---
Progress Note Subjective Date of Exam 08/13/19 Chief Complaint POD#14 closed IM rodding left femoral shaft fracture HPI/Events since last exam Mr Fuller is doing well in rehabilitation. Continues to ambulate partial weightbearing on the left with a walker. Right wrist splinted and left wrist ca sted Review of Systems Reviewed and no additions or changes Allergies: Coded Allergies: cyclobenzaprine (Verified Allergy, Unknown, 07/30/19) Home Meds Active Scripts Hydrocodone Bit/Acetaminophen (Hydrocodone/Acetaminophen 5/325mg Tablet) 1 Tab Tab, 1 TAB PO Q4H PRN for PAIN-MODERATE, #30 TAB Prov:BERRYYESENIA DO 08/13/19 Reported Medications Baclofen (Baclofen) 10 Mg Tablet, 10 MG PO TID PRN for MUSCLE SPASMS, TAB 07/31/19 [place]roberts 3 Polyunsat Fatty Acids (Fish Oil 1,000 mg Capsule) 1,000 Mg Cap, 1000 MG PO HS, CAP 07/31/19 Loratadine (Claritin) 10 Mg Tablet, 10 MG PO HS, TAB 07/31/19 Fenofibric Acid (Choline) (Fenofibric Acid) 135 Mg Capsule.dr, 135 MG PO HS, CAP 07/31/19 Lisinopril (Lisinopril) 20 Mg Tablet, 20 MG PO HS, TAB 07/31/19 Discontinued Reported Medications Oxycodone HCl/Acetaminophen (Percocet 5-325 mg Tablet) 1 Each Tablet, 1 TAB PO Q6H PRN for PAIN-MODERATE, TAB 07/31/19 Objective Exam Constitutional: [] HEENT: [] Neck: [] Cardiovascular: [] Respiratory: [] Gastrointestinal: [] Genitourinary: [] Skin: [] Back/Spine: [] Extremities: [] Of cast left wrist. Splint right wrist. No problems left lower extremity with wounds healing well Neurologic: [] Psychiatric: [] Hematologic/lymphatic/immunologic: [] Vital Signs Vital Signs Date Time Temp Pulse Resp B/P (MAP) Pulse Ox O2 Delivery O2 Flow Rate FiO2 08/13/19 09:00 Room Air 08/13/19 05:47 36.3 86 18 137/76 (96) 95 Room Air 08/12/19 20:35 Room Air 08/12/19 20:30 89 16 119/66 (83) 98 Room Air 08/12/19 18:03 36.4 90 16 131/78 (95) 98 Room Air 08/12/19 15:57 36.4 90 16 131/78 (95) 98 Room Air I & O 08/13/19 07:00 Intake Total 3680 ml Output Total 4190 ml Balance -510 ml Imaging X-rays were obtained of the left wrist in the cast which shows continued good alignment the distal radius fracture and ulnar styloid fracture this mildly displaced Right wrist shows no acute fractures Left femur shows good position of the ada and screws as well as the comminuted fracture Assessment and Plan Assessment 2 weeks postop Problem List Unchanged Plan Continue walker ambulation partial weightbearing on the left. Continue splint left wrist. Continue splint right wrist. Final Diagonsis Comminuted fracture left femoral shaft status post IM rodding Interarticular fracture left distal radius in good position with mildly displaced ulnar styloid fracture Sprain right wrist Level of the visit: Level 3 Clinical Quality Measures DVT/VTE Risk/Contraindication: Risk Factor Score Per Nursin RFS Level Per Nursing on Admit: 4+=Very High MAGALI LI MD Aug 13, 2019 14:47 POS
[2019-08-13 15:05] VITALS: BP 137/76
== END 2019-08-13 15:00 | disposition home health service (06) | DRG 561 ==
PROVIDERS: ADMIT Internal Medicine; ATTEND Internal Medicine
DX: S72.302D Unspecified fracture of shaft of left femur, subsequent encounter for closed fracture with routine healing (principal); S52.572D Other intraarticular fracture of lower end of left radius, subsequent encounter for closed fracture with routine healing; S52.612D Displaced fracture of left ulna styloid process, subsequent encounter for closed fracture with routine healing; S63.501D Unspecified sprain of right wrist, subsequent encounter; E78.5 Hyperlipidemia, unspecified; I10 Essential (primary) hypertension; D72.829 Elevated white blood cell count, unspecified; S36.9 Injury of unspecified intra-abdominal organ; T14.8XXD Other injury of unspecified body region, subsequent encounter; M54.40 Lumbago with sciatica, unspecified side; R19.7 Diarrhea, unspecified; F41.9 Anxiety disorder, unspecified; V43.52XD Car driver injured in collision with other type car in traffic accident, subsequent encounter
CPT/HCPCS: 36415; 71046; 73100; 73110; 73552; 80053; 81000; 85025; 85027

== ENCOUNTER → 2019-08-27 | Outpatient (CLI) | payer OTHER ==
[~2019-08-27] MED LIST changes: +ACHD5005 PO; +ENOX40DI8 SC; +NORM2DIS3 IV; +ONDA4TAB11 PO
--- NOTE | 2019-08-27 14:22 | Diagnostic Imaging Report ---
EXAMINATION: Bilateral wrists at 1:45 p.m. INDICATION: Wrist pain. Three views of the left wrist and four views of the right wrist were obtained. FINDINGS: The previous bilateral wrist exam performed on 07/30/2019 noted an avulsion fracture of the base of the ulnar styloid and a nondisplaced fracture extending through the base of the radial styloid. Those findings are again evident and do not seem to have changed significantly. There is little healing callus formation about both fracture sites. The previous right wrist exam failed to show any sign of an acute abnormality. However, on the subsequent right wrist exam of 08/01/2019, there was a question of an avulsion fracture involving the triquetrum. The right wrist exam of 08/13/2019 also noted a smooth calcific density adjacent to the radial styloid. The possibility that this was related to an avulsion fracture was raised. On this study, the calcific density adjacent to the radial styloid of the right wrist is again evident and no different. The suspected fracture of the triquetrum is not well visualized. No other fracture or acute bony abnormality is noted. The soft tissues are unremarkable. IMPRESSION: 1. The fractures of the ulnar styloid and radial styloid on the left seen previously are again evident and no different. 2. The smooth calcific density adjacent to the radial styloid of the right radius is also unchanged when compared to the prior exam. 3. There is no acute bony abnormality appreciated. Dictated by: Dictated on workstation # [id number]
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
== END ==
LOC: ORTHO 12:57
PROVIDERS: ATTEND Orthopaedic Surgery
DX: S63.521D Sprain of radiocarpal joint of right wrist, subsequent encounter (principal); S52.502D Unspecified fracture of the lower end of left radius, subsequent encounter for closed fracture with routine healing
CPT/HCPCS: 29075; 73552

== ENCOUNTER → 2019-09-10 | Outpatient (CLI) | payer OTHER ==
--- NOTE | 2019-09-10 13:54 | Diagnostic Imaging Report ---
INDICATION: Fracture. Four views were obtained. FINDINGS: There has been open reduction and internal fixation of a left femur fracture with intramedullary ada. Fracture fragments are near anatomic in alignment. There appears to be some minimal callus formation. IMPRESSION: Stable postsurgical changes in the left femur as described. Dictated by: Dictated on workstation # [id number]
--- NOTE | 2019-09-10 14:08 | Diagnostic Imaging Report ---
INDICATION: Fracture. FINDINGS: There is a nondisplaced fracture through the radial styloid. There is an ulnar styloid fracture as well. Fracture fragments remain in near anatomic alignment. There is no significant callus formation. IMPRESSION: Unchanged fractures of the distal left radius and ulna as described. Dictated by: Dictated on workstation # [id number]
== END ==
LOC: ORTHO 13:09
PROVIDERS: ATTEND Orthopaedic Surgery
DX: S63.521A Sprain of radiocarpal joint of right wrist, initial encounter (principal); S52.502A Unspecified fracture of the lower end of left radius, initial encounter for closed fracture; S72.352A Displaced comminuted fracture of shaft of left femur, initial encounter for closed fracture; Z98.890 Other specified postprocedural states; X58.XXXA Exposure to other specified factors, initial encounter
CPT/HCPCS: 73110; 73552

== ENCOUNTER → 2019-09-18 | Outpatient (CLI) | payer OTHER ==
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
== END ==
LOC: RAD 07:21
PROVIDERS: ATTEND Orthopaedic Surgery
DX: S63.501A Unspecified sprain of right wrist, initial encounter (principal); S50.11XA Contusion of right forearm, initial encounter
CPT/HCPCS: 73221

== ENCOUNTER → 2019-10-01 | Outpatient (CLI) | payer OTHER ==
--- NOTE | 2019-10-01 09:47 | Diagnostic Imaging Report ---
INDICATION: Left wrist fracture, follow-up. TIME OF EXAM: 9:07 AM Comparison is made with prior radiograph from 09/10/2019. FINDINGS: There is some blurring of the fracture of the distal radius consistent with healing. Minimal residual lucency is present. Alignment is anatomic. Fracture through the ulnar styloid is unchanged with no significant callus formation seen. Very slight distraction at the fracture site is again noted. Carpus and metacarpals are intact. IMPRESSION: No significant change in the ulnar styloid fracture without significant callus formation. There is healing of the distal radius fracture although fracture line remains barely visible. Dictated by: Dictated on workstation # [id number]
--- NOTE | 2019-10-01 09:48 | Diagnostic Imaging Report ---
INDICATION: Femur fracture, follow-up. Time of exam 9:09 AM Correlation is made with prior radiographs from 09/10/2019. Intramedullary ada with proximal and distal screws transfixing a midshaft femur fracture is again seen. Fracture line does remain partially visible. There is some callus formation. Overall appearance is similar to prior. Alignment is anatomic. IMPRESSION: ORIF left femur fracture. Callus formation is present, similar to prior study. Fracture lines remain clearly visible. Dictated by: Dictated on workstation # [id number]
== END ==
LOC: ORTHO 08:49
PROVIDERS: ATTEND Orthopaedic Surgery
DX: S72.352D Displaced comminuted fracture of shaft of left femur, subsequent encounter for closed fracture with routine healing (principal); S52.612D Displaced fracture of left ulna styloid process, subsequent encounter for closed fracture with routine healing
CPT/HCPCS: 73110; 73552

== ENCOUNTER 2019-10-21 20:25 | Emergency (ER) | payer OTHER ==
[~2019-10-21] VITALS: Ht 172 cm; Wt 102.9 kg
[2019-10-21 20:50] LABS: BASOPHILS % (AUTO) 0 % (0-10); EOSINOPHILS % (AUTO) 0 % (0-10); HEMATOCRIT 43 % (40-54); HEMOGLOBIN 15.8 G/DL (13.3-17.7); LYMPHOCYTES % (AUTO) 6 % (12-44); MEAN CORPUSCULAR HEMOGLOBIN 28 PG (25-34); MEAN CORPUSCULAR HGB CONC 37 G/DL (32-36); MEAN CORPUSCULAR VOLUME 78 FL (80-99); MEAN PLATELET VOLUME 10.7 FL (7.4-10.4); MONOCYTES # (AUTO) 0.2 X 10^3 (0.0-1.0); MONOCYTES % (AUTO) 1 % (0-12); NEUTROPHILS # (AUTO) 14.7 X 10^3 (1.8-7.8); NEUTROPHILS % (AUTO) 92 % (42-75); PLATELET COUNT 396 10^3/uL (130-400); RED CELL DISTRIBUTION WIDTH 13.3 % (10.0-14.5); WHITE BLOOD COUNT 15.9 10^3/uL (4.3-11.0)
[2019-10-21] MEDS ORDERED: NS 100 ML (IVPB) BAG IV ONE (21:00)
[2019-10-21] MEDS ORDERED: HOLD METFORMIN - RECEIVED CONTRAST 20 ML VIAL IV SCH (21:00)
[2019-10-21] MEDS ORDERED: CATHETER FLUSH 10 ML SYR IV PRN (21:00)
[2019-10-21] MEDS ORDERED: ENOXAPARIN 100 MG/1 ML (LOVENOX) SYR SC ONE (21:00)
[2019-10-21] MEDS ORDERED: IOHEXOL 350 MG/ML 100 ML (OMNIPAQUE 350) VIAL IV ONE (21:00)
[2019-10-21 21:07] LABS: CARBON DIOXIDE 17 MMOL/L (21-32); CHLORIDE 103 MMOL/L (98-107); CREATININE SERUM 1.38 MG/DL (0.60-1.30); POTASSIUM 4.1 MMOL/L (3.6-5.0); SODIUM 138 MMOL/L (135-145)
--- NOTE | 2019-10-21 21:07 | Diagnostic Imaging Report ---
CHEST 1 VIEW, AP/PA ONLY Indication: Shortness of breath Comparison: 08/06/2019 Findings: Asymmetric elevation of the right hemidiaphragm has developed. Visualized lungs are clear. No pleural effusion or pneumothorax. Stable cardiomediastinal silhouette. Posterior lower lobes are poorly evaluated by portable radiography. Impression: 1. No acute cardiopulmonary process by portable radiography. Dictated by: Dictated on workstation # [id number]
[2019-10-21 21:08] LABS: ALANINE AMINOTRANSFERASE 19 U/L (0-55); ALBUMIN 4.8 GM/DL (3.2-4.5); ALKALINE PHOSPHATASE 78 U/L (40-136); BILIRUBIN,TOTAL 0.3 MG/DL (0.1-1.0); BUN/CREATININE RATIO 15; CALCIUM 9.9 MG/DL (8.5-10.1); GFR ESTIMATED 55; GLUCOSE 275 MG/DL (70-105); TOTAL PROTEIN 8.1 GM/DL (6.4-8.2)
[2019-10-21 21:12] LABS: BAND NEUTROPHILS 5 %; LYMPHOCYTES % (MANUAL) 4 %; MONOCYTES % (MANUAL) 2 %; NEUTROPHILS % (MANUAL) 89 %; RBC MORPH NORMAL; TOXIC GRANULATION/VACUOLAZATIO 1+
[2019-10-21] MEDS ORDERED: NS IV 1000 ML 1,000 ML IV SCH (21:15)
--- NOTE | 2019-10-21 21:26 | Diagnostic Imaging Report ---
PROCEDURE: CT angiography Chest TECHNIQUE: After intravenous administration of contrast, thin section axial CT angiography of the chest was performed. 3D MIP reconstructions were made. All CT scans use one or more of the following dose optimizing techniques: automated exposure control, MA and/or KvP adjustment based on a patient size and exam type, or iterative reconstruction. INDICATION: Shortness of breath after recent surgery COMPARISON: None available. FINDINGS: Vasculature: No pulmonary emboli to the level of the segmental arteries. Suboptimal opacification of the segmental and subsegmental arteries results in limited assessment of these regions. No features of right ventricular strain or pulmonary hypertension. Thoracic aorta is normal in caliber. No aortic dissection or pseudoaneurysm. Heart and mediastinum: Visualized thyroid is normal. No supraclavicular, axillary, or intra-thoracic lymphadenopathy. The heart is normal in size without pericardial effusion. Pleura: No pleural effusion or pneumothorax. Lungs and airway: No endoluminal lesion in the trachea or central bronchi. No pulmonary mass, nodule or consolidation. Subsegmental atelectasis within the right lower lobe. Upper abdomen: Allowing for the phase of contrast, no acute abnormality in the upper abdomen is seen. Musculoskeletal: No concerning osseous lesion. IMPRESSION: 1. No pulmonary emboli to the level of the segmental arteries. Suboptimal opacification results in limited assessment of the more distal pulmonary arteries. 2. No acute aortic syndrome. 3. No acute pulmonary pathology. Right lower lobe subsegmental atelectasis is present. Dictated by: Dictated on workstation # [id number]
[2019-10-21 22:16] LABS: BILIRUBIN,URINE NEGATIVE (NEGATIVE); CLARITY,URINE CLEAR; COLOR,URINE YELLOW; GLUCOSE, URINE (UA) 3+ (NEGATIVE); KETONES,URINE TRACE (NEGATIVE); LEUKOCYTE ESTERASE ,URINE NEGATIVE (NEGATIVE); NITRITE,URINE NEGATIVE (NEGATIVE); PH,URINE 5.5 (5-9); PROTEIN,URINE NEGATIVE (NEGATIVE)
[2019-10-21 22:26] LABS: BACTERIA,URINE TRACE /HPF
[2019-10-21 22:28] LABS: AMPHETAMINE SCREEN, URINE NEGATIVE (NEGATIVE); BARBITURATE SCREEN URINE NEGATIVE (NEGATIVE); BENZODIAZEPINES SCREEN URINE NEGATIVE (NEGATIVE); CANNABINOID SCREEN, URINE NEGATIVE (NEGATIVE); COCAINE SCREEN URINE NEGATIVE (NEGATIVE); METHADONE STAT NEGATIVE (NEGATIVE); METHAMPHETAMINE SCREEN URINE S NEGATIVE (NEGATIVE); OPIATE SCREEN URINE NEGATIVE (NEGATIVE); OXYCODONE STAT POSITIVE (NEGATIVE); PROPOXYPHENE STAT NEGATIVE (NEGATIVE); TRICYCLIC ANTIDEPRESSANTS SCRE NEGATIVE (NEGATIVE)
--- NOTE | 2019-10-21 22:58 | ED Respiratory ---
General Chief Complaint: Respiratory Problems Stated Complaint: POST SURGERY SOB Nursing Triage Note: PT PRESENTS TO THE ED C/O SOB AFTER OTHRO SURG. THIS AFTERNOON, DENIES CP OR NV. STATES HIS HEART FEELS LIKE IT IS RACING Source: patient Exam Limitations: no limitations History of Present Illness Date Seen by Provider: Oct 21, 2019 Time Seen by Provider: 20:41 Initial Comments 49-year-old male who presents to the emergency room with complaints of shortness of breath after orthopedic surgery this afternoon. He denies pain, discomfort, nausea and vomiting. He did call the surgeon up in [place] and he reports that it is most likely due to the nerve block that they use for his surgery but he that he should be evaluated. He is alert and oriented on arrival to the emergency room. His heart rate was in the 120s and his oxygen saturation ranges from 92-94% on room air. Allergies and Home Medications Allergies Coded Allergies: cyclobenzaprine (Verified Allergy, Unknown, 07/30/19) Home Medications Baclofen 10 Mg Tablet, 10 MG PO TID PRN for MUSCLE SPASMS, (Reported) Fenofibric Acid (Choline) 135 Mg Capsule.dr, 135 MG PO HS, (Reported) Hydrocodone Bit/Acetaminophen 1 Tab Tab, 1 TAB PO Q4H PRN for PAIN-MODERATE Prescribed by: YESENIA BERRY on 08/13/19 0822 Lisinopril 20 Mg Tablet, 20 MG PO HS, (Reported) Loratadine 10 Mg Tablet, 10 MG PO HS, (Reported) [place] 3 Polyunsat Fatty Acids 1,000 Mg Cap, 1,000 MG PO HS, (Reported) Past Evbcejh-[id number]-Xshlwt Hx Patient Social History Alcohol Use: Denies Use Recreational Drug Use: No Smoking Status: Never a Smoker Recent Foreign Travel: No Contact w/Someone Who Travel: No Recent Infectious Disease Expo: No Recent Hopitalizations: No Physical Abuse: No Sexual Abuse: No Mistreated: No Fear: No Immunizations Up To Date Tetanus Booster (TDap): Less than 5yrs PED Vaccines UTD: Yes Seasonal Allergies Seasonal Allergies: No Past Medical History Surgeries: Yes (Left Femur, R WRIST) Orthopedic Respiratory: No Currently Using CPAP: No Currently Using BIPAP: No Cardiac: Yes (HIGH TRIGLYCERIDES) High Cholesterol, Hypertension Neurological: No Reproductive Disorders: No Sexually Transmitted Disease: No HIV/AIDS: No Genitourinary: No Gastrointestinal: No Musculoskeletal: Yes (SCIATICA PAIN) Chronic Back Pain Endocrine: No HEENT: No Cancer: No Psychosocial: No Integumentary: No Blood Disorders: No Adverse Reaction/Blood Tranf: No Family Medical History No Pertinent Family Hx Physical Exam Vital Signs - First Documented 10/21/19 20:29 Temp 36.0 Pulse 123 Resp 20 B/P (MAP) 140/108 (119) Pulse Ox 99 O2 Delivery OxyMask O2 Flow Rate 6.00 Capillary Refill : Less Than 3 Seconds Height: '" Weight: lbs. oz. kg; 34.00 BMI Method: Progress/Results/Core Measures Suspected Sepsis Recent Fever Within 48 Hours: No Infection Criteria Present: None New/Unexplained Altered Menta: No Sepsis Screen: No Definite Risk SIRS Temperature: Pulse: 123 Respiratory Rate: 20 Laboratory Tests 10/21/19 20:43: White Blood Count 15.9H Blood Pressure 140 /108 Mean: 119 Laboratory Tests 10/21/19 20:43: Creatinine 1.38H, Platelet Count 396, Total Bilirubin 0.3 Results/Orders Lab Results Laboratory Tests Test 10/21/19 20:43 10/21/19 22:06 Range/Units White Blood Count 15.9 H 4.3-11.0 10^3/uL Red Blood Count 5.56 4.35-5.85 10^6/uL Hemoglobin 15.8 13.3-17.7 G/DL Hematocrit 43 40-54 % Mean Corpuscular Volume 78 L 80-99 FL Mean Corpuscular Hemoglobin 28 25-34 PG Mean Corpuscular Hemoglobin Concent 37 H 32-36 G/DL Red Cell Distribution Width 13.3 10.0-14.5 % Platelet Count 396 130-400 10^3/uL Mean Platelet Volume 10.7 H 7.4-10.4 FL Neutrophils (%) (Auto) 92 H 42-75 % Lymphocytes (%) (Auto) 6 L 12-44 % Monocytes (%) (Auto) 1 0-12 % Eosinophils (%) (Auto) 0 0-10 % Basophils (%) (Auto) 0 0-10 % Neutrophils # (Auto) 14.7 H 1.8-7.8 X 10^3 Lymphocytes # (Auto) 1.0 1.0-4.0 X 10^3 Monocytes # (Auto) 0.2 0.0-1.0 X 10^3 Eosinophils # (Auto) 0.0 0.0-0.3 10^3/uL Basophils # (Auto) 0.0 0.0-0.1 10^3/uL Neutrophils % (Manual) 89 % Lymphocytes % (Manual) 4 % Monocytes % (Manual) 2 % Band Neutrophils 5 % Toxic Granulation 1+ Blood Morphology Comment NORMAL D-Dimer 0.44 0.00-0.49 UG/ML Sodium Level 138 135-145 MMOL/L Potassium Level 4.1 3.6-5.0 MMOL/L Chloride Level 103 98-107 MMOL/L Carbon Dioxide Level 17 L 21-32 MMOL/L Anion Gap 18 H 5-14 MMOL/L Blood Urea Nitrogen 21 H 7-18 MG/DL Creatinine 1.38 H 0.60-1.30 MG/DL Estimat Glomerular Filtration Rate 55 BUN/Creatinine Ratio 15 Glucose Level 275 H 70-105 MG/DL Calcium Level 9.9 8.5-10.1 MG/DL Corrected Calcium 8.5-10.1 MG/DL Total Bilirubin 0.3 0.1-1.0 MG/DL Aspartate Amino Transf (AST/SGOT) 14 5-34 U/L Alanine Aminotransferase (ALT/SGPT) 19 0-55 U/L Alkaline Phosphatase 78 40-136 U/L Total Protein 8.1 6.4-8.2 GM/DL Albumin 4.8 H 3.2-4.5 GM/DL Urine Color YELLOW Urine Clarity CLEAR Urine pH 5.5 5-9 Urine Specific [place] 1.015 L 1.016-1.022 Urine Protein NEGATIVE NEGATIVE Urine Glucose (UA) 3+ H NEGATIVE Urine Ketones TRACE H NEGATIVE Urine Nitrite NEGATIVE NEGATIVE Urine Bilirubin NEGATIVE NEGATIVE Urine Urobilinogen 0.2 < = 1.0 MG/DL Urine Leukocyte Esterase NEGATIVE NEGATIVE Urine RBC (Auto) NEGATIVE NEGATIVE Urine RBC NONE /HPF Urine WBC NONE /HPF Urine Crystals NONE /LPF Urine Bacteria TRACE /HPF Urine Casts NONE /LPF Urine Mucus NEGATIVE /LPF Urine Culture Indicated NO Urine Opiates Screen NEGATIVE NEGATIVE Urine Oxycodone Screen POSITIVE H NEGATIVE Urine Methadone Screen NEGATIVE NEGATIVE Urine Propoxyphene Screen NEGATIVE NEGATIVE Urine Barbiturates Screen NEGATIVE NEGATIVE Ur Tricyclic Antidepressants Screen NEGATIVE NEGATIVE Urine Phencyclidine Screen NEGATIVE NEGATIVE Urine Amphetamines Screen NEGATIVE NEGATIVE Urine Methamphetamines Screen NEGATIVE NEGATIVE Urine Benzodiazepines Screen NEGATIVE NEGATIVE Urine Cocaine Screen NEGATIVE NEGATIVE Urine Cannabinoids Screen NEGATIVE NEGATIVE My Orders Orders - JESSICA ARROYO Comprehensive Metabolic Panel (10/21/19 20:41) Ed Iv/Invasive Line Start (10/21/19 20:41) Cbc With Automated Diff (10/21/19 20:41) Chest 1 View, Ap/Pa Only (10/21/19 20:41) Ct Angio Chest W (10/21/19 20:41) Iohexol Injection (Omnipaque 350 Mg/Ml 1 (10/21/19 21:00) Received Contrast (Hold Metformin- Contr (10/21/19 21:00) Sodium Chloride Flush (Catheter Flush Sy (10/21/19 21:00) Ns (Ivpb) (Sodium Chloride 0.9% Ivpb Bag (10/21/19 21:00) Enoxaparin Injection (Lovenox Injection) (10/21/19 21:00) Manual Differential (10/21/19 20:43) Ns Iv 1000 Ml (Sodium Chloride 0.9%) (10/21/19 21:15) Fibrin Degradation Products (10/21/19 22:01) Ua Culture If Indicated (10/21/19 22:01) Drug Screen Stat (Urine) (10/21/19 22:01) Medications Given in ED Current Medications Medications Dose Ordered Sig/Nata Route Start Time Stop Time Status Last Admin Dose Admin Enoxaparin Sodium 100 mg ONCE ONCE SC 10/21/19 21:00 10/21/19 21:01 DC 10/21/19 21:10 100 MG Iohexol 100 ml ONCE ONCE IV 10/21/19 21:00 10/21/19 21:01 DC 10/21/19 21:08 83 ML Sodium Chloride 10 ml NEEDED PRN IV 10/21/19 21:00 10/21/19 21:08 10 ML Sodium Chloride 100 ml ONCE ONCE IV 10/21/19 21:00 10/21/19 21:01 DC 10/21/19 21:08 80 ML Vital Signs/I&O 10/21/19 20:29 Temp 36.0 Pulse 123 Resp 20 B/P (MAP) 140/108 (119) Pulse Ox 99 O2 Delivery OxyMask O2 Flow Rate 6.00 Capillary Refill : Less Than 3 Seconds Blood Pressure Mean: 119 Departure Impression Primary Impression: Adverse effect of peripheral nerve- and plexus-blocking anesthetics Disposition: 01 HOME, SELF-CARE Condition: Stable/Unchanged Departure-Patient Inst. Decision time for Depature: 22:43 Referrals: XIOMARA MOODY MD (PCP/Family) Primary Care Physician Patient Instructions: Nerve Blocks Add. Discharge Instructions: Continue medications as previously prescribed. Call tomorrow morning to schedule an appointment with [facility]. Return back to the emergency room for worsening symptoms or concerns as needed. All discharge instructions reviewed with patient and/or family. Voiced understanding. JESSICA ARROYO Oct 21, 2019 22:58
[2019-10-21 23:38] VITALS: BP 153/105
== END 2019-10-21 23:39 | disposition home or self-care (01) ==
LOC: EDUNIT# 20:25 → ER 20:26
DX: R06.02 Shortness of breath (principal); T41.3X5A Adverse effect of local anesthetics, initial encounter; I10 Essential (primary) hypertension; E78.00 Pure hypercholesterolemia, unspecified; Z88.8 Allergy status to other drugs, medicaments and biological substances
CPT/HCPCS: 36415; 71045; 71275; 80053; 80306; 81000; 85007; 85027; 85379; 96360; 96372

== ENCOUNTER → 2019-10-29 | Outpatient (CLI) | payer OTHER ==
--- NOTE | 2019-10-29 14:18 | Diagnostic Imaging Report ---
EXAMINATION: Left femur at 12:42 p.m. INDICATION: Fracture of left femur. TECHNIQUE: AP and lateral views were obtained. FINDINGS: The prior exam of 10/01/2019 noted an intramedullary ada securing a comminuted slightly displaced fracture of the midshaft of the femur. On this study, the orthopedic hardware remains in good position. The main fracture fragments seem unchanged in alignment. There is minimally greater callus formation than noted on the prior exam. There is no fracture or acute bony abnormality noted. The hip and knee joints are fairly well maintained. The soft tissues are unremarkable. IMPRESSION: 1. The post-traumatic and postsurgical changes involving the left femur seen previously are again evident. The main fracture fragments remain in good position and there may be slightly greater healing callus formation present. 2. There is no acute abnormality identified. Dictated by: Dictated on workstation # [id number]
== END ==
LOC: ORTHO 12:27
PROVIDERS: ATTEND Orthopaedic Surgery
DX: S63.521D Sprain of radiocarpal joint of right wrist, subsequent encounter (principal); S52.502D Unspecified fracture of the lower end of left radius, subsequent encounter for closed fracture with routine healing
CPT/HCPCS: 73552

== ENCOUNTER 2019-11-01 13:35 | Outpatient (RCR) | payer OTHER | END 2019-12-18 10:40 | disposition home or self-care (01) | PROVIDERS: ATTEND Orthopaedic Surgery | DX: S52.502D Unspecified fracture of the lower end of left radius, subsequent encounter for closed fracture with routine healing (principal); S72.352D Displaced comminuted fracture of shaft of left femur, subsequent encounter for closed fracture with routine healing; S63.521D Sprain of radiocarpal joint of right wrist, subsequent encounter ==

== ENCOUNTER 2020-03-11 13:18 | Outpatient (RCR) | payer OTHER | END 2020-03-11 15:10 | disposition home or self-care (01) | PROVIDERS: ATTEND Orthopaedic Surgery Hand Surgery | DX: Z98.890 Other specified postprocedural states (principal) ==

== ENCOUNTER → 2022-04-08 | Outpatient (CLI) | payer OTHER ==
[~2022-04-08] MED LIST changes: -LISI-552 PO; +LISI20TA26 PO
--- NOTE | 2022-04-08 12:44 | Diagnostic Imaging Report ---
Indication: Left ankle pain. Time of Exam: 11:57 AM 2 views of the left ankle were obtained. The mortise is well maintained. Talar dome is smooth. There is a small calcific density adjacent to the lateral process of the talus on the AP view. This may represent a small fracture fragment, age indeterminate. No other fractures are seen. Impression: Age-indeterminate probable avulsion-type fracture of the lateral process of the talus. The study is otherwise unremarkable. Dictated by: Dictated on workstation # [id number]
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
== END ==
LOC: RAD 11:22
PROVIDERS: ATTEND Family Medicine
DX: S52.612K Displaced fracture of left ulna styloid process, subsequent encounter for closed fracture with nonunion (principal); M19.031 Primary osteoarthritis, right wrist; Z98.890 Other specified postprocedural states; S92.102A Unspecified fracture of left talus, initial encounter for closed fracture
CPT/HCPCS: 73600